=== PATIENT | male | born 1950 | race Caucasian/White ===

== ENCOUNTER 2023-03-31 07:18 | Outpatient (CLI) | payer BC, SELFPAY | END 2023-03-31 07:19 | disposition home or self-care (01) | PROVIDERS: PCP Family Medicine; Visit Provider Family Medicine | DX: Z00.00 Encounter for general adult medical examination without abnormal findings (principal); R73.03 Prediabetes; I10 Essential (primary) hypertension; R00.0 Tachycardia, unspecified; Z01.818 Encounter for other preprocedural examination; Z83.3 Family history of diabetes mellitus | CPT/HCPCS: 80053; 87086 ==

== ENCOUNTER 2023-04-01 12:28 | Outpatient (CLI) | payer BC, SELFPAY ==
--- NOTE | 2023-04-01 13:00 | CRLHL7_ITS ---
For Patients: As a result of the Century Cures Act, medical imaging exams and procedure reports are released immediately into your electronic medical record. You may view this report before your referring provider. If you have questions, please contact your health care provider. Indication: Palpable lump. Technique: Ultrasound soft tissue neck with color Doppler analysis. Comparison: None. Findings/Impression: In the midline area of concern is a soft tissue nodule measuring 7 x 6 x 2 cm. 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 No other abnormality. Dictated by Bandar Zeng MD @ 04/03/2023 8:18:15 AM (Electronically Signed)
== END 2023-04-01 12:29 | disposition home or self-care (01) ==
LOC: US 12:29
PROVIDERS: PCP Family Medicine; Visit Provider Family Medicine
DX: R22.1 Localized swelling, mass and lump, neck (principal); M89.8X8 Other specified disorders of bone, other site
CPT/HCPCS: 76536

== ENCOUNTER 2023-04-07 07:59 | Outpatient (CLI) | payer BC, SELFPAY ==
[2023-04-07] MEDS: SODIUM CHLORIDE 0.9 % (FLUSH) 10 ML SYRINGE IVF (09:58)
[2023-04-07] MEDS: REGADENOSON 0.4 MG/5 ML SYRINGE IVP (09:58)
[2023-04-07 10:10] VITALS: BP 137/81; PULSE 108; RESP 16
--- NOTE | 2023-04-07 13:21 | W.PM.STED ---
Stress Test Note Date Date of test: 04/07/23 Providers Primary care provider: Alysha Diaz Stress test physician: Jaron López Stress Test Note Stress test ordered: Lexiscadi Indication for test: Preoperative examination, shortness of breath Stress test medicine: Lexiscan Results discussion: patient is a very nice said gentleman who presents for the above test after discussion the risks benefits and side effects he would like to proceed pretest EKG shows normal sinus rhythm with a ventricular rate 82 and a blood pressure 129 on 82. Standard Lexiscan non walking protocol is used over a time course of 5 minutes, his maximum was 117, he did not develop any chest pain or any anginal equivalent symptoms, there is no dysrhythmias, there is no ST wave changes suggestive ischemia, and recovered normally. Impression: Negative electrographic portion of Lexiscan Follow up suggested: await nuclear images these will be jointly read by Cardiology and nuclear Medicine, clinical correlation with these will be needed, he recovered normally and was discharged from this department.
== END 2023-04-07 08:00 | disposition home or self-care (01) ==
LOC: STRESS 08:00
PROVIDERS: PCP Family Medicine; Visit Provider Family Medicine
DX: Z01.818 Encounter for other preprocedural examination (principal); R00.0 Tachycardia, unspecified; R94.31 Abnormal electrocardiogram [ECG] [EKG]
CPT/HCPCS: 78452; 93016; 93017; A9500; J2785

== ENCOUNTER 2023-05-28 14:47 | Outpatient (RCR) | payer BC, SELFPAY ==
--- NOTE | 2023-05-28 16:35 | PT.OPEX ---
PT [place] Outpatient Eval PT [facility] Outpatient Eval Start: 05/28/23 08:16 Freq: Status: Active Protocol: Document 05/28/23 08:18 AMS (Rec: 05/28/23 16:33 AMS [id number]) E-signed By Frieda Joseph PT Physical Therapy Outpatient Evaluation Insurance Information Recert Due Date 08/21/23 Insurance Name Medicare B,Blue Cross/Blue Shield Medical Diagnosis S/p right total hip arthroplasty Primary unilateral right hip osteoarthritis Presence of right artificial hip joint Treating Diagnosis Aftercare following joint replacement Right hip pain/stiffness Muscle weakness Difficulty walking Referring MD Hdez Subjective Subjective Nico is a new patient in my office today. He is a pleasant 72yr old male. Previous Dr. Camejo patient. Presents with right hip pain. He reports pain in the groin for several years. This has been progressive over the past 6 months. He has start-up pain and trouble with his shoes and socks. No trouble getting in and out of a vehicle or on and off a chair. He does not have diabetes, does not smoke cigarettes and is not on blood thinners. -Dr. Hdez, , confirmed by patient Patient presents to therapy three weeks prior to right total hip arthroplasty with anterior approach. His surgery date has been switched several times, but is now 06/16 . He localizes pain to right groin, sometimes radiating back into lateral hip, and worsens with all weightbearing activities, including walking , standing, stairs, squatting, and fishing. He started using the quad cane 3 months ago to help with balance/gait. He is scheduled to complete post-op physical therapy at [facility] in [place]. Previous treatment includes physical therapy, but this was minimally helpful long-term. He notes having to alter how he gets into the car; has to bring right hip in first, otherwise difficulty performing. Please see pre-op note for full home set up; patient is able to move his bed to main level after surgery, but most go upstairs to shower. His , who is present at appointment today, will be available 24-7 after surgery. He owns a 4WW that he sometimes uses for longer distances and a 2WW as well. Goals after surgery are to return to walking, fishing, and pain-free activities. He does not formally exercise, although tries to do daily body weight-type exercises for upper body. 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 [facility] Preferred Name Nico Precautions Treatment Precautions/Contraindications Hypertension, hx of skin cancer, left knee surgery 20+ years ago (pt reports meniscal involvement), fall risk Weight Bearing Status Weight Bear as Tolerated Objective Other/Pertinent Objective ROM L knee 0-20-112 (able to actively achieve 10 deg from neutral w/ extension w/ cues for quad set) R knee 0-30-125 (able to actively achieve 5 deg from neutral w/ extension w/ cues for quad set) Hip flexion: 100 deg left, 90 with pain on right Hip IR: L 5 deg R 0 deg Hip ER: moderately limited on right, WFL on left Hip abduction: moderately limited on right Strength: Hip flexors: R 3-/5 L 4/5 Knee extensors: R 4/5 L 4/5 Hip abductors: Not tested Gait/balance: Ambulates with significantly antalgic gait on right w/ quad point cane in left UE, lack of terminal knee extension L > R, forward flexed posture, and lateral sway. Decreased marilin. Palpation/joint mobility: Mild tenderness to palpation over anterior hip. Functional Test Performed & Score LEFS: Not assessed Assessment Assessment/Impression Patient is a 73 year old male presenting for pre-operative visit prior to right total hip arthroplasty on 06/16/23. Upon assessment, patient displays decreased hip/knee ROM, decreased proximal hip strength, impaired balance, and antalgic/impaired gait pattern that places him at increased risk for falls. These impairments lead to difficulty with getting in and out of the car, walking, standing up from a chair, standing, stairs, squatting, and fishing. Patient will be seen post operatively at [facility] to reassess impairments that will be addressed with skilled care. Nico would greatly benefit from skilled PT in order to progress strength, ROM, and ambulation as well as decrease fall risk post operatively in order to perform all household and work duties without significant difficulty or discomfort. Primary Functional Limitations getting in and out of the car, walking, standing up from a chair, standing, stairs, squatting, and fishing Plan of Care Rehabilitation Potential Good Physical Therapy Goals After pre-op visit: ? Patient will be independent with HEP. ? Patient will verbalize knowledge of stair navigation and proper sequencing. ? Patient will have knowledge on home adaptations and use of assistive devices post operatively. ? Patient will have knowledge of edema management. ALL [facility] Coordination/Communication With Referral Source Treatment Plan/Direct Interventions Gait Training,Joint Mobilization,Manual Therapy, Neuromuscular Re-ed,Self-Care/ Home Management,Therapeutic Activities,Therapeutic Exercises Frequency/Duration 1x visit prior to surgery on . Patient scheduled to start outpatient PT s/p SHANIA on 06/23/23. Has HEP to start with pre-operatively. Patient Will Be Discharged From Therapy Completion of LTG(s), Independent w/HEP, Independently Progressing Evaluation Billing Untimed Code Treatment Minutes 15 Complexity Low Certification Information Initial Certification Date 05/28/23 Ending Certification Date 08/21/23 Provider Signature Shows Agreement With POC & Medical Necessity Physician Signature & Date Requested Please Sign/Date Here Physician Comment/Change : Physician NPI Number #
== END 2023-09-25 23:59 | disposition home or self-care (01) ==
PROVIDERS: PCP Family Medicine; Visit Provider Orthopaedic Surgery
DX: M16.11 Unilateral primary osteoarthritis, right hip (principal); Z51.89 Encounter for other specified aftercare
CPT/HCPCS: 97110; 97161

== ENCOUNTER 2023-06-14 09:33 | Outpatient (CLI) | payer BC, SELFPAY | END 2023-06-15 11:08 | disposition home or self-care (01) | LOC: NPINS 06-15 11:11 → LAB 06-15 11:12 | PROVIDERS: PCP Family Medicine; Visit Provider Orthopaedic Surgery | DX: Z01.818 Encounter for other preprocedural examination (principal) | CPT/HCPCS: 86850; 86900; 86901 ==

== ENCOUNTER 2023-06-16 08:39 | Day surgery (SDC) | payer MEDICARE, SELFPAY ==
[2023-06-16] VITALS (22 sets, daily range): BP systolic 88–151; BP diastolic 56–96; PULSE 10–105; RESP 14–18; TEMP 35.8–36.8; O2SAT 94–100; BMI 30.4
--- OUTSIDE RECORDS SUMMARY | 2023-06-16 08:42 | XMS_ITS | Encounter Summary ---
Author Name Unknown Organization [facility] Address [address] [address] Phone Care Team Providers Care Brake Drum Molder Name Role Phone Donnell Hou MD Primary Care Provider Encounter Details Date Type Department Care Team (Latest Contact Info) Description 11/13/2022 Travel Social History Tobacco Use Types Packs/Day Years Used Date Smoking Tobacco: Never Smokeless Tobacco: Former Chew Comments:quit approx 1 year ago Alcohol Use Standard Drinks/Week Comments Yes 0 (1 standard drink = 0.6 oz pur e alcohol) 2-3 drinks monthly Humiliation, Afraid, Rape, and Kick questionnair e Answer Date Recorded Within the last year, have y ou been afraid of your partner or ex-partner? No 02/27/2021 Within the last year, have y ou been humiliated or emotionally abused in other ways by your partner or ex-partner? No Within the last year, have y ou been kicked, hit, slapped, or otherwise physically hurt by your partner or ex-partner? No 02/27/2021 Within the last year, have y ou been raped or forced to have any kind of sexual activity by your partner or ex-partner? No 02/27/2021 Social Connection and Isolation Panel [NHANES] A nswer Date Recorded In a typical week, how many times do you talk on the phone with family, friends, or neighbors? Never 02/27/2021 How often do you get together with friends or re latives? Once a week 02/27/2021 How often do you attend mu-ism or yarsanism serv ices? Never 02/27/2021 Do you belong to any clubs o r organizations such as mu-ism groups, unions, fraternal or athletic groups, or school groups? No 02/27/2021 How often do you attend meet ings of the clubs or organizations you belong to? Never 02/27/2021 Are you , , di vorced, , never , or living with a partner? 02/27/2021 AUDIT-C Answer Date Recorded Q1: How often do you have a drink containing alc ohol? 2-4 times a month 02/27/2021 Q2: How many drinks containi ng alcohol do you have on a typical day when you are drinking? 1 or 2 02/27/2021 Q3: How often do you have si x or more drinks on one occasion? Never 02/27/2021 Overall Financial Resource Strain (CARDIA) Answe r Date Recorded How hard is it for you to pa y for the very basics like food, housing, medical care, and heating? Not hard at all 08/25/2022 PHQ-2 Answer Date Recorded PHQ-2 Total 0 08/25/2022 [employer] of Occupat ional [facility] - Occupational Stress Questionnaire Answer Date Recorded Do you feel stress - tense, restless, nervous, or anxious, or unable to sleep at night because your mind is troubled all the time - these days? Not at all 02/27/2021 Exercise Vital Sign Answer Date Recorde d On average, how many days pe r week do you engage in moderate to strenuous exercise (like a brisk walk)? 7 days 02/27/2021 On average, how many minutes do you engage in exercise at this level? 40 min 02/27/2021 Hunger Vital Sign Answer Date Recorded Within the past 12 months, y ou worried that your food would run out before you got the money to buy more. Never true 08/26/19 23 Within the past 12 months, t he food you bought just didn't last and you didn't have money to get more. Never true 08/25/2022 [facility] - Transportation Answer Date Re corded In the past 12 months, has l ack of transportation kept you from medical appointments or from getting medications? No 08/03 In the past 12 months, has l ack of transportation kept you from meetings, work, or from getting things needed for daily living? No 08/25/2022 Sex and Gender Information Value Date Recorded Sex Assigned at Not on file Gender Identity Not on file Sexual Orientation Not on file Job Start Date Occupation Industry Not on file Not on file Not on file COVID-19 Exposure Response Date Recorded In the last 10 days, have yo u been in contact with someone who was confirmed or suspected to have Coronavirus/COVID-19? No / Unsure 11/13/2022 9:00 AM CDT documented as of this encounter Functional Status Functional Status Response Date of Assess ment Patient's Vision Adequate to Safely Complete Daily Activities Yes 08/10/2022 Patient's Memory Adequate to Safely Complete Daily Activities Yes 08/10/2022 Cognitive Status Response Date of Assessm ent Patient's Judgment Adequate to Safely Complete Daily Activities Yes 08/10/2022 documented as of this encounter Plan of Treatment Not on file documented as of this encounter Visit Diagnoses Not on filedocumented in this encounter Care Teams Brake Drum Molder Relationship Specialty Start Date End Date Donnell Hou MD [address] [place] [address] [phone] PCP - General 12/11/11 documented as of this encounter
--- OUTSIDE RECORDS SUMMARY | 2023-06-16 08:42 | XMS_ITS | Encounter Summary ---
Author Name Unknown Organization [facility] [employer] Replaced By [facility] Address [address] [address] Phone Care Team Providers Care Solar Sales Estimator Name Role Phone Donnell Hou MD Primary Care Provider Encounter Details Date Type Department Care Team (Latest Contact Info) Description 12/19/2022 Travel Social History Tobacco Use Types Packs/Day [...] week 02/27/2021 How often do you attend latter-day or latter-day serv ices? Never 02/27/2021 Do you belong to any clubs o r organizations such as latter-day groups, unions, fraternal or athletic groups, or [...] Answer Date Recorded PHQ-2 Total 0 08/25/2022 [facility] of Occupat ional [facility] - Occupational Stress Questionnaire Answer Date Recorded [...] file Not on file Not on file documented as of this encounter Functional Status [...] on filedocumented in this encounter Care Teams Solar Sales Estimator Relationship Specialty Start Date End Date Donnell Hou MD [address] [place] [address] [phone] PCP - General 12/11/11 documented as of this encounter
--- OUTSIDE RECORDS SUMMARY | 2023-06-16 08:42 | XMS_ITS | Encounter Summary ---
Author Name Unknown Organization [facility] [email or web address] [facility] Address [address] [address] Phone Care Team Providers Care Therapeutic Massage Technician Name Role Phone Donnell Hou MD Primary Care Provider Encounter Details Date Type Department Care Team (Latest Contact Info) Description 12/05/2022 Travel Social History Tobacco Use Types Packs/Day [...] week 02/27/2021 How often do you attend voodoo or adventism serv ices? Never 02/27/2021 Do you belong to any clubs o r organizations such as voodoo groups, unions, fraternal or athletic groups, or [...] Answer Date Recorded PHQ-2 Total 0 08/25/2022 [facility] of Occupat ional [facility] - Occupational Stress Questionnaire Answer Date [...] suspected to have Coronavirus/COVID-19? No / Unsure 11/17/2022 8:08 AM CDT documented as of this encounter [...] on filedocumented in this encounter Care Teams Therapeutic Massage Technician Relationship Specialty Start Date End Date Donnell Hou MD [address] [place] [address] [phone] PCP - General 12/11/11 documented as of this encounter
--- OUTSIDE RECORDS SUMMARY | 2023-06-16 08:42 | XMS_ITS | Encounter Summary ---
Author Name Unknown Organization [facility] and [facility] Address [address] [address] Phone Care Team Providers Care Biodiesel Plant Operations Engineer Name Role Phone Donnell Hou MD Primary Care Provider Reason for Visit * Reason Comments Skin Check Encounter Details Date Type Department Care Team (Late st Contact Info) Description 11/03/2022 2:15 PM CDT Office Visit [facility] [address] [place] [address] Sunny Manrique, BM, [facility] [address] [place], [place] [id number] Skin tumor (Primary Dx); Actinic keratoses; Actinic skin damage; Seborrheic keratoses; Lentigines; Encounter for follow-up surveillance of skin cancer Social History Tobacco Use Types Packs/Day Years Used Date Smoking Tobacco: Never Smokeless Tobacco: Former Chew Tobacco Cessation:Counseling Given: Not Answered Comments:quit approx 1 year ago Alcohol Use [...] week 02/27/2021 How often do you attend caodaism or taoism serv ices? Never 02/27/2021 Do you belong to any clubs o r organizations such as caodaism groups, unions, fraternal or athletic groups, or [...] Answer Date Recorded PHQ-2 Total 0 08/25/2022 [facility] - Occupational Stress Questionnaire Answer Date Recorded [...] suspected to have Coronavirus/COVID-19? No / Unsure 11/03/2022 1:39 PM CDT documented as of this encounter Functional Status Functional Status Response Date of Assess ment Patient's Vision Adequate to Safely Complete Daily Activities Yes 08/10/2022 Patient's Memory Adequate to Safely Complete Daily Activities Yes 08/10/2022 Cognitive Status Response Date of Assessm ent Patient's Judgment Adequate to Safely Complete Daily Activities Yes 08/10/2022 documented as of this encounter Patient Instructions * Patient Instructions* Pearl Montana, THROUGH FREIGHT ENGINEER - 11/03/2022 2:15 PM CDT Thank you for your visit today. Be sure to keep an eye on any new or changing spots. Be sure to wear a broad spectrum sunscreen daily, SPF 30 or higher. Broad Spectrum sunscreens protect the skin from UVA and UVB rays, which are a common cause of skin cancer. If you are out in the sun, or in the water, be sure to re- apply often. Sunscreens are not waterproof or sweatproof, and need to be reapplied. POST SURGERY WOUND CARE INSTRUCTIONS WITH STITCHES KEEP BANDAGE DRY AND IN PLACE FOR THE FIRST 24 HOURS. If it accidentally gets wet or very dirty, itis ok to change it sooner. AFTER 24 HOURS you may shower, but DO NOT soak in a bathtub, pool, or hot tub. Take care of your wound every day by cleaning daily with tap water. Use a gentle twirling motion with a Q-tip to lift any debris that might accumulate. Put a thin layer of Vaseline directly on your wound and cover with a clean, dry bandage every day until you have your stitches removed. If you have signs/symptoms of infection; such as increased redness, swelling, pain, drainage, warmth at site or fever, please contact our office or go to Urgent Care or ER if after hours or on weekends. If your surgery was on facial area(s) such as near eyes or forehead, please note that you may develop some bruising or swelling. This is very common and will diminish - you will benefit by trying to sleep with head slightly elevated for 1-2 days. IF YOU HAVE PAIN: Frequent icing can help with pain and swelling, make sure bandage does not get wet. If your health permits, take acetaminophen (Tylenol) 325mg 1 or 2 tablets every 4 to 6 hours as needed for pain. After 48 hours you may alternate with ibuprofen (brand names include Motrin or Advil) 400mg every 6 hours. Elevating the surgical site will also help with pain and swelling. IF YOU HAVE BLEEDING: Hold firm continuous pressure for 15-20 minutes without stopping to check site. Also, using cold compresses with firm pressure for 15 minutes can help stop bleeding. If this continues after 2 attempts, please contact our office or go to ER. Stitches should be removed in 14 days. If this has not been scheduled, please call our office to schedule at [phone]. You can also have this done at a clinic closer to you. documented in this encounter Ordered Prescriptions Prescription Sig Dispensed Refills Start Date End Da te fluorouracil (Efudex) 5 % cream Apply topically two times a day. To dorsal hands, forearms and ears for 2-3 weeks as instructed 40 g 1 11/03/2022 documented in this encounter Progress Notes * Sunny Manrique BM, [facility] - 11/03/2022 2:15 PM CDT Mr. Clements is a pleasant 72-year-old gentleman who presents today for a waist-up skin examination. He noticed numerous new scaly spots on the dorsal hands and forearms. ?? PAST MEDICAL HISTORY: 1. Nonmelanoma skin cancer. 2. Actinic keratoses. 3. Atypical nevus. 4. 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 ?? 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 He spends the winter months in the [facility] in [place] from about February to August. ROS: no lymphadenopathy ?? PHYSICAL EXAMINATION: a waist-up skin examination was performed at the patient's request. The skin was palpated. This is remarkable for an irregularly pigmented bluish macule on the central lower back. Numerous erythematous, rough, scaly macules are also noted, including on the bilateral ears, dorsal hands, dorsal forearms, scalp (frontal and parietal) and forehead. 16 individual actinic keratoses identified with prominent background actinic skin damage on the ears, dorsal hands and forearms. Multiple lentigines and stuck-on, waxy, hyperkeratotic papules. Well-healed scars, including on the left ear and left jawline. ?? ASSESSMENT AND PLAN: NUB, lower back Recommended punch biopsy for diagnosis due to uncertain etiopathogenesis. Risks including scarring,bleeding, infection and need for more surgery were reviewed. Benefits, alternatives of procedure and necessity of other healthcare team members involved in procedure was discussed Verbal consent was obtained. Before procedure, pause conducted and patient identity, procedure, site, position, specialequipment/requirements were verified. Patient confirmed the correct site. Time out for safety was performed. PROCEDURE DETAILS Punch biopsy. Indication: Diagnosis due to uncertain etiopathogenesis. Each lesion was marked with a surgical pen and confirmed with the patient. Each area was prepped and draped in the usual clean fashion. Each lesion was anesthetized with 1% lidocaine. A punch biopsy was performed of each lesion using a punch biopsy. Each wound was closed with Nylon skin sutures. Hemostasis was confirmed. Estimated blood loss: Minimal. Complications: None. Wound dressing applied, care instructions explained. Care instructions provided to the patient. Actinic keratoses x 16. Given the precancerous nature of these lesions, their removal is medically indicated. Specific locations are specified above and/or in the physical exam. After discussion of the risks, benefits, and alternatives to treatment with cryotherapy, informed consent was obtained. The lesion(s) were treated with liquid nitrogen cryotherapy. Treatment locations are separate and distinct from biopsy sites (if any). The patient tolerated the procedure well. Aftercare instructions were provided in written and verbal form to the patient. Should any of these lesions recur or persist, should the patient develop new symptoms or signs, the patient should return for biopsy. History of nonmelanoma skin cancer. The patient has a history of nonmelanoma (keratinocyte) skin cancer. Due to the history of nonmelanoma skin cancer, there is an increased risk of an additional nonmelanoma skin cancer in the future as compared to patients without this characteristic; therefore, recommended monthly skin self-examinations with the aid of another trusted individual for assistance to evaluate for new, changing, symptomatic, or otherwise worrisome lesions of the skin as these can be signs of skin cancer. Photoprotection was advised and strategies identified. Recommend regular follow-up with a qualified medical provider for complete skin cancer screening examinations. Lentigines. The benign nature of this type of skin lesion(s) was discussed with the patient. No treatment is required. I recommend continued observation. Should symptoms or changes develop related tothis condition, I would recommend a return visit for reassessment. Seborrheic keratoses. The benign nature of this type of skin lesion(s) was discussed with the patient. No treatment is required. I recommend continued observation. Should symptoms or changes develop related to this condition, I would recommend a return visit for reassessment. Actinic skin damage. He has fairly prominent actinic skin damage on his dorsal hands, forearms and ear. We discussed that this is a chronic condition for him that is associated with an increased riskof cutaneous malignancy. He previously completed a field-based therapy treatment for the scalp and part of the face (on further questioning, he did not include the ears at that time), which led to significant improvement. Due to his exacerbation in these aforementioned we will proceed field-based therapy after the summer (in the short-term we treated several lesions with localized therapy as noted above). We discussed risks, benefits and alternatives and he would like to proceed. I issued a prescription for topical fluorouracil and reviewed the risks, side effects and appropriate use, with detailed treatment instructions for which areas to apply this. documented in this encounter Miscellaneous Notes * Clinical Note - Pearl Montana CMA - 11/03/2022 2:15 PM CDT No artificial parts, defibrillator, pacemaker, or heart valve. * Result Encounter Note - Sunny Manrique BM [facility] - 11/03/2022 2:15 PM CDT Needs re-excision (based on dermatopathologist recommendations); please schedule for excision, December 05, at 1.15pm. * Result Encounter Note - Shyla Robertson RN - 11/03/2022 2:15 PM CDT Notified and scheduled. documented in this encounter Plan of Treatment Not on file documented as of this encounter Procedures Procedure Name Priority Date/Time Associated Diagnosis Comments PUNCH BIOPSY OF SKIN (INCLUDING SIMPLE CLOSURE, WHEN PERFORMED); SINGLE LESION Routine 11/03/2022 2:17 PM CDT Skin tumor DESTROY PREMLG LESIONS 15+ Routine 11/03/2022 2:17 PM CDT Actinic keratoses PATHOLOGY SPEC Routine 11/03/2022 1:53 PM CDT Skin tumor documented in this encounter Results * PATHOLOGY SPEC (11/03/2022 1:53 PM CDT) Case Report Surgical Pathology Report ? Case: [id number] ? Authorizing Provider: ??Sunny Manrique BM [facility] ?? Collected: ? 11/03/2022 1353 ? Ordering Location: ? [facility] ? Received: ?11/03/2022 1420 ? CLINIC DERMATOLOGY ? Pathologist: ? Janes Jeter MD ? Specimen: ?Back Lower ? 11/07/2022 10:07 AM [facility] Final Dx Skin, lower back, punch biopsy: Combined nevus (deep penetrating nevus and conventional compound nevus), extending to the biopsy edge. 11/07/2022 10:07 AM [facility] Comments A reexcision of this site is recommended. This case has also been reviewed by Dr. Warren Gil who concurs. 11/07/2022 10:07 AM [facility] Gross Description A. Back Lower. Received is 1 container, specimen in formalin, labeled with proper patient identification. Designated lower back is a 0.5 cm in punch of a brown/michaud, mottled macule. Inked green, submitted bisected, entirely in A1. MMF 11/07/2022 10:07 AM CDT [facility] Microscopic The slide is a punch biopsy fragment of skin which has a compound melanocytic proliferation which is fairly symmetrical with a shouldering junctional component. The junctional melanocytes are lentiginous and focally nested and extend to the biopsy edge. The underlying dermal component has a biphasic morphology. The majority of the dermal melanocytes are of the conventional type with deep maturation and no significant cytologic atypia. There is a second component which is composed of more epithelioid melanocytes with abundant amount of melanin pigmentation and nuclear enlargement. These extend into the reticular dermis. The lesion extends to the punch biopsy edge. 11/07/2022 10:07 AM CDT [facility] Tissue ENTIRE LOWER BACK / Unknown Non-blood collection / Unknown 11/03/2022 1:53 PM CDT 11/03/2022 2:20 PM CDT Sunny Manrique BM, [facility] PATHOLOGY YOVANNY TAYLOR [facility] [address] [place] [address], [facility] documented in this encounter Visit Diagnoses Diagnosis Skin tumor- Primary Neoplasm of uncertain behavior of skin Actinic keratoses Actinic keratosis Actinic skin damage Other chronic dermatitis due to solar radiation Seborrheic keratoses Lentigines Other dyschromia Encounter for follow-up surveillance of skin cancer documented in this encounter Orders Procedures Count Last Ordered Date First Orde red Date DESTROY PREMLG LESIONS 15+ 1 11/03/2022 PUNCH BIOPSY OF SKIN (INCLUD ING SIMPLE CLOSURE, WHEN PERFORMED); SINGLE LESION 1 11/03/2022 documented in this encounter Care Teams Biodiesel Plant Operations Engineer Relationship Specialty Start Date End Date Donnell Hou MD [address] [place] [phone] PCP - General 12/11/11 documented as of this encounter
--- OUTSIDE RECORDS SUMMARY | 2023-06-16 08:42 | XMS_ITS | Encounter Summary ---
Author Name Unknown Organization [facility] Address [address] [address] Phone Care Team Providers Care Computer Security Manager Name Role Phone Donnell Hou MD Primary Care Provider Reason for Visit * Reason Comments Suture Removal Back Encounter Details Date Type Department Care Team (Late st Contact Info) Description 12/19/2022 8:40 AM CDT ALLIED HEALTH/NURSE VISIT [facility] [address] [place] [phone] Maria Dolores Schroeder RN Suture Removal (Back) Social History Tobacco Use Types Packs/Day Years [...] week 02/27/2021 How often do you attend pentecostalism or anglican serv ices? Never 02/27/2021 Do you belong to any clubs o r organizations such as pentecostalism groups, unions, fraternal or athletic groups, or [...] Answer Date Recorded PHQ-2 Total 0 08/25/2022 [facility] ional Health - Occupational Stress Questionnaire Answer [...] Yes 08/10/2022 documented as of this encounter Progress Notes * Maria Dolores Schroeder RN - 12/19/2022 8:40 AM CDT Patient presents to clinic today for removal of sutures from lesion removal done by Dr. Manrique on 12/05/2022. Patient denies any problems with wound. Wound edges are clean, dry, well approximated. 3 sutures removed without difficulty. Steri-strips applied on back locations. Patient will continue to monitor for signs of infection or other problems.Patient will call back with questions or concerns on an as needed basis. Patient tolerated procedure well. documented in this encounter Plan of Treatment Not on file documented as of this encounter Procedures Procedure Name Priority Date/Time Associated Diagnosis Comments NO LOS CHARGE Routine 12/19/2022 11:23 AM CDT Encounter for removal of sutures documented in this encounter Visit Diagnoses Diagnosis Encounter for removal of sutures- Primary documented in this encounter Orders Procedures Count Last Ordered Date First Orde red Date NO LOS CHARGE 1 12/19/2022 documented in this encounter Care Teams Computer Security Manager Relationship Specialty Start Date End Date Donnell Hou MD [address] [place] [phone] PCP - General 12/11/11 documented as of this encounter
--- OUTSIDE RECORDS SUMMARY | 2023-06-16 08:42 | XMS_ITS | Encounter Summary ---
Author Name Unknown Organization [facility] Address [address] [address] Phone Care Team Providers Care Spinneret Person Name Role Phone Donnell Hou MD Primary Care Provider Reason for Visit * Reason Onset Date Comments Results 11/07/2022 Lower back nevus combined needs wle Encounter Details Date Type Department Care Team (Late st Contact Info) Description 11/07/2022 Telephone [facility] [address] [place] [address] Shyla Robertson RN Results (Lower back nevus combined needs wle) Social History Tobacco Use Types Packs/Day Years [...] week 02/27/2021 How often do you attend latter day or buddhist serv ices? Never 02/27/2021 Do you belong to any clubs o r organizations such as latter day groups, unions, fraternal or athletic groups, or [...] Answer Date Recorded PHQ-2 Total 0 08/25/2022 [facility] ional Health - Occupational Stress [...] Yes 08/10/2022 documented as of this encounter Miscellaneous Notes * Telephone Encounter - Shyla Robertsno RN - 11/07/2022 11:37 AM CDT Patient notified as below. Reviewed general information regarding Mohs technique and answered questions to his satisfaction. Appointment scheduled for 12/05/22. Patient advised to call with any questions or concerns. Patient accepting and verbalized understanding. Had no further concerns at this time. ?? DERMATOLOGY PROCEDURE HEALTH HISTORY QUESTIONNAIRE Any artificial joints (hip, knee)? no -Date of surgery no -Any previous joint infections? no ?? Heart Problems? (stents, heart valve, previous infective endocardititis, congenital heart disease, cardiac transplant with valvulopathy)? no Implanted devices (Pacemaker/Defibrillator/Deep Brain Stimulator/Cochlear)? no ?? Have you been advised by any provider to take an antibiotic prior to dental work or other surgery? no -If so, for what reason? no -Preferred pharmacy? no ?? Taking any Blood Thinners (Coumadin/Warfarin, Plavix/Clopidogrel, apixaban (Eliquis), dabigatran (Pradaxa), edoxaban (Savaysa), rivaroxaban (Xarelto), also including Fish oil, Vitamin E, Garlic, Aspirin/NSAIDS? no -If so, for what reason? no -Who manages? no ?? Currently undergoing chemotherapy? no Immunosuppressed/Transplant (chart review) no ?? Diabetes? no If living in an assisted living/intermediate, do you have staff/family coming with you? no Do you need assistance with mobility? no VA patient? no All current medications/allergies: No Known Allergies Current Outpatient Medications Medication Sig ??? fluorouracil (Efudex) 5 % cream Apply topically two times a day. To dorsal hands, forearms and ears for 2-3 weeks as instructed ??? amLODIPine (Norvasc) 5 MG tablet Take 1 Tablet by mouth one time a day. IN THE EVENING ??? olmesartan-hydroCHLOROthiazide (Benicar HCT) 40-12.5 MG oral tablet TAKE 1 TABLET DAILY No current facility-administered medications for this visit. * Telephone Encounter - Shyla Robertson RN - 11/07/2022 10:50 AM CDT Skin, lower back, punch biopsy: Combined nevus (deep penetrating nevus and conventional compound nevus), extending to the biopsy edge. * Telephone Encounter - Shyla Robertson RN - 11/07/2022 10:50 AM CDT ----- Message from KEYON Iyer, [facility] sent at 11/07/2022 10:41 AM CDT ----- Needs re-excision (based on dermatopathologist recommendations); please schedule for excision, December 05, at 1.15pm. documented in this encounter Plan of Treatment Not on file documented as of this encounter Visit Diagnoses Not on filedocumented in this encounter Care Teams Spinneret Person Relationship Specialty Start Date End Date Donnell Hou MD [address] [place] [phone] PCP - General 12/11/11 documented as of this encounter
--- OUTSIDE RECORDS SUMMARY | 2023-06-16 08:42 | XMS_ITS | Clinical Summary ---
Author Name Unknown Organization [facility] [employer] [facility] Address [address] [address] Phone Care Team Providers Care Duck Operator Name Role Phone Donnell Hou MD Primary Care Provider Allergies No known active allergies Medications Medication Sig Dispensed Refills Start Date End Date Status amLODIPine (Norvasc) 5 MG tablet Take 1 Tablet by mouth one time a day. IN THE EVENING 90 Tablet 3 08/25/2022 Active olmesartan-hydroCHL OROthiazide (Benicar HCT) 40-12.5 MG oral tablet TAKE 1 TABLET DAILY 90 Tablet 3 08/25/2022 Active fluorouracil (Efudex) 5 % cream Apply topically two times a day. To dorsal hands, forearms and ears for 2-3 weeks as instructed 40 g 1 11/03/2022 Active Active Problems Problem Noted Date Diagnosed Date Concussion 08/10/2022 Subarachnoid bleed 08/10/2022 Mixed hyperlipidemia 12/23/2016 Gluteal tendinitis of left buttock 04/19/2012 Hamstring tightness/tendonitis left biceps femor is 04/19/2012 Special screening for malignant neoplasm of pros bergman 02/24/2011 Overview: IMO Update 02/11 Essential hypertension 10/17/2005 Overview: IMO Update Immunizations Name Administration Dates Next Due Influenza (Historic Use Only) 03/18/2011, 009 Influenza Fluzone High Dose (65+ Yrs) Tri PF (Flu Clinic) 01/22/2022,12/28/2020 Influenza High Dose Quadrivalent 01/12/2020 Influenza Seasonal Inj A,B High Dose 02/11/2019 Pneumococcal Conjugate, (Prevnar)13-valent 08/25 Pneumovax 23 12/23/2016 TD >7Yrs Preservative Free 07/28/2019 Tdap (7 years and older) 09/07/2017 Tetanus 01/26/2007 Surgical History Surgery Date Site/Laterality Comments COLONOSCOPY,BIOPSY 06/25/2012 [facility] dr denson--tubular adenoma Medical History Medical History Date Comments Unspecified essential hypertension 06/03/2004 Other and unspecified hyperlipidemia 06/03/2004 Hx of dyslipidemia Family History Medical History Relation Comments No Known Problems Brother Diabetes Father Diabetes Mother No Known Problems Sister 1 Diabetes Sister 2 Hypertension Sister 2 No Known Problems Sister 3 Cancer Negative Family Hx Cardiovascular Disease Negative Family Hx Relation Status Comments Brother Alive Father Mother Sister 1 Alive Sister 2 Alive Sister 3 Alive Social History Tobacco Use Types Packs/Day Years [...] often do you attend latter day or oriental orthodox serv ices? Never 02/27/2021 Do you belong [...] Answer Date Recorded PHQ-2 Total 0 08/25/2022 [facility] - Occupational Stress Questionnaire Answer Date [...] file Not on file Not on file Obstetrics History Last Filed Vital Signs Vital Sign Reading Time Taken Comments Blood Pressure 137/88 08/25/2022 10:37 AM CDT Pulse 61 08/25/2022 10:24 AM CDT Temperature 37 ??C (98.6 ??F) 08/25/2022 10: 20 AM CDT Respiratory Rate 18 08/25/2022 10:2 0 AM CDT Oxygen Saturation 97% 08/25/2022 10: 24 AM CDT Inhaled Oxygen Concentration - - Weight 87.4 kg (192 lb 10.9 oz) 023 10:20 AM CDT Height 165.1 cm (5' 5) 08/25/2022 10:2 0 AM CDT Body Mass Index 32.06 08/25/2022 10:20 AM CDT Plan of Treatment Health Maintenance Due Date Last Done Comments CT Colonography 1950 Colonoscopy 1950 Sigmoidoscopy 1950 Shingrix (Zoster recombinant) vaccine (Standing Order) (1 of 2) 1999 RSV Vaccination (60+ yrs) (Abrysvo/Arexvy) (1 - 1-dose 60+ series) 2009 FIT/FOBT 05/19/2013 05/19/2012 COVID-19 Vaccine ( - 2022- season) 2023 09/14/2020, 08/17/2020 Influenza Vaccine Seasonal (Standing Order) (#1) 2023 01/22/2022, 12/28/2020, 01/12/2020, Additional history exists MEDICARE AWV 08/26/2023 08/25/2022, 05/0 11/2017, 02/11/2016 (Declined) Cologuard 08/31/2025 08/31/2022 Colorectal Cancer Screening 08/31/2025 TETANUS (Standing Order) 07/27/2029 020, 09/07/2017, 01/26/2007 Pneumococcal Vaccine: 65+ yrs (Standing Order) Completed 12/23/2016, 08/25/2014 PERTUSSIS (Standing Order) Completed 09/07/2017 HPV Vaccine (Standing Order) Aged Out No longer eligible based on patient's age to complete this topic Hepatitis B Vaccine (Standing Order) Aged Out No longer eligible based on patient's age to complete this topic Advance Directives For more information, please contact: [phone] Latest Code Status on File Code Status Date Activated Date Inactivated Comments Full Code 08/10/2022 2:31 PM 08/11/2022 3:27 PM Care Teams Duck Operator Relationship Specialty Start Date End Date Donnell Hou MD [address] [place] [address] [phone] PCP - General 12/11/11
--- OUTSIDE RECORDS SUMMARY | 2023-06-16 08:42 | XMS_ITS | Encounter Summary ---
Author Name Unknown Organization [facility] [employer] [facility] Address [address] [address] Phone Care Team Providers Care Roofer Vinyl Coating Name Role Phone Donnell Hou MD Primary Care Provider Encounter Details Date Type Department Care Team (Latest Contact Info) Description 11/03/2022 Travel Social History Tobacco Use Types Packs/Day [...] week 02/27/2021 How often do you attend hindu or voodoo serv ices? Never 02/27/2021 Do you belong to any clubs o r organizations such as hindu groups, unions, fraternal or athletic groups, or [...] Answer Date Recorded PHQ-2 Total 0 08/25/2022 [facility]at ional [facility] - Occupational Stress Questionnaire Answer [...] on filedocumented in this encounter Care Teams Roofer Vinyl Coating Relationship Specialty Start Date End Date Donnell Hou MD [address] [place] [address] [phone] PCP - General 12/11/11 documented as of this encounter
--- OUTSIDE RECORDS SUMMARY | 2023-06-16 08:42 | XMS_ITS | Encounter Summary ---
Author Name Unknown Organization [facility] [employer] [facility] Address [address] [address] Phone Care Team Providers Care Scow Captain Name Role Phone Donnell Hou MD Primary Care Provider Encounter Details Date Type Department Care Team (Latest Contact Info) Description 11/17/2022 Travel Social History Tobacco Use Types Packs/Day [...] week 02/27/2021 How often do you attend zoroastrian or caodaism serv ices? Never 02/27/2021 Do you belong to any clubs o r organizations such as zoroastrian groups, unions, fraternal or athletic groups, or [...] Answer Date Recorded PHQ-2 Total 0 08/25/2022 [facility]at ional [facility] - Occupational Stress Questionnaire Answer Date [...] on filedocumented in this encounter Care Teams Scow Captain Relationship Specialty Start Date End Date Donnell Hou MD [address] [place] [address] [phone] PCP - General 12/11/11 documented as of this encounter
--- OUTSIDE RECORDS SUMMARY | 2023-06-16 08:42 | XMS_ITS | Encounter Summary ---
Author Name Unknown Organization [facility] Address [address] [address] Phone Care Team Providers Care Contract Preparer Name Role Phone Dnonell Hou MD Primary Care Provider Reason for Visit * Reason Comments Skin Procedure WLE Encounter Details Date Type Department Care Team (Late st Contact Info) Description 12/05/2022 1:15 PM CDT Office Visit [facility] [address] [place] [address] Sunny Manrique, BM, [facility] [address] [place] [address] Atypical nevus (Primary Dx) Social History Tobacco Use Types Packs/Day Years [...] week 02/27/2021 How often do you attend synagogue or confucianism serv ices? Never 02/27/2021 Do you belong to any clubs o r organizations such as synagogue groups, unions, fraternal or athletic groups, or [...] Answer Date Recorded PHQ-2 Total 0 08/25/2022 [facility] - Occupational Stress [...] this encounter Patient Instructions * Patient Instructions* Corinna Dotson RN - 12/05/2022 1:15 PM CDT POST SURGERY WOUND CARE INSTRUCTIONS WITH STITCHES Before you leave today, please schedule an appointment to have your stitches removed in 14 days. (Men - please do not shave within one inch of your sutures!) If you are planning to have your stitches removed elsewhere, please talk with one of our clinical staff to review importance of applying steri-strips or butterfly bandages afterwards [phone]. KEEP BANDAGE DRY AND IN PLACE FOR THE FIRST 48 HOURS. If it accidentally gets wet or very dirty, itis ok to change it sooner. AFTER 48 HOURS you may shower, but DO NOT soak in a bathtub, pool, or hot tub. Take care of your wound every day by cleaning daily with mild soap and water. Use a gentle twirlingmotion with a Q-tip to lift any debris that might accumulate. Put a thin layer of Vaseline directlyon your wound and cover with a clean, dry bandage every day until you have your stitches removed. If your surgery was on facial area(s) such as near eyes or forehead, please note that you may develop some bruising or swelling. This is very common and will diminish - you will benefit by trying to sleep with head slightly elevated for 1-2 days. If you have signs/symptoms of infection, such as increased redness, swelling, pain, drainage, warmth at site or fever, please contact our office or go to Urgent Care or ER if after hours or on weekends. IF YOU HAVE PAIN: Frequent icing can [...] contact our office or go to ER. CAll Hoffman to make appt for suture removal, ok for RN to do, order sent to their office. documented in this encounter Procedure Notes * Sunny Manrique, KEYON, [facility] - 12/05/2022 1:15 PM CDT INDICATION: REMOVAL POSTOP DIAGNOSIS: deeply penetrating nevus SITE: lower back Preoperative size: 0.4 cm x 0.4 cm with 2 mm circumferential margin for total excision diameter of 0.8 cm x 0.8 cm. PROCEDURE: Punch excision with intermediate primary closure INFORMED CONSENT: Risks including scarring, bleeding, infection and need for more surgery were reviewed. Benefits, alternatives of procedure and necessity of other healthcare team members involved inprocedure was discussed Verbal consent was obtained. Before procedure, pause conducted and patient identity, procedure, site, position, pecial equipment/requirements were verified. Time out for safety was performed. Prior to the procedure, final verification of the patient identity and correct marked surgical sitewas performed. The patient confirmed the site. The anesthesia used was 1% lidocaine with epinephrine 1:200,000. The skin was prepped in a sterile fashion with alcohol. A specimen was excised in a circular fashion through the full thickness of thedermis into the fat using a punch. All layers of skin were reapproximated with Monocryl subcutaneous sutures and Nylon skin sutures. Blood loss: Minimal. Complications: None. Wound care: Routine. Care instructions provided to the patient. documented in this encounter Miscellaneous Notes * Clinical Note - Corinna Dotson RN - 12/05/2022 1:15 PM CDT No artificial parts, defibrillator, pacemaker, or heart valve. * Result Encounter Note - Sunny Manrique BM [facility] - 12/05/2022 1:15 PM CDT Lesion removed, no further treatment required at this site. * Result Encounter Note - Vandana Montero RN - 12/05/2022 1:15 PM CDT Result letter sent * Addendum Note - Corinna Dotson RN - 12/05/2022 1:15 PM CDTAddended by: CORINNA DOTSON on: 12/05/2022 01:35 PM Modules accepted: Orders documented in this encounter Plan of Treatment Not on file documented as of this encounter Procedures Procedure Name Priority Date/Time Associated Diagnosis Comments LAYR REINALDO WND TRUNK,ARM,LEG <2.5CM Routine 12/05/2022 1:24 PM CDT Atypical nevus EXC SKIN BENIG 0.6-1CM TRUNK,ARM,LEG Routine 12/05/2022 1:24 PM CDT Atypical nevus PATHOLOGY SPEC Routine 12/05/2022 1:23 PM CDT Atypical nevus documented in this encounter Results * PATHOLOGY SPEC (12/05/2022 1:23 PM CDT) Case Report Surgical Pathology Report ? Case: [id number] ? Authorizing Provider: ??Sunny Manrique, BM, BC ?? Collected: ? 12/05/2022 1323 ? Ordering Location: ? [facility] ? Received: ?12/05/2022 1436 ? CLINIC DERMATOLOGY ? Pathologist: ? Warren Gil MD ? Specimen: ?Back Lower ? 12/11/2022 6:58 AM CDT [facility] Final Dx Skin, lower back, punch excision: Residual dermal nevus, free of the margins. 12/11/2022 6:58 AM CDT [facility] Gross Description A. Back Lower. Received in one container, specimen in formalin, labeled with proper patient identification. Designated lower back is a 0.9 cm larios-white skin punch excised to a depth of 0.9 cm. The skin is significant for a 0.5 cm larios-white well-healed scar, 0.1 cm to the nearest peripheral margin. Inked orange, sectioned and entirely and sequentially submitted in A1-A3. TME 12/11/2022 6:58 AM CDT [facility] Microscopic Microscopic examination performed. 12/11/2022 6:58 AM CDT [facility] Tissue ENTIRE LOWER BACK / Unknown Non-blood collection / Unknown 12/05/2022 1:23 PM CDT 12/05/2022 2:36 PM CDT Sunny Manrique BM, [facility] PATHOLOGY YOVANNY TAYLOR [facility] 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
--- OUTSIDE RECORDS SUMMARY | 2023-06-16 08:42 | XMS_ITS | Encounter Summary ---
Author Name Unknown Organization [facility] Address [address] [address] Phone Care Team Providers Care Rooming House Keeper Name Role Phone Donnell Hou MD Primary Care Provider Reason for Visit * Reason Comments Other Suture removal on ba ck Imm/Inj shingric Encounter Details Date Type Department Care Team (Latest Contact Info) Description 11/17/2022 8:20 AM CDT ALLIED HEALTH/NURSE VISIT [facility] [address] [phone] Magalys Kirk RN Other (Suture removal on back ); Imm/Inj (shingric) Social History Tobacco Use Types Packs/Day Years [...] week 02/27/2021 How often do you attend orthodox or synagogue serv ices? Never 02/27/2021 Do you belong to any clubs o r organizations such as orthodox groups, unions, fraternal or athletic groups, or [...] Total 0 08/25/2022 [facility] - Occupational Stress Questionnaire Answer Date [...] as of this encounter Miscellaneous Notes * Clinical Note - Patt Porter CMA - 11/17/2022 8:20 AM CDT This chart was prepped for visit by Patt Porter CMA on 11/14/2022. * Clinical Note - Magalys Kirk RN - 11/17/2022 8:20 AM CDT SUBJECTIVE: Alec returns today for suture removal. He had a lesion removed from his lower back on11/03/22 by Sunny TA, [facility]. No problems since then. OBJECTIVE: Area healed well. Sutures removed per clinic protocol without complication. ASSESSMENT: Suture Removal PLAN: Follow up as needed. documented in this encounter Plan of Treatment Not on file documented as of this encounter Visit Diagnoses Diagnosis Skin tumor- Primary Neoplasm of uncertain behavior of skin documented in this encounter Care Teams Rooming House Keeper Relationship Specialty Start Date End Date Donnell Hou MD [address] [place] [phone] PCP - General 12/11/11 documented as of this encounter
--- OUTSIDE RECORDS SUMMARY | 2023-06-16 08:43 | XMS_ITS | Encounter Summary ---
Author Name Unknown Organization [facility] Address [address] [address] Phone Care Team Providers Care Police Academy Program Coordinator Name Role Phone Donnell Hou MD Primary Care Provider Reason for Visit * Reason Onset Date Comments Refill Request 06/26/2022 Amlodipine Encounter Details Date Type Department Care Team (Late st Contact Info) Description 06/26/2022 Refill NURSE CARE LINE [address] [place] [address] Danielle Cameron RN Refill Request (Amlodipine ) Social History Tobacco Use Types Packs/Day Years [...] week 02/27/2021 How often do you attend yazidism or muslim serv ices? Never 02/27/2021 Do you belong to any clubs o r organizations such as yazidism groups, unions, fraternal or athletic groups, or [...] care, and heating? Not hard at all 02/03/2022 PHQ-2 Answer Date Recorded PHQ-2 Total 0 02/03/2022 [facility] of Occupat ional Health - Occupational Stress [...] the money to buy more. Never true 02/04/20 22 Within the past 12 months, t he food you bought just didn't last and you didn't have money to get more. Never true 02/03/2022 PRAPARE - Transportation Answer Date Re corded In the past 12 months, has l ack of transportation kept you from medical appointments or from getting medications? No 07/2021 In the past 12 months, has l ack of transportation kept you from meetings, work, or from getting things needed for daily living? No 02/03/2022 Sex and Gender Information Value Date Recorded Sex Assigned at Not on file Gender Identity Not on file Sexual Orientation Not on file Job Start Date Occupation Industry Not on file Not on file Not on file documented as of this encounter Ordered Prescriptions Prescription Sig Dispensed Refills Start Date End Da te amLODIPine (Norvasc) 5 MG tablet Take 1 Tablet by mouth one time a day. IN THE EVENING 30 Tablet 0 06/26/2022 08/11/2022 documented in this encounter Miscellaneous Notes * Telephone Encounter - Danielle Cameron RN - 06/26/2022 8:53 AM CST I have reviewed the documentation related to this refill. This refill request is Ok to authorize per the [facility] Medication Refill Standing Orders. BAILER * Telephone Encounter - Utility, Refill Wizard - 06/26/2022 8:50 AM BAG BAILER amLODIPine (Norvasc) 5 MG tablet Hypertension - Alpha/Beta/Calcium Channel Blockers -> The patient is requesting a renewal from a different pharmacy. -> If patient has a history of hypertension, ensure it was assessed in the last 12 months. -> Refill x 9 months, qty: 90, refills: 2 (until due for an office visit, DBP check and SBP check) Last qualifying visit: 02/03/2022 (with DONNELL HOU) Next scheduled visit: 12/10/2022 (in Family Practice) Last ordered by TACHO ELLIOTT M: 12/24/2021 (184 days ago) QTY: 90, Refills: 3, Sig: take 1 tablet by mouth one time a day. in the evening (unchanged) SBP: 138 mm Hg on 02/03/2022 DBP: 80 mm Hg on 02/03/2022 [facility] Embedded Refills, Reference: [id number], 06/26/2022 8:50:40 AM BAG BAILER, Pool: JULIOCESAR ([id number]) BAILER * Telephone Encounter - Danielle Cameron RN - 06/26/2022 8:48 AM CST [facility] Caller: Avani, Spouse ??[phone] (Today, ??8:24 AM) Call Center Refill Message Provider: Donnell Hou MD Medication: amLODIPine (Norvasc) 5 MG tablet Sig: Take 1 Tablet by mouth one time a day. IN THE EVENING Quantity: 90 Tablet Pharmacy: [facility], ??E- ?? Comments: No longer using [facility]. [facility]Patient is also requesting a 30 day supply of amLODIPine (Norvasc) 5 MG tablet be sent to [facility], [place], [place]. Informed patient to call the Pharmacy for refill status. Call Center Refill Message Medication: ??olmesartan-hydroCHLOROthiazide (Benicar HCT) 40-12.5 MG oral tablet Sig: ??TAKE 1 TABLET DAILY Quantity: ??90 Tablet BAILER documented in this encounter Plan of Treatment Not on file documented as of this encounter Visit Diagnoses Not on filedocumented in this encounter Discontinued Medications Medication Sig Discontinue Reason Start Date End Da te amLODIPine (Norvasc) 5 MG tablet Take 1 Tablet by mouth one time a day. IN THE EVENING Reorder 12/24/2021 06/26/2022 documented as of this encounter Care Teams Police Academy Program Coordinator Relationship Specialty Start Date End Date Donnell Hou MD [address] [place] [phone] PCP - General 12/11/11 documented as of this encounter
--- OUTSIDE RECORDS SUMMARY | 2023-06-16 08:43 | XMS_ITS | Encounter Summary ---
Author Name Unknown Organization [facility] Address [address] [address] Phone Care Team Providers Care Upper Trimmer Name Role Phone Donnell Hou MD Primary Care Provider Encounter Details Date Type Department Care Team (Latest Contact Info) Description 08/10/2022 Travel Social History Tobacco Use Types Packs/Day [...] week 02/27/2021 How often do you attend presybeterian or anglican serv ices? Never 02/27/2021 Do you belong to any clubs o r organizations such as presybeterian groups, unions, fraternal or athletic groups, or [...] Answer Date Recorded PHQ-2 Total 0 02/03/2022 [facility] of Occupat ional [facility] - Occupational Stress Questionnaire Answer Date [...] suspected to have Coronavirus/COVID-19? No / Unsure 08/10/2022 1:27 PM CDT documented as of this encounter [...] on filedocumented in this encounter Care Teams Upper Trimmer Relationship Specialty Start Date End Date Donnell Hou MD [address] [place] [address] [phone] PCP - General 12/11/11 documented as of this encounter
--- OUTSIDE RECORDS SUMMARY | 2023-06-16 08:43 | XMS_ITS | Encounter Summary ---
Author Name Unknown Organization [facility] [employer] [facility] Address [address] [address] Phone Care Team Providers Care Nuclear Power Plant Engineer Name Role Phone Donnell Hou MD Primary Care Provider Encounter Details Date Type Department Care Team (Latest Contact Info) Description 08/25/2022 Travel Social History Tobacco Use Types Packs/Day [...] week 02/27/2021 How often do you attend restorationist or congregational serv ices? Never 02/27/2021 Do you belong to any clubs o r organizations such as restorationist groups, unions, fraternal or athletic groups, or [...] Answer Date Recorded PHQ-2 Total 0 08/25/2022 [facility] of Occupat ional [facility] - Occupational Stress Questionnaire Answer Date Recorded [...] suspected to have Coronavirus/COVID-19? No / Unsure 08/25/2022 10:18 AM CDT documented as of this encounter [...] on filedocumented in this encounter Care Teams Nuclear Power Plant Engineer Relationship Specialty Start Date End Date Donnell Hou MD [address] [place] [phone] PCP - General 12/11/11 documented as of this encounter
--- OUTSIDE RECORDS SUMMARY | 2023-06-16 08:43 | XMS_ITS | Encounter Summary ---
Author Name Unknown Organization [facility] [employer] [facility] Address [address] [address] Phone Care Team Providers Care Clean In Places Operator Name Role Phone Donnell Hou MD Primary Care Provider Reason for Referral * Office Visit (Routine) Specialty Diagnoses / Procedures Referred By Erick chamberlain Referred To Contact Tamiko Shaikh APRN, CNP [address] [place] [address] Referral ID Status Reason Start Date Expiration Date Visits Re quested Visits Authorized Question Answer Follow-up With: Primary Care Referral Type: Hospital Follow-up Follow-up Time Frame: 2 Weeks Diagnosis supporting this Referral: Hospital discharge follow-up [[id number]] Reason for Visit * Reason Comments Fall * Auth/Cert (Routine) Specialty Diagnoses / Procedures Referred By Erick chamberlain Referred To Contact Diagnoses Contusion of scalp, initial encounter Injury of head, initial encounter Subarachnoid hematoma, with unknown loss of consciousness status, initial encounter (HCC) Donte Lobato MBBS [address] [place] [address] Referral ID Status Reason Start Date Expiration Date Visits Re quested Visits Authorized [id number] 1 1 Encounter Details Date Type Department Care Team (Late st Contact Info) Description 08/10/2022 9:14 AM CDT - 08/11/2022 11:27 AM CDT Emergency [facility] [address] [place] [address] [phone] Nahun Seth MD [address] [id number] Donte Lobato MBBS [address] [place] [address] Injury of head, initial encounter (Primary Dx); Subarachnoid hematoma, with unknown loss of consciousness status, initial encounter (HCC); Contusion of scalp, initial encounter; Subarachnoid bleed (HCC) Discharge Disposition: Home and/or Self Care Social History Tobacco Use Types Packs/Day Years [...] often do you attend latter day or pentecostalism serv ices? Never 02/27/2021 Do you belong [...] Answer Date Recorded PHQ-2 Total 0 02/03/2022 [facility] Occupat ional Health - Occupational Stress [...] PM CDT documented as of this encounter Last Filed Vital Signs Vital Sign Reading Time Taken Comments Blood Pressure 137/50 08/11/2022 9:37 AM CDT Pulse 98 08/11/2022 9:37 AM CDT Temperature 36.8 ??C (98.2 ??F) 08/11/2022 7:15 AM CD T Respiratory Rate 15 08/11/2022 9:37 AM CDT Oxygen Saturation 96% 08/11/2022 7:41 AM CDT Inhaled Oxygen Concentration - - Weight 83.9 kg (185 lb) 08/10/2022 7:15 PM CDT Height 165.1 cm (5' 5) 08/10/2022 7:15 PM CDT Body Mass Index 30.79 08/10/2022 7:15 PM CDT documented in this encounter Functional Status Functional Status Response Date of Assess ment Patient's Vision Adequate to Safely Complete Daily Activities Yes 08/10/2022 Patient's Memory Adequate to Safely Complete Daily Activities Yes 08/10/2022 Cognitive Status Response Date of Assessm ent Patient's Judgment Adequate to Safely Complete Daily Activities Yes 08/10/2022 documented as of this encounter Discharge Summaries * Tamiko Shaikh APRN, VERA - 08/11/2022 10:32 AM CDT Images from the original note were not included. Discharge Summary Hospital Medicine Service Patient Name: Alec Clements Date of : 1950 Age: 72 years old Primary Physician: Donnell Hou MD Admitting Physician: JOHNATHON Urias Admission Date: 08/10/2022 Discharging Physician: Tamiko Shaikh APRN, DBA DEVELOPER Dr. Donte Lobato Discharge Date: 08/11/2022 Discharge Diagnoses Principal Problem: Subarachnoid bleed (HCC) Active Problems: Essential hypertension Mixed hyperlipidemia Concussion Follow-Up Recommendations for the Outpatient Clinician -Hold ASA for at least 2 weeks or until you see Dr. Hou Hospital Course Mr. Alec Clements is a 72 year-old male with a past medical history notable for hypertension andhyperlipidemia who was admitted to the hospital on 08/10/22 for observation after he presented to theED with acute confusion and headache after a probable unwitnessed fall outside. Head CT showed a small amount of subarachnoid blood in the right temporal lobe. CT cervical spine showed degenerative changes, but no acute bony abnormalities. On 08/10, the ED provider discussed the case with Dr. Gonzalez from trauma surgery. She recommended admission overnight with a repeat head CT in the morning. Specialist was comfortable admitting in [place], as this was also the strong preference of the patient and . Repeat head CT from this morning showed a stable to decreasing subarachnoid hemorrhage along the right temporal lobe. There may be a small component of subdural hemorrhage along the temporal lobe on the right as well. I reviewed the head CT with Dr. Cook of trauma surgery this morning. She felt that the CT wasstable, and if clinically stable, ok to discharge. Hold ASA for at least 2 weeks or until he sees Dr. Hou. Avoid extreme fluctuations of blood pressure (goal <180 systolic). He was instructed to avoid heavy lifting, constipation, or anything that increases ICP. He and his were encouraged to return to the ED if he experienced altered mental status changes, gait instability, headache, or visual disturbances. Avoid NSAIDS and ETOH. Disposition and Discharge Plan Medications: Current Discharge Medication List Changed Prescriptions Details amLODIPine 5 MG tablet Commonly known as: Norvasc Dose: 5 mg 5 mg, Oral, ONCE DAILY, IN THE EVENING What changed: Another medication with the same name was removed. Continue taking this medication, and follow the directions you see here. aspirin EC 81 MG tablet Dose: 81 mg 81 mg, Oral, ONCE DAILY, Do not split or crush. Hold for at least 2 weeks or until you see Dr. Hou. What changed: additional instructions Continued Details olmesartan-hydroCHLOROthiazide 40-12.5 MG oral tablet Commonly known as: Benicar HCT TAKE 1 TABLET DAILY You might also be taking other medications not listed above. If you have questions about any of your other medications, talk to the person who prescribed them or your Primary Care Provider. Stopped fluorouracil 5 % cream Commonly known as: Efudex triamcinolone acetonide 0.1 % cream Commonly known as: Kenalog Disposition: Alec was discharged from [facility] to home. Alec was seen and examined on the date of discharge. Patient Instructions / Education: Please see After Visit Summary Future Appointments Date Time Provider Department Center 11/03/2022 2:15 PM Jolene Manrique, [place], [facility] 12/10/2022 8:20 AM Donnell Hou MD [facility] Referrals & Outpatient Orders: Discharge Procedure Orders Follow-up With: Primary Care; Referral Type: Hospital Follow-up Referral Priority: Routine Referral Type: Office Visit Number of Visits Requested: 1 Expiration Date: 02/10/23 Discharge Diet Order Specific Question Answer Comments Home Diet No Restrictions Activity as tolerated Condition on Discharge Vital Signs: Blood pressure 137/50, pulse 98, temperature 36.8 ??C (98.2 ??F), temperature source Oral, resp. rate 15, height 1.651 m (5' 5), weight 83.9 kg (185 lb), SpO2 96 %. Physical Exam General Appearance: Alert male, sitting up at the edge of the bed in NAD. CV: Regular, tachycardic. No peripheral edema. Resp: Unlabored respirations, room air, LCTA. GI/ABD: Soft, not tender. Bowel sounds active. Skin: Warm, dry, and well-perfused. MSK: Moves all extremities independently. Neuro: Alert and oriented x4. Psych: Cooperative and pleasant. Code Status:Full Code Hospitalization Data and Events Recent Labs: Recent Results (from the past 72 hour(s)) BASIC METABOLIC PANEL Result Value Ref Range Sodium 138 134 - 143 mEq/L Potassium 3.9 3.4 - 5.1 mEq/L Chloride 104 99 - 110 mEq/L Carbon Dioxide 24 19 - 29 mEq/L Anion Gap 10.0 3.0 - 15.0 mEq/L Blood Urea Nitrogen 19 5 - 24 mg/dL Creatinine 1.06 0.70 - 1.20 mg/dL Glomerular Filtration Rate 74 >60 mL/min/1.73 m*2 Calcium 9.5 8.4 - 10.5 mg/dL Glucose 135 (H) 70 - 99 mg/dL Narrative Current ADA criteria for Glucose: Normal: 70-99 mg/dL Impaired Fasting Glucose: 100-125 mg/dL Diabetes Mellitus: at or above 126 mg/dL The diagnosis of diabetes must be confirmed on a subsequent day by measuring Fasting Plasma Glucose, 2-hr PG or random plasma glucose (if symptoms are present). APTT Result Value Ref Range APTT 24 23 - 33 sec PROTIME Result Value Ref Range INR 1.0 0.9 - 1.1 Protime 13.2 12.0 - 14.1 sec Narrative Suggested therapeutic INR ranges for oral anticoagulant therapy: Category INR Value Prophylaxis 2.0-3.0 Treat Thrombosis or Embolism 2.0-3.0 Prosthetic Heart Valve 2.5-3.5 HEMOGRAM/DIFFERENTIAL Result Value Ref Range WBC 7.1 3.2 - 11.0 10*9/L RBC 4.81 4.14 - 5.76 10*12/L HGB 14.2 12.9 - 16.9 g/dL HCT 41.8 38.4 - 49.7 % MCV 86.9 81.4 - 99.0 fL MCH 29.5 26.7 - 33.1 pg MCHC 34.0 31.6 - 35.5 g/dL RDW 13.5 11.3 - 14.6 % PLT 244 130 - 375 10*9/L Neutrophils % 58.2 % Lymphocytes % 26.5 % Monocytes % 10.4 % Eosinophils % 3.9 % Basophils % 0.4 % Immature Granulocytes % 0.6 % Neutrophils Absolute 4.1 1.5 - 7.6 10*9/L Lymphocytes Absolute 1.9 0.8 - 3.3 10*9/L Monocytes Absolute 0.7 0.2 - 0.9 10*9/L Eosinophils Absolute 0.3 0.0 - 0.4 10*9/L Basophils Absolute 0.0 0.0 - 0.1 10*9/L Immature Granulocytes Absolute 0.04 0.00 - 0.06 10*9/L ALCOHOL Result Value Ref Range Alcohol <10.0 <=10.0 mg/dL Consultants: Trauma surgery Imaging: Results for orders placed or performed during the hospital encounter of 08/10/[address] HEAD WO IV CONTRAST Narrative This document is currently in Preliminary Status Exam CT HEAD WO IV CONTRAST HISTORY: Head trauma, minor (Age >= 65y); COMPARISON: None. FINDINGS: Normal ventricular size. No midline shift. Increased density at the base of the right temporal lobe. This appears to represent a small amount of subarachnoid blood. Basal cisterns appear patent. No parenchymal hematoma. Left posterior extracranial soft tissue injury. No acute fracture. Clear mastoid air cells and visualized portions of paranasal sinuses. IMPRESSION: 1. Left posterior extracranial soft tissue injury. No acute fracture 2. Small amount of subarachnoid blood in the region of the right temporal lobe. Dictated By: Jolene Lewis MD 08/10/2022 10:47 AM Edited By: ANNA 08/10/2022 11:[address] CERVICAL SPINE WO IV CONTRAST Narrative This document is currently in Preliminary Status Exam CT CERVICAL SPINE WO IV CONTRAST HISTORY: Neck trauma (Age >= 65y); COMPARISON: None. FINDINGS: Straightening of normal cervical lordosis. Alignment and positioning otherwise normal. Diffuse disc space narrowing and hypertrophy. Diffuse facet arthropathy. Prominent anterior hypertrophic spurs. No acute bony abnormality. IMPRESSION: Degenerative change is present. No acute bony abnormality. Dictated By: Jolene Lewis MD 08/10/2022 10:49 AM Edited By: ANNA 08/10/2022 11:00 AM 3. XR CHEST 1 VIEW Narrative This document is currently in Preliminary Status Exam XR CHEST 1 VIEW HISTORY: fall, landed on back apparently; NOTE: Will this exam be read by [facility]?->No COMPARISON: None. FINDINGS: Normal heart size and vascularity. Clear lungs. No pneumothorax. Advanced arthritic change of the shoulders. Multiple EKG leads overlie the chest. Dictated By: Jolene Lewis MD 08/10/2022 10:43 AM Edited By: ANNA 08/10/2022 10:[address] HEAD WO IV CONTRAST Narrative This document is currently in Preliminary Status Exam CT HEAD WO IV CONTRAST INDICATION: Subarachnoid hemorrhage (SAH), follow up. TECHNIQUE: Routine CT of the brain was performed without contrast. FINDINGS: Comparison made with 08/10/2022. Calvarium is intact. Scalp contusion posterior left parietal frontal region is seen. Previously seen subarachnoid blood along the posterior right temporal lobe is similar to smaller in size. May be a small component of subdural hemorrhage as well, series 4, image 39. No mass effect or midline shift. No parenchymal hemorrhage. IMPRESSION: Stable to decreasing subarachnoid hemorrhage along the right temporal lobe. May be a small component of subdural hemorrhage along the temporal lobe on the right as well. Dictated By: Nathan Yeboah MD 08/11/2022 8:29 AM Edited By: MAICO 08/11/2022 9:09 AM Tamiko Shaikh APRN, DBA DEVELOPER Patient was evaluated today in collaboration with: Dr. Donte Lobato. Total time spent for discharge on date of discharge: Greater than 30 minutes. documented in this encounter Ordered Prescriptions Prescription Sig Dispensed Refills Start Date End Da te aspirin EC 81 MG tablet Take 1 Tablet by mouth one time a day. Do not split or crush. Hold for at least 2 weeks or until you see Dr. Hou. 100 Tablet 0 08/11/2022 08/25/2022 documented in this encounter Discharge Disposition Disposition Code Departure Means Destination Comment s Home and/or Self Fdc documented in this encounter Progress Notes * Halle Blancas RN - 08/11/2022 11:23 AM CDT Patient discharged home with . AVS given to patient who verbalized understanding. F/u appointment made with PCP. * Carmela Long RN - 08/11/2022 1:39 AM CDT Vital signs obtained at this time. BP 149/80, pulse88, RR 20, Oxygen sat 95% RA, Temp 100.3 f. PRN tylenol and PRN hydralazine given as per orders. Pt denies pain. Alert and orientated. Pupils 3 and brisk. * Carmela Long RN - 08/11/2022 12:53 AM CDT Pt in bed, eyes closed. No s/s of pain or distress. Call light within reach. * Carmela Long RN - 08/10/2022 11:30 PM CDT Pt is alert and orientated X 4. Denies pain. Did eat a bedtime snack and offers no complaints. Current blood pressure 141/69, Pulse 67, RR 18, and oxygen sat 96 on room air. Cardiac monitoring shows NSR. Hematoma to back of head has decreased in size and has no drainage. * Halle Blancas RN - 08/10/2022 1:33 PM CDT 72 y/o admitted as observation patient for subarachnoid hemorrhage. * Jany Gonzalez MD - 08/10/2022 11:35 AM CDT Trauma Note Called by Dr Seth regarding Nico. Had a likely fall, but does not remember it. Has a very tiny SAH, no other blood. GCS 14-15 depending on how you'd score him for confusion. CT CSpine reviewed, negative. He does take a 81 mg ASA. Given the tiny SAH, should be monitored overnight, with repeat CT head tomorrow. Dr. Seth and Idiscussed options of transfer here versus monitoring in [place]. Family would like to stay closer to home if able. If he has any changes in neuro status, or other changes will plan to transfer to [facility], however, currently with the tiny SAH if he did come to [facility], I would not consult Neurosurgery and would be monitoring him only, with repeat scan tomorrow. I think it is very reasonable to monitor him there, with a trauma surgeon review of the CT tomorrowvia phone consult. Currently, family, Dr. Seth and I are all in agreement that is the best course of action. Will monitor in [place] if any change occurs we will be happy to have him transferred to [facility] for trauma evaluation. No need for Keppra at this time. Jany Gonzalez MD Trauma/ACS [phone] documented in this encounter H&P Notes * Ezra Clark, TRADER, DBA DEVELOPER - 08/10/2022 2:15 PM CDT ADMISSION HISTORY AND PHYSICAL [facility] Hospitalist Service Alec Clements [address] [facility] [id number] 72 year old male Admission Date/ Time: 08/10/2022 9:14 AM Primary Care Provider: Donnell Hou MD Subjective Chief Complaint: Fall, confusion HPI: Alec Clements is a 72 year old male with PMH of HTN and HLD who presented to ED on 08/10/22 after a suspected fall sustained at home. History obtained from chart review, ED report, at bedside, and patient. Patient does not remember some of the events of the morning and a fall was not witnessed by /family. Patient reportedly awoke at 7AM, remembered waking up and doing normal activities, subsequently taking the dog outside which, per his report, went fine. When he returned from walking the dog in the back yard he went downstairs to change his clothes. His clothing was wet from unclear reason (did not seem like urination, only the backs of his shirt and pants were wet). He then returned upstairs and appeared pale to his . She felt he was confused, slower to answer questions than normal, she also noted injury onback of his head with abrasion, swelling, and 'goose egg'. She drove him to the ER. Patient and just returned to [place] from wintering in [place] 3 days prior, had not shoveled at home yet and endorses it being very slippery at home. In ED he endorsed mild headache, denied pain elsewhere. No nausea or vomiting. In the ED he was hemodynamically stable. He was confused as to why his head seemed to be injured as he did not recall any fall. CT head obtained showing temporal subarachnoid blood looking traumatic (countrecoup). ED provider discussed case with Dr. Gonzalez from Trauma. Recommended admission overnight and repeat head CT in AM. Specialist was comfortable admitting locally in [place], as was also the strong preference of the patient/. On assessment, patient patient continues to be amnesic to the events after going outside with the dog and does not recall changing his clothes or the events after returning inside. He endorses mild headache. Denies nausea or vomiting. Denies loss of bowel or bladder, denies shortness of breath nor cough, denies chest pain or palpitations. Denies vision changes. Some arthritis pains generalized, especially to right hip for which he takes and OTC supplement for. No sore throat. No abnormal muscle/aches/joint pains apart from arthritis pains baseline. Review of Systems Pertinent items are noted above. Assessment/Plan Subarachnoid bleed (HCC) Concussion Suspected mechanical fall ?? Input from Trauma service appreciated ?? Repeat head CT in AM (ordered) ?? AM provider to review imaging with trauma surgeon via telephone tomorrow ?? Hold [employer]GE aspirin 81 mg PO daily for now, inquire with trauma service any insight on when OK to resume (if even necessary). ?? Tele x 24 hours ?? BP control as below ?? Frequent Neuro checks ordered - if any significant change would recommended urgent repeat head CT ?? Tylenol PRN for FONG ?? HOB 30 degrees ?? If any changes in neuro status, would recommend reconsider urgent transfer to [facility]. ?? Based on assessment today likely not necessary for PT/OT/BEHAVIORAL HEALTH CARE COORDINATOR at this time Essential hypertension ?? Continue [employer]GE olmesartan-hydrochlorothiazide 40/12.5 mg PO daily (patient unsure if he took this in AM or not. Will resume tomorrow AM and manage BP with PRN hydralazine in interm) - pharmacy changed to formulary ?? Continue [employer]GE amlodipine 5 mg PO daily - takes at HS ?? PRN Hydralazine: 10 mg IV q 4 hours PRN SBP >140 Mixed hyperlipidemia ?? Note on meds DVT Prophylaxis Measures: Active anticoagulants: Transfer / Discharge plans: Admit to obs. Possible home tomorrow if CT/neuro status stable Expected Discharge Date: Code Status & Serious Illness Conversations (ACP Navigator): Full Code Family Communications: Primary Emergency Contact: ShortyyoelCharlotte burnhamy, , [place] Additional History History (edit) Past Medical History: Diagnosis Date ??? Other and unspecified hyperlipidemia 06/03/2004 Hx of dyslipidemia ??? Unspecified essential hypertension 06/03/2004 Past Surgical History: Procedure Laterality Date ??? COLONOSCOPY,BIOPSY 06/25/[address] [facility] [address] denson--tubular adenoma Family History Problem Relation Age of Onset ??? Diabetes Mother ??? Diabetes Father ??? No Known Problems Sister ??? No Known Problems Brother ??? Diabetes Sister ??? Hypertension Sister ??? No Known Problems Sister ??? Cancer Negative Family Hx ??? Cardiovascular Disease Negative Family Hx Family history reviewed as noted above Social History Socioeconomic History ??? Marital status: Spouse name: Bonnie ??? Number of children: 2 Occupational History [employer]er: [employer] Tobacco Use ??? Smoking status: Never ??? Smokeless tobacco: Former Types: Chew ??? Tobacco comments: quit approx 1 year ago Vaping Use ??? Vaping Use: Never used Substance and Sexual Activity ??? Alcohol use: Yes Comment: 2-3 drinks monthly ??? Drug use: No Social Determinants of Health Financial Resource Strain: Low Risk ??? Difficulty of Paying Living Expenses: Not hard at all Food Insecurity: No Food Insecurity ??? Worried About Running Out of Food in the Last Year: Never true ??? Ran Out of Food in the Last Year: Never true Transportation Needs: No Transportation Needs ??? Lack of Transportation (Medical): No ??? Lack of Transportation (Non-Medical): No Prior to Admission Medications Prescriptions Last Dose Informant Patient Reported? Taking? amLODIPine (Norvasc) 5 MG tablet 08/09/2022 at 1999 No Yes Sig: Take 1 Tablet by mouth one time a day. IN THE EVENING amLODIPine (Norvasc) 5 MG tablet 08/09/2022 at 1999 No Yes Sig: Take 1 Tablet by mouth one time a day. IN THE EVENING aspirin EC 81 MG tablet 08/10/2022 at am Patient Yes Yes Sig: Take 1 Tab by mouth one time a day. Do not split or crush. fluorouracil (Efudex) 5 % cream No No Sig: Apply topically two times a day. To scalp, ears and christianity regions for 3 weeks as instructed Patient not taking: Reported on 11/01/2021 olmesartan-hydroCHLOROthiazide (Benicar HCT) 40-12.5 MG oral tablet 08/10/2022 at am No Yes Sig: TAKE 1 TABLET DAILY triamcinolone acetonide (Kenalog) 0.1 % cream Patient No No Sig: Apply topically two times a day. Patient not taking: Reported on 02/03/2022 Facility-Administered Medications: None Allergies/Sensitivities: No Known Allergies Objective Vitals T: 36.8 ??C (98.3 ??F) BP: (!) 171/81 HR: 69 RR: 16 SpO2: 97 % Weights: BMI: Admit Wt: (Graphs) Chart Review ICU Labs Micro Rad AntiCoag Mar(Hx) Glu / DM I/O Graph I/O (BM) Pain Blood Home Meds PDMP Lab/Path Telemetry: Cardiac Rhythm: Sinus Rhythm All lines/tubes etc other than PIV's: Physical Exam General Appearance: Calm, alert, no acute distress, non-toxic appearing CV: regular rate and rhythm, no murmur detected, no peripheral edema noted Resp: lungs clear to auscultation bilaterally, on room air, adequate depth and rate, no respiratorydistress. GI/ABD: abd soft, non-tender, non-distended Skin: warm and dry. Area of ecchymosis posterior/left scalp with some bruising, raised area but notopen and no active bleeding MSK: moves all extremities in bed, no restricted AROM nor PROM Neuro: Awake, alert, oriented to person, place, time, mildly to situation. Strength and sensation normal and symmetrical BUE and BLE. No drift to extremities. 5/5 strength BUE/BLLE. Speech clear, no facial droop, tongue midline. No ataxia noted. Psych: calm and cooperative. Diagnostics: Recent Results (from the past 24 hour(s)) BASIC METABOLIC PANEL Result Value Ref Range Sodium 138 134 - 143 mEq/L Potassium 3.9 3.4 - 5.1 mEq/L Chloride 104 99 - 110 mEq/L Carbon Dioxide 24 19 - 29 mEq/L Anion Gap 10.0 3.0 - 15.0 mEq/L Blood Urea Nitrogen 19 5 - 24 mg/dL Creatinine 1.06 0.70 - 1.20 mg/dL Glomerular Filtration Rate 74 >60 mL/min/1.73 m*2 Calcium 9.5 8.4 - 10.5 mg/dL Glucose 135 (H) 70 - 99 mg/dL Narrative Current ADA criteria for Glucose: Normal: 70-99 mg/dL Impaired Fasting Glucose: 100-125 mg/dL Diabetes Mellitus: at or above 126 mg/dL The diagnosis of diabetes must be confirmed on a subsequent day by measuring Fasting Plasma Glucose, 2-hr PG or random plasma glucose (if symptoms are present). APTT Result Value Ref Range APTT 24 23 - 33 sec PROTIME Result Value Ref Range INR 1.0 0.9 - 1.1 Protime 13.2 12.0 - 14.1 sec Narrative Suggested therapeutic INR ranges for oral anticoagulant therapy: Category INR Value Prophylaxis 2.0-3.0 Treat Thrombosis or Embolism 2.0-3.0 Prosthetic Heart Valve 2.5-3.5 HEMOGRAM/DIFFERENTIAL Result Value Ref Range WBC 7.1 3.2 - 11.0 10*9/L RBC 4.81 4.14 - 5.76 10*12/L HGB 14.2 12.9 - 16.9 g/dL HCT 41.8 38.4 - 49.7 % MCV 86.9 81.4 - 99.0 fL MCH 29.5 26.7 - 33.1 pg MCHC 34.0 31.6 - 35.5 g/dL RDW 13.5 11.3 - 14.6 % PLT 244 130 - 375 10*9/L Neutrophils % 58.2 % Lymphocytes % 26.5 % Monocytes % 10.4 % Eosinophils % 3.9 % Basophils % 0.4 % Immature Granulocytes % 0.6 % Neutrophils Absolute 4.1 1.5 - 7.6 10*9/L Lymphocytes Absolute 1.9 0.8 - 3.3 10*9/L Monocytes Absolute 0.7 0.2 - 0.9 10*9/L Eosinophils Absolute 0.3 0.0 - 0.4 10*9/L Basophils Absolute 0.0 0.0 - 0.1 10*9/L Immature Granulocytes Absolute 0.04 0.00 - 0.06 10*9/L ALCOHOL Result Value Ref Range Alcohol <10.0 <=10.0 mg/dL Imaging: Results for orders placed or performed during the hospital encounter of 08/10/[address] HEAD WO IV CONTRAST Narrative This document is currently in Preliminary Status Exam CT HEAD WO IV CONTRAST HISTORY: Head trauma, minor (Age >= 65y); COMPARISON: None. FINDINGS: Normal ventricular size. No midline shift. Increased density at the base of the right temporal lobe. This appears to represent a small amount of subarachnoid blood. Basal cisterns appear patent. No parenchymal hematoma. Left posterior extracranial soft tissue injury. No acute fracture. Clear mastoid air cells and visualized portions of paranasal sinuses. IMPRESSION: 1. Left posterior extracranial soft tissue injury. No acute fracture 2. Small amount of subarachnoid blood in the region of the right temporal lobe. Dictated By: Jolene Lewis MD 08/10/2022 10:47 AM Edited By: ANNA 08/10/2022 11:[address] CERVICAL SPINE WO IV CONTRAST Narrative This document is currently in Preliminary Status Exam CT CERVICAL SPINE WO IV CONTRAST HISTORY: Neck trauma (Age >= 65y); COMPARISON: None. FINDINGS: Straightening of normal cervical lordosis. Alignment and positioning otherwise normal. Diffuse disc space narrowing and hypertrophy. Diffuse facet arthropathy. Prominent anterior hypertrophic spurs. No acute bony abnormality. IMPRESSION: Degenerative change is present. No acute bony abnormality. Dictated By: Jolene Lewis MD 08/10/2022 10:49 AM Edited By: ANNA 08/10/2022 11:00 AM 3. XR CHEST 1 VIEW Narrative This document is currently in Preliminary Status Exam XR CHEST 1 VIEW HISTORY: fall, landed on back apparently; NOTE: Will this exam be read by [facility]?->No COMPARISON: None. FINDINGS: Normal heart size and vascularity. Clear lungs. No pneumothorax. Advanced arthritic change of the shoulders. Multiple EKG leads overlie the chest. Dictated By: Jolene Lewis MD 08/10/2022 10:43 AM Edited By: ANNA 08/10/2022 10:44 AM The following imaging was reviewed EKG EKG personally reviewed. No ischemic changes noted Ezra Clark APRN, VERA Patient was evaluated today in collaboration with: Donte Lobato MBBS Associated attestation - Donte Lobato MBBS - 08/10/2022 4:15 PM CDT Telemed Patient (Rural) Site Documentation: Telehealth visit conducted by interactive and video conference with patient located at [place], [place] by provider Dr. Lobato from [facility] - Hospitalist located, [place], [place] on 08/10/2022. Pt d/w Ezra Clark CNP. Please see his note for details. Agree with his assessment and plan. JOHNATHON Urias documented in this encounter ED Notes * Nguyen Schaefer RN - 08/10/2022 12:24 PM CDT Pt transferred to room 651 for observation stay * Nahun Seth MD - 08/10/2022 9:23 AM CDT Images from the original note were not included. Emergency Medicine Note - Nahun Seth MD - [facility] PCP: Donnell Hou MD CC: Goose egg on head, confusion Time of injury: dog walk was about 8a (so apparently 1.5 hours ago). HPI: 72yoM, PMH sig for htn, hld - usually healthy. On baby ASA but no other blood thinners. Was fine yesterday, went out to supper w family last night, no head injury at that point (he doesn't have much hair so somebody would have noticed if he had head injury). He remembers that he got up 7a this morning just like normal. Remembers that he fed the dog, ate grits for breakfast, worked on the hipixle a bit, then took the dog outside, which went fine he thinks (he does not recall any fall). However when he got back from walking the dog in the back yard he first went downstairs to change clothes (they were wet - unclear reason why - both shirt & pants, back of them (did not seem like he urinated)), then went back upstairs where he looked pale to -she asked if he was ok because he seemed kind of blank and then noticed he was confused, slower to answer questions than usual. (Gets year wrong when we ask, but knows it's Easter). Then noticed apparent injury on back of head - abrasion with soft tissue swelling goose egg on back of head.She drove him here. He has mild headache but denies pain elsewhere. No nausea. No hx syncope or seizure previously. It is very slippery outside today. Got back to [place] from [place] after winter there 3 days ago. Not shoveled out yet at home. Gets year wrong. Says 2002 then twenty o three when I ask again and tell him to think hard. Knows date & knows it's Easter. Knows president, knows some current events. Embarrassed that he was20 years off with the date. Does not recall if he had morning meds. No pain in chest, abdomen, back, arms, legs, or neck. Nurse triage note reviewed: Pt took the dog out, not sure what happened after that but now has a bruise on the back of his head, does not remember falling, doesn't remember hitting his head, and is having difficulty recalling certain activities. Spouse reports he went downstairs to change shirt, does not remember doing that and when asked he said he changed it because it was wet and he doesn't know how it got wet ROS: Please see above. Aside from this, a 10-point review of systems was conducted and was negative except as stated. I have personally reviewed the PMH, Meds, Allergies, SH, and FH, including: PMH: Past Medical History: Diagnosis Date ??? Other and unspecified hyperlipidemia 06/03/2004 Hx of dyslipidemia ??? Unspecified essential hypertension 06/03/2004 Meds: No current facility-administered medications for this encounter. Current Outpatient Medications Medication Sig ??? amLODIPine (Norvasc) 5 MG tablet Take 1 Tablet by mouth one time a day. IN THE EVENING ??? olmesartan-hydroCHLOROthiazide (Benicar HCT) 40-12.5 MG oral tablet TAKE 1 TABLET DAILY ??? amLODIPine (Norvasc) 5 MG tablet Take 1 Tablet by mouth one time a day. IN THE EVENING ??? fluorouracil (Efudex) 5 % cream Apply topically two times a day. To scalp, ears and christianity regions for 3 weeks as instructed (Patient not taking: Reported on 11/01/2021) ??? triamcinolone acetonide (Kenalog) 0.1 % cream Apply topically two times a day. (Patient not taking: Reported on 02/03/2022) ??? aspirin EC 81 MG tablet Take 1 Tab by mouth one time a day. Do not split or crush. Allergies: No Known Allergies SH: Lives w Just back to town a few days ago after winter in [place]. Have not plowed out driveway yet. Couple beers last night, not most days No drugs PHYSICAL EXAM: Blood pressure 136/80, pulse 87, temperature 97.8 ??F (36.6 ??C), temperature source Oral, resp. rate 16, SpO2 95 %. Primary Survey: - Airway intact (talking) - Breathing: intact (breath sounds symmetrical) - Circulation: intact (radial pulses palpable & symmetrical) - Disability: GCS 15. Able to wiggle fingers and toes - Vitals: HD stable (see trauma sheet for full details) Secondary survey: - Head: Abrasion with soft tissue swelling L occipital head. No bleeding. - Eyes: PERRLA, EOMI, pupils 3mm reactive symmetrical - Ears: no hemotympanum - Face: nontender, no midface instability - OP: No intra-oral injuries - Neck: placed into cervical collar. No obvious tenderness or stepoffs. No JVD. - Chest wall: nontender - Lungs: symmetrical, clear - Abd: soft, NT, ND - Pelvis: stable to compression - Back: nontender wtihout stepoffs. No evidence of trauma. - Extremities: WWP. Strength & sensation normal & symmetrical in B UEs & B LEs. - Neuro: GCS 15. AAOx3. Confused to year (I give him 2 tries; he's 20 years off) but knows day & date & the fact it's Easter. AAOx3. CN 2-12 intact. Strength & sensation normal & symmetrical in bilateral upper extermities and bilateral lower extremities. No dysarthria. No facial droop. No pronator drift. Ambulatory without ataxia including on heels and on toes. EMERGENCY DEPARTMENT DATA (I have personally reviewed & interpreted this data. I have personally reviewed all of today's ED images & agree with radiology interpretation unless otherwise specified): EKG (read by me 10:07): NSR, rate 81, axis ok, intervals ok, no acute ischemia. Tele: No events Results for orders placed or performed during the hospital encounter of 08/10/[address] HEAD WO IV CONTRAST Narrative This document is currently in Preliminary Status Exam CT HEAD WO IV CONTRAST HISTORY: Head trauma, minor (Age >= 65y); COMPARISON: None. FINDINGS: Normal ventricular size. No midline shift. Increased density at the base of the right temporal lobe. This appears to represent a small amount of subarachnoid blood. Basal cisterns appear patent. No parenchymal hematoma. Left posterior extracranial soft tissue injury. No acute fracture. Clear mastoid air cells and visualized portions of paranasal sinuses. IMPRESSION: 1. Left posterior extracranial soft tissue injury. No acute fracture 2. Small amount of subarachnoid blood in the region of the right temporal lobe. Dictated By: Jolene Lewis MD 08/10/2022 10:47 AM Edited By: ANNA 08/10/2022 11:[address] CERVICAL SPINE WO IV CONTRAST Narrative This document is currently in Preliminary Status Exam CT CERVICAL SPINE WO IV CONTRAST HISTORY: Neck trauma (Age >= 65y); COMPARISON: None. FINDINGS: Straightening of normal cervical lordosis. Alignment and positioning otherwise normal. Diffuse disc space narrowing and hypertrophy. Diffuse facet arthropathy. Prominent anterior hypertrophic spurs. No acute bony abnormality. IMPRESSION: Degenerative change is present. No acute bony abnormality. Dictated By: Jolene Lewis MD 08/10/2022 10:49 AM Edited By: ANNA 08/10/2022 11:00 AM 3. XR CHEST 1 VIEW Narrative This document is currently in Preliminary Status Exam XR CHEST 1 VIEW HISTORY: fall, landed on back apparently; NOTE: Will this exam be read by [facility]?->No COMPARISON: None. FINDINGS: Normal heart size and vascularity. Clear lungs. No pneumothorax. Advanced arthritic change of the shoulders. Multiple EKG leads overlie the chest. Dictated By: Jolene Lewis MD 08/10/2022 10:43 AM Edited By: ANNA 08/10/2022 10:44 AM Recent Results (from the past 72 hour(s)) BASIC METABOLIC PANEL Result Value Ref Range Sodium 138 134 - 143 mEq/L Potassium 3.9 3.4 - 5.1 mEq/L Chloride 104 99 - 110 mEq/L Carbon Dioxide 24 19 - 29 mEq/L Anion Gap 10.0 3.0 - 15.0 mEq/L Blood Urea Nitrogen 19 5 - 24 mg/dL Creatinine 1.06 0.70 - 1.20 mg/dL Glomerular Filtration Rate 74 >60 mL/min/1.73 m*2 Calcium 9.5 8.4 - 10.5 mg/dL Glucose 135 (H) 70 - 99 mg/dL Narrative Current ADA criteria for Glucose: Normal: 70-99 mg/dL Impaired Fasting Glucose: 100-125 mg/dL Diabetes Mellitus: at or above 126 mg/dL The diagnosis of diabetes must be confirmed on a subsequent day by measuring Fasting Plasma Glucose, 2-hr PG or random plasma glucose (if symptoms are present). APTT Result Value Ref Range APTT 24 23 - 33 sec PROTIME Result Value Ref Range INR 1.0 0.9 - 1.1 Protime 13.2 12.0 - 14.1 sec Narrative Suggested therapeutic INR ranges for oral anticoagulant therapy: Category INR Value Prophylaxis 2.0-3.0 Treat Thrombosis or Embolism 2.0-3.0 Prosthetic Heart Valve 2.5-3.5 HEMOGRAM/DIFFERENTIAL Result Value Ref Range WBC 7.1 3.2 - 11.0 10*9/L RBC 4.81 4.14 - 5.76 10*12/L HGB 14.2 12.9 - 16.9 g/dL HCT 41.8 38.4 - 49.7 % MCV 86.9 81.4 - 99.0 fL MCH 29.5 26.7 - 33.1 pg MCHC 34.0 31.6 - 35.5 g/dL RDW 13.5 11.3 - 14.6 % PLT 244 130 - 375 10*9/L Neutrophils % 58.2 % Lymphocytes % 26.5 % Monocytes % 10.4 % Eosinophils % 3.9 % Basophils % 0.4 % Immature Granulocytes % 0.6 % Neutrophils Absolute 4.1 1.5 - 7.6 10*9/L Lymphocytes Absolute 1.9 0.8 - 3.3 10*9/L Monocytes Absolute 0.7 0.2 - 0.9 10*9/L Eosinophils Absolute 0.3 0.0 - 0.4 10*9/L Basophils Absolute 0.0 0.0 - 0.1 10*9/L Immature Granulocytes Absolute 0.04 0.00 - 0.06 10*9/L ALCOHOL Result Value Ref Range Alcohol <10.0 <=10.0 mg/dL EMERGENCY DEPARTMENT COURSE: I personally reviewed nurses' notes and vital signs. Meds administered: - He declines pain / nausea meds. Serial repeat evaluations (q20 min at least during my care): - HD stable - Neuro stable (vs improving slightly). He is confused why his head seems to have an injury on it, does not recall fall, but does now know year as well as date - Hungry, looking forward to Easter dinner. Communications: - Radiology Dr. Lewis: temporal subarachnoid blood looks traumatic (contrecoup) - Discussed with trauma Dr. Gonzalez twice. She recommends admission overnight with head CT in am - she is comfortable with admission here in [place] vs transfer to [place] for this, at his choice but admission in [place] seems preferable to her as long as he's comfortable with this. After I discuss with Mr. Clements and his , they have strong preference for admission here in [place] as well. is very supportive of admission here in [place] as well when we talk again. Dr. Gonzalez understands that Mr. Clements is amnestic to the event (and that he is a little upset about not remembering), has mild concussive sxs (wrong on year, a little verbally upset about not understanding his head injury is traumatic). She recommends that there is no need to talk with neurosurgery, no need for seizure prophylaxis, no need for PT/OT/speech. - Discussed with [facility] hospitalist team Dr. Lobato & Ezra Clark - will admit here MEDICAL DECISION MAKING: Alec Clements is a(n) 72 year old who comes in with abrasion/soft tissue swelling on head that apparently occurred as the result of a fall (although he is amnestic to fallitself). I think slip on ice seems much more likely than syncope or seizure give history. On baby ASA but no other blood thinners. Does have very small subarachnoid blood on head CT; trauma workup oth erwise reassuring. Discussed options with trauma surgeon (who supports admit here in [place]) as well as patient and (who are adamantly happy to be admitted here rather than transferred to [place]). IMPRESSION: (S09.90XA) Injury of head, initial encounter (primary encounter diagnosis) (S06.6XAA) Subarachnoid hematoma, with unknown loss of consciousness status, initial encounter (HCC) (S00.03XA) Contusion of scalp, initial encounter Apparent slip on ice - he is amnestic to this apparent fall PLAN: Admit here in [place]. Repeat CT head without contrast in AM Trauma will leave notes and will be involved remotely. Mr. Clements & his understand that if he worsens we would likely recommend transfer to [place]. Critical care time: 120 minutes in time spent with patient on serial reassessments, time spent discussing with consultants & reviewing chart. Nahun Seth MD 08/10/22 [id number] * Nguyen Schaefer, LEON - 08/10/2022 9:19 AM CDT Pt took the dog out, not sure what happened after that but now has a bruise on the back of his head, does not remember falling, doesn't remember hitting his head, and is having difficulty recalling certain activities. Spouse reports he went downstairs to change shirt, does not remember doing that and when asked he said he changed it because it was wet and he doesn't know how it got wet documented in this encounter Miscellaneous Notes * Care Plan - Halle Blancas RN - 08/10/2022 2:43 PM CDT Problem: Neurologic Goal: Neurological system functioning within defined limits Outcome: Progressing Flowsheets (Taken 08/10/20221438) Neurological Care Plan: Monitor temperature, glucose, and sodium. Initiate appropriate interventions as ordered Assess for and report changes in neurological status Problem: Discharge Planning Goal: No barriers to discharge Outcome: Progressing Flowsheets (Taken 08/10/20221438) Discharge Planning Care Plan: Identify discharge barriers Problem: HEENT Goal: HEENT system functioning within defined limits Outcome: Progressing Flowsheets (Taken 08/10/2022 1314 by Nguyen Schaefer, RN) HEENT Care Plan: Oral cares Encourage fluid intake/maintain hydration Problem: Skin Goal: Skin integrity within defined limits Outcome: Progressing Flowsheets (Taken 08/10/2022 143) Skin Integrity Care Plan: Ongoing surveillance of impaired skin Problem: Fall Risk Goal: Absence of falls Outcome: Progressing Flowsheets (Taken 08/10/20221438) Fall Risk Care Plan/Interventions: Collaboration with PT/OT Mobilize patient Problem: Risk of Venous Thromboembolism Goal: Absence of venous thromboembolism Outcome: Progressing Flowsheets (Taken 08/10/2022 143) VTE Interventions: Early ambulation promotion Problem: Thrombolytic Complications Goal: Absence of impaired coagulation and angioedema signs and symptoms Outcome: Progressing Flowsheets (Taken 08/10/2022 1439) Coagulation Interventions: Impaired coagulation signs and symptoms assessment Vital signs assessment Observation Problem: Risk of Aspiration Goal: Absence of signs and symptoms of aspiration Outcome: Progressing Problem: Impaired Verbal Communication Goal: Maximize ability to communicate wants and needs Outcome: Met documented in this encounter Plan of Treatment Scheduled Referrals Name Type Priority Associated Diagnoses Orde r Schedule IP DISCHARGE FOLLOW-UP APPOINTMENTS REFERRAL Routine Hospital discharge follow-up Ordered: 08/11/2022 documented as of this encounter Procedures Procedure Name Priority Date/Time Associated Diagnosis Comments CT HEAD WO IV CONTRAST Routine 08/11/2022 8:12 AM CDT Injury of head, initial encounter CT CERVICAL SPINE WO IV CONTRAST STAT 08/10/2022 10:44 AM CDT Injury of head, initial encounter CT HEAD WO IV CONTRAST STAT 08/10/2022 10:44 AM CDT Injury of head, initial encounter XR CHEST 1 VIEW STAT 08/10/2022 10:40 AM CDT Injury of head, initial encounter EKG 12-LEAD STAT 08/10/2022 9:49 AM CDT HOLD SERUM TUBE STAT 08/10/2022 9:48 AM CDT BASIC METABOLIC PANEL STAT 08/10/2022 9:48 AM CDT HEMOGRAM/DIFF STAT 08/10/2022 9:48 AM CDT PROTIME STAT 08/10/2022 9:48 AM CDT APTT STAT 08/10/2022 9:48 AM CDT ALCOHOL STAT 08/10/2022 9:48 AM CDT documented in this encounter Results * CT HEAD WO IV CONTRAST (08/11/2022 8:12 AM CDT) Anatomical Region Laterality Modality Head Computed Tomogra phy 08/11/2022 8:12 AM CDT Narrative 08/14/2022 9:14 AM CDT This document is currently in Final Status Exam CT HEAD WO IV CONTRAST INDICATION: Subarachnoid hemorrhage (SAH), follow up. TECHNIQUE: Routine CT of the brain was performed without contrast. FINDINGS: Comparison made with 08/10/2022. Calvarium is intact. Scalp contusion posterior left parietal frontal region is seen. Previously seen subarachnoid blood along the posterior right temporal lobe is similar to smaller in size. May be a small component of subdural hemorrhage as well, series 4, image 39. No mass effect or midline shift. No parenchymal hemorrhage. IMPRESSION: Stable to decreasing subarachnoid hemorrhage along the right temporal lobe. May be a small component of subdural hemorrhage along the temporal lobe on the right as well. Dictated By: Nathan Yeboah MD 08/11/2022 8:29 AM Edited By: MAICO 08/11/2022 9:09 AM Electronically Signed: Nathan Yeboah MD 08/14/2022 9:14 AM Procedure Note Nathan Yeboah MD - 08/14/2022 This document is currently in Final Status Exam CT HEAD WO IV CONTRAST INDICATION: Subarachnoid hemorrhage (SAH), follow up. TECHNIQUE: Routine CT of the brain was performed without contrast. FINDINGS: Comparison made with 08/10/2022. Calvarium is intact. Scalpcontusion posterior left parietal frontal region is seen. Previously seensubarachnoid blood along the posterior right temporal lobe is similar tosmaller in size. May be a small component of subdural hemorrhage as well,series 4, image 39. No mass effect or midline shift. No parenchymalhemorrhage. IMPRESSION: Stable to decreasing subarachnoid hemorrhage along the righttemporal lobe. May be a small component of subdural hemorrhage along thetemporal lobe on the right as well. Dictated By: Nathan Yeboah MD 08/11/2022 8:29 AM Edited By: MAICO 08/11/2022 9:09 AM Electronically Signed: Nathan Yeboah MD 08/14/2022 9:14 AM Ezra Clark APRN, DBA DEVELOPER EC CT ORDERABLES * CT CERVICAL SPINE WO IV CONTRAST (08/10/2022 10:44 AM CDT) Anatomical Region Laterality Modality C-Spine, Spine Computed Tomogra phy 08/10/2022 10:4 4 AM CDT Narrative 08/12/2022 1:34 PM CDT This document is currently in Final Status Exam CT CERVICAL SPINE WO IV CONTRAST HISTORY: Neck trauma (Age >= 65y); ?? COMPARISON: None. FINDINGS: Straightening of normal cervical lordosis. Alignment and positioning otherwise normal. Diffuse disc space narrowing and hypertrophy. Diffuse facet arthropathy. Prominent anterior hypertrophic spurs. No acute bony abnormality. IMPRESSION: Degenerative change is present. No acute bony abnormality. Dictated By: Jolene Lewis MD 08/10/2022 10:49 AM Edited By: ANNA 08/10/2022 11:00 AM Electronically Signed: Jolene Lewis MD 08/12/2022 1:34 PM Procedure Note Jolene Lewis MD - 08/12/2022 This document is currently in Final Status Exam CT CERVICAL SPINE WO IV CONTRAST HISTORY: Neck trauma (Age >= 65y); COMPARISON: None. FINDINGS: Straightening of normal cervical lordosis. Alignment andpositioning otherwise normal. Diffuse disc space narrowing andhypertrophy. Diffuse facet arthropathy. Prominent anterior hypertrophicspurs. No acute bony abnormality. IMPRESSION: Degenerative change is present. No acute bony abnormality. Dictated By: Jolene Lewis MD 08/10/2022 10:49 AM Edited By: ANNA 08/10/2022 11:00 AM Electronically Signed: Jolene Lewis MD 08/12/2022 1:34 PM Nahun Seth MD EC CT ORDERABLES * CT HEAD WO IV CONTRAST (08/10/2022 10:44 AM CDT) Anatomical Region Laterality Modality Head Computed Tomogra phy 08/10/2022 10:4 4 AM CDT Narrative 08/12/2022 1:34 PM CDT This document is currently in Final Status Exam CT HEAD WO IV CONTRAST HISTORY: Head trauma, minor (Age >= 65y); ?? COMPARISON: None. FINDINGS: Normal ventricular size. No midline shift. Increased density at the base of the right temporal lobe. This appears to represent a small amount of subarachnoid blood. Basal cisterns appear patent. No parenchymal hematoma. Left posterior extracranial soft tissue injury. No acute fracture. Clear mastoid air cells and visualized portions of paranasal sinuses. IMPRESSION: 1. Left posterior extracranial soft tissue injury. No acute fracture 2. Small amount of subarachnoid blood in the region of the right temporal lobe. Dictated By: Jolene Lewis MD 08/10/2022 10:47 AM Edited By: ANNA 08/10/2022 11:00 AM Electronically Signed: Jolene Lewis MD 08/12/2022 1:34 PM Procedure Note Jolene Lewis MD - 08/12/2022 This document is currently in Final Status Exam CT HEAD WO IV CONTRAST HISTORY: Head trauma, minor (Age >= 65y); COMPARISON: None. FINDINGS: Normal ventricular size. No midline shift. Increased density at the base of the right temporal lobe. This appears torepresent a small amount of subarachnoid blood. Basal cisterns appear patent. No parenchymal hematoma. Left posterior extracranial soft tissue injury. No acute fracture. Clear mastoid air cells and visualized portions of paranasal sinuses. IMPRESSION: 1. Left posterior extracranial soft tissue injury. No acute fracture 2. Small amount of subarachnoid blood in the region of the right temporallobe. Dictated By: Jolene Lewis MD 08/10/2022 10:47 AM Edited By: ANNA 08/10/2022 11:00 AM Electronically Signed: Jolene Lewis MD 08/12/2022 1:34 PM Nahun Seth MD EC CT ORDERABLES * XR CHEST 1 VIEW (08/10/2022 10:40 AM CDT) Anatomical Region Laterality Modality Chest Radiographic Yani ging 08/10/2022 10:4 0 AM CDT Narrative 08/12/2022 1:34 PM CDT This document is currently in Final Status Exam XR CHEST 1 VIEW HISTORY: fall, landed on back apparently; ?NOTE: Will this exam be read by [facility]?->No COMPARISON: None. FINDINGS: Normal heart size and vascularity. Clear lungs. No pneumothorax. Advanced arthritic change of the shoulders. Multiple EKG leads overlie the chest. Dictated By: Jolene Lewis MD 08/10/2022 10:43 AM Edited By: ANNA 08/10/2022 10:44 AM Electronically Signed: Jolene Lewis MD 08/12/2022 1:34 PM Procedure Note Jolene Lewis MD - 08/12/2022 This document is currently in Final Status Exam XR CHEST 1 VIEW HISTORY: fall, landed on back apparently; NOTE: Will this exam be readby [facility]?->No COMPARISON: None. FINDINGS: Normal heart size and vascularity. Clear lungs. Nopneumothorax. Advanced arthritic change of the shoulders. Multiple EKG leads overlie the chest. Dictated By: Jolene Lewis MD 08/10/2022 10:43 AM Edited By: ANNA 08/10/2022 10:44 AM Electronically Signed: Jolene Lewis MD 08/12/2022 1:34 PM Nahun Seth MD EC DIAGNOSTIC IMAGI NG ORDERABLES * EKG 12-LEAD (08/10/2022 9:49 AM CDT) Ventricular Rate 81 BPM MUSE Atrial Rate 81 BPM MUSE P-R Interval 150 ms MUSE QRS Duration 88 ms MUSE QT 386 ms MUSE QTc 448 ms MUSE P [place] 38 degrees MUSE R [place] 7 degrees MUSE T [place] 19 degrees MUSE 08/10/2022 9:49 AM CDT Narrative MUSE - 08/11/2022 8:53 AM CDT Confirming Doc JOLENE ROSAS MD Normal sinus rhythm Normal ECG When compared with ECG of 25-JUN-2012 10:29, Fusion complexes are no longer Present Vent. rate has increased BY ??33 BPM Procedure Note Jolene Rosas MD - 08/11/2022 Confirming Doc JOLENE ROSAS MD Normal sinus rhythm Normal ECG When compared with ECG of 25-JUN-2012 10:29, Fusion complexes are no longer Present Vent. rate has increased BY 33 BPM Nahun Seth MD IP ECG ORDERABLES MUSE * ALCOHOL (08/10/2022 9:48 AM CDT) Pathologist [facility] Alcohol <10.0 <=10.0 mg/dL 08/10/2022 10:04 AM CDT [facility] Blood BLOOD SPECIMEN / Unknown Venipuncture / Unknown 08/10/2022 9:48 AM CDT 08/10/2022 9:48 AM CDT Nahun Seth MD EC CHEMISTRY ORDERA BLES [facility] [address] * HEMOGRAM/DIFFERENTIAL (08/10/2022 9:48 AM CDT) Pathologist [facility] WBC 7.1 3.2 - 11.0 10*9/L 08/10/2022 9:51 AM CDT [facility] RBC 4.81 4.14 - 5.76 10*12/L 08/10/2022 9:51 AM CDT [facility] HGB 14.2 12.9 - 16.9 g/dL 08/10/2022 9:51 AM CDT [facility] HCT 41.8 38.4 - 49.7 % 08/10/2022 9:51 AM CDT [facility] MCV 86.9 81.4 - 99.0 fL 08/10/2022 9:51 AM CDT [facility] MCH 29.5 26.7 - 33.1 pg 08/10/2022 9:51 AM CDT [facility] MCHC 34.0 31.6 - 35.5 g/dL 08/10/2022 9:51 AM CDT [facility] RDW 13.5 11.3 - 14.6 % 08/10/2022 9:51 AM CDT [facility] PLT 244 130 - 375 10*9/L 08/10/2022 9:51 AM CDT [facility] Neutrophils % 58.2 % 08/10/2022 9:51 AM CDT [facility] Lymphocytes % 26.5 % 08/10/2022 9:51 AM CDT [facility] Monocytes % 10.4 % 08/10/2022 9:51 AM CDT [facility] Eosinophils % 3.9 % 08/10/2022 9:51 AM CDT [facility] Basophils % 0.4 % 08/10/2022 9:51 AM CDT [facility] Immature Granulocytes % 0.6 % 08/10/2022 9:51 AM CDT [facility] Neutrophils Absolute 4.1 1.5 - 7.6 10*9/L 08/10/2022 9:51 AM CDT [facility] Lymphocytes Absolute 1.9 0.8 - 3.3 10*9/L 08/10/2022 9:51 AM CDT [facility] Monocytes Absolute 0.7 0.2 - 0.9 10*9/L 08/10/2022 9:51 AM CDT [facility] Eosinophils Absolute 0.3 0.0 - 0.4 10*9/L 08/10/2022 9:51 AM CDT [facility] Basophils Absolute 0.0 0.0 - 0.1 10*9/L 08/10/2022 9:51 AM CDT [facility] Immature Granulocytes Absolute 0.04 0.00 - 0.06 10*9/L 08/10/2022 9:51 AM CDT [facility] Blood BLOOD SPECIMEN / Unknown Venipuncture / Unknown 08/10/2022 9:48 AM CDT 08/10/2022 9:48 AM CDT Nahun Seth MD EC HEMATOLOGY ORDER DARIAN [facility] [address] [place] [id number] * HOLD SERUM TUBE (08/10/2022 9:48 AM CDT) Blood BLOOD SPECIMEN / Unknown Venipuncture / Unknown 08/10/2022 9:48 AM CDT 08/10/2022 9:48 AM CDT Nahun Seth MD EC CHEMISTRY ORDERA BLES Performing Organization Address [facility] de Phone Number [address] * PROTIME (08/10/2022 9:48 AM CDT) INR 1.0 0.9 - 1.1 08/10/2022 10:15 AM CDT [facility] Protime 13.2 12.0 - 14.1 sec 08/10/2022 10:15 AM CDT [facility] Blood BLOOD SPECIMEN / Unknown Venipuncture / Unknown 08/10/2022 9:48 AM CDT 08/10/2022 9:48 AM CDT Narrative [facility] - 08/10/2022 10:15 AM CDT Suggested therapeutic INR ranges for oral anticoagulant therapy: Category ? INR Value Prophylaxis ?2.0-3.0 Treat Thrombosis or Embolism ? 2.0-3.0 Prosthetic Heart Valve ? 2.5-3.5 Nahun BRANDON HEMATOLOGY ORDER DARIAN Performing Organization Address [facility] de Phone Number [address] * APTT (08/10/2022 9:48 AM CDT) APTT 24 23 - 33 sec 08/10/2022 10:15 AM CDT [facility] Blood BLOOD SPECIMEN / Unknown Venipuncture / Unknown 08/10/2022 9:48 AM CDT 08/10/2022 9:48 AM CDT Nahun BRANDON HEMATOLOGY ORDER DARIAN Performing Organization Address City/[facility] de Phone Number [facility] [address] [place] [address], [facility] * (ABNORMAL) BASIC METABOLIC PANEL (08/10/2022 9:48 AM CDT) Sodium 138 134 - 143 mEq/L 08/10/2022 10:04 AM CDT [facility] Potassium 3.9 3.4 - 5.1 mEq/L 08/10/2022 10:04 AM CDT [facility] Chloride 104 99 - 110 mEq/L 08/10/2022 10:04 AM CDT [facility] Carbon Dioxide 24 19 - 29 mEq/L 08/10/2022 10:04 AM CDT [facility] Anion Gap 10.0 3.0 - 15.0 mEq/L 08/10/2022 10:04 AM CDT [facility] Blood Urea Nitrogen 19 5 - 24 mg/dL 08/10/2022 10:04 AM CDT [facility] Creatinine 1.06 0.70 - 1.20 mg/dL 08/10/2022 10:04 AM CDT [facility] Glomerular Filtration Rate 74 >60 mL/min/1. 73 m*2 08/10/2022 10:04 AM CDT [facility] Comment:Risk of cardiovascul ar disease increases when GFR is abnormal; persistently reduced GFR values are a specific indication of CKD. This calculation uses CKD- EPI 2020 equation without adjustment for race; it has not been validated in women. Calcium 9.5 8.4 - 10.5 mg/dL 08/10/2022 10:04 AM CDT [facility] Glucose 135(H) 70 - 99 mg/dL 08/10/2022 10:04 AM T [facility] Blood BLOOD SPECIMEN / Unknown Venipuncture / Unknown 08/10/2022 9:48 AM CDT 08/10/2022 9:48 AM CDT Narrative [facility] - 08/10/2022 10:04 AM CDT Current ADA criteria for Glucose: ?Normal: 70-99 mg/dL ?Impaired Fasting Glucose: 100-125 mg/dL ?Diabetes Mellitus: at or above 126 mg/dL The diagnosis of diabetes must be confirmed on a subsequent day by measuring Fasting Plasma Glucose, 2-hr PG or random plasma glucose (if symptoms are present). Nahun Seth MD EC CHEMISTRY ORDERFartun REYES [facility] Organization Address City/State/ZIP Co de Phone Number [facility] [address] [place] [address], [facility] documented in this encounter Visit Diagnoses Diagnosis Subarachnoid bleed (HCC)- Primary Subarachnoid hemorrhage Injury of head, initial encounter Subarachnoid hematoma, with unknown loss of consciousness status, initial encounter (HCC) Contusion of scalp, initial encounter Subarachnoid bleed (HCC) Subarachnoid hemorrhage Essential hypertension Unspecified essential hypertension Mixed hyperlipidemia Concussion Concussion, unspecified documented in this encounter Administered Medications Inactive Administered Medications Medication Order MAR Action Action Date Dose Rate Site acetaminophen (TYLENOL) tablet 650 mg 650 mg, Oral, EVERY 4 HOURS NEEDED, Starting on 08/10/22 at 1424, Until Thu08/11/22 at 1527, Mild Pain (1-3), Fever Given 08/11/2022 1:33 AM CDT 650 mg Given 08/10/2022 3:39 PM CDT 650 mg amLODIPine (Norvasc) tablet 5 mg 5 mg, Oral, AT BEDTIME, First dose on Thu08/10/22 at 2000, Until Discontinued Given 08/10/2022 7:20 PM CDT 5 mg hydrALAZINE (Apresoline) injection 10 mg 10 mg, IV Push, EVERY 4 HOURS NEEDED, Starting on 08/10/22 at 1424, Until Thu08/11/22 at 1012, Hypertension - enter BP threshold for administration in comments, For systolic blood pressure as defined in admin instructions Given 08/11/2022 7:52 AM CDT 10 mg Given 08/11/2022 2:39 AM CDT 10 mg Given 08/10/2022 3:40 PM CDT 10 mg hydroCHLOROthiazide (Hydrodiuril) tablet 12.5 mg 12.5 mg, Oral, ONCE DAILY, First dose on Thu08/11/22 at 0800, Until Discontinued Given 08/11/2022 7:53 AM CDT 12.5 mg losartan (Cozaar) tablet 100 mg 100 mg, Oral, ONCE DAILY, First dose on Thu08/11/22 at 0800, Until Discontinued Given 08/11/2022 7:53 AM CDT 100 mg ondansetron (Zofran ODT) disintegrating tablet 4 mg 4 mg, Oral, EVERY 6 HOURS NEEDED, Starting on 08/10/22 at 1424, Until 08/11/22 at 1527, Nausea, Vomiting ondansetron (Zofran) injection 4 mg 4 mg, IV Push, EVERY 6 HOURS NEEDED, Starting on 08/10/22 at 1424, Until 08/11/22 at 1527, Nausea, Vomiting sodium chloride 0.9% (NS) infusion 1,000 mL 1,000 mL, Intravenous, at 250 mL/hr, ONCE, 1 dose, On 08/10/22 at 0940 New Bag 08/10/2022 10:02 AM CDT 1,000 mL 250 mL/hr sodium chloride 0.9% IV FLUSH (NS) SYRINGE 3 mL 3 mL, IV Flush, EVERY 8 HOURS, First dose on 08/10/22 at 1500, Until Discontinued Given 08/11/2022 6:10 AM CDT 3 mL Given 08/10/2022 10:29 PM CDT 3 mL Given by Other 08/10/2022 4:18 PM CDT 3 mL documented in this encounter Discontinued Medications Medication Sig Discontinue Reason Start Date End Da te aspirin EC 81 MG tablet Take 1 Tab by mouth one time a day. Do not split or crush. Reorder 12/23/2016 08/11/2022 triamcinolone acetonide (Kenalog) 0.1 % cream Apply topically two times a day. Other 02/27/2021 08/11/2022 fluorouracil (Efudex) 5 % cream Apply topically two times a day. To scalp, ears and christianity regions for 3 weeks as instructed Other 10/17/2021 08/11/2022 amLODIPine (Norvasc) 5 MG tablet Take 1 Tablet by mouth one time a day. IN THE EVENING Other 06/26/2022 08/11/2022 documented as of this encounter Active and Recently Administered Medications Times are shown in CDT. Scheduled Medication Order 08/09/2022 08/10/2022 08/11/2022 amLODIPine (Norvasc) tablet 5 mg 5 mg, Oral, AT BEDTIME, First dose on 08/10/22 at 2000, Until Discontinued 1920 (Given - Provider: Carmela Long, LEON) hydroCHLOROthiazide (Hydrodiuril) tablet 12.5 mg(Linked Group 1) 12.5 mg, Oral, ONCE DAILY, First dose on Thu08/11/22 at 0800, Until Discontinued 075 (Given - Provid er: Halle Blancas, LEON) losartan (Cozaar) tablet 100 mg(Linked Group 1) 100 mg, Oral, ONCE DAILY, First dose on Thu08/11/22 at 0800, Until Discontinued 075 (Given - Provid er: Halle Blancas, LEON) sodium chloride 0.9% (NS) infusion 1,000 mL (COMPLETED) 1,000 mL, Intravenous, at 250 mL/hr, ONCE, 1 dose, On Thu08/10/22 at 0940 1002 (New Bag - Provider: Nguyen Schaefer, LEON) sodium chloride 0.9% IV FLUSH (NS) SYRINGE 3 mL 3 mL, IV Flush, EVERY 8 HOURS, First dose on Thu08/10/22 at 1500, Until Discontinued 1618 (Given by Other - Provider: Lilo Valera RN)2229 (Given - Provider: Carmela Long, LEON) 0610 (Given - Provider: Carmela Long, RN) PRN Medication Order 08/09/2022 08/10/2022 08/11/2022 acetaminophen (TYLENOL) tablet 650 mg(Linked Group 2) 650 mg, Oral, EVERY 4 HOURS NEEDED, Starting on Thu08/10/22 at 1424, Until Thu08/11/22 at 1527, Mild Pain (1-3), Fever 1539 (Given - Provider: Halle Blancas, LEON) 0133 (Given - Provider: Carmela Long, RN) calcium carbonate (Tums) chewable tablet 500 mg 500 mg, Chew, EVERY 4 HOURS NEEDED, Starting on Thu08/10/22 at 1424, Until Thu08/11/22 at 1527, Heartburn hydrALAZINE (Apresoline) injection 10 mg (CANCELED) 10 mg, IV Push, EVERY 4 HOURS NEEDED, Starting on Thu08/10/22 at 1424, Until Thu08/11/22 at 1012, Hypertension - enter BP threshold for administration in comments, For systolic blood pressure as defined in admin instructions 1540 (Given - Provider: Halle Blancas, RN) 9261 (Given - Provider: Carmela Long RN)7250 (Given - Provider: Halle Blancas, RN) ondansetron (Zofran ODT) disintegrating tablet 4 mg(Linked Group 3) 4 mg, Oral, EVERY 6 HOURS NEEDED, Starting on 08/10/22 at 1424, Until Thu08/11/22 at 1527, Nausea, Vomiting ondansetron (Zofran) injection 4 mg(Linked Group 3) 4 mg, IV Push, EVERY 6 HOURS NEEDED, Starting on Thu08/10/22 at 1424, Until Thu08/11/22 at 1527, Nausea, Vomiting sodium chloride 0.9% IV FLUSH (NS) SYRINGE 3 mL 3 mL, IV Flush, NEEDED, Starting on 08/10/22 at 1424, Until Thu08/11/22 at 1527, Other, flushes sodium chloride 0.9% IV LINE FLUSH (NS) BAG 30 mL 30 mL, IV Flush, SEE ADMINISTRATION INSTRUCTIONS, Starting on 08/10/22 at 1424, Until Thu08/11/22 at 1527, Other, priming/flush fluid Linked Groups Order Group 1: losartan (Cozaar) tablet 100 mgJump to med 100 mg, Oral, ONCE DAILY, First dose on Thu08/11/22 at 0800, Until Discontinued And hydroCHLOROthiazide (Hydrodiuril) tablet 12.5 mgJump to med 12.5 mg, Oral, ONCE DAILY, First dose on Thu08/11/22 at 0800, Until Discontinued Group 2: acetaminophen (TYLENOL) tablet 650 mgJump to med 650 mg, Oral, EVERY 4 HOURS NEEDED, Starting on 08/10/22 at 1424, Until Thu08/11/22 at 1527, Mild Pain (1-3), Fever Or acetaminophen (Tylenol) 160 MG/5ML suspension 650 mg (CANCELED) 650 mg, Oral, EVERY 4 HOURS NEEDED, Starting on 08/10/22 at 1424, Until Thu08/11/22 at 1009, Mild Pain (1-3), Fever Or acetaminophen (Tylenol) suppository 650 mg (CANCELED) 650 mg, Rectal, EVERY 4 HOURS NEEDED, Starting on 08/10/22 at 1424, Until 08/11/22 at 1009, Mild Pain (1-3), Fever Group 3: ondansetron (Zofran) injection 4 mgJump to med 4 mg, IV Push, EVERY 6 HOURS NEEDED, Starting on 08/10/22 at 1424, Until 08/11/22 at 1527, Nausea, Vomiting Or ondansetron (Zofran ODT) disintegrating tablet 4 mgJump to med 4 mg, Oral, EVERY 6 HOURS NEEDED, Starting on 08/10/22 at 1424, Until 08/11/22 at 1527, Nausea, Vomiting documented in this encounter Orders Medications Ordered That Adarsh ht Not Have Been Administered Count Last Ordered Date First Ordered Date acetaminophen (Tylenol) 160 MG/5ML suspension 650 mg 1 08/10/2022 acetaminophen (Tylenol) suppository 650 mg 1 08/10/2022 calcium carbonate (Tums) fred wable tablet 500 mg 1 08/10/2022 olmesartan-hydroCHLOROthiazi de (Benicar HCT) 40-12.5 MG Tablet 1 Tablet 1 08/10/2022 ondansetron (Zofran ODT) dis integrating tablet 4 mg 1 08/10/2022 ondansetron (Zofran) injection 4 mg 1 08/10 sodium chloride 0.9% IV FLUS H (NS) SYRINGE 3 mL 1 08/10/2022 sodium chloride 0.9% IV LINE FLUSH (NS) BAG 30 mL 1 08/10/2022 Admission Count Last Ordered Date First Orde red Date ASSIGN TO OBSERVATION 1 08/10/2022 Discharge Count Last Ordered Date First Orde red Date DISCHARGE PATIENT 1 08/11/2022 Diet Count Last Ordered Date First Orde red Date DISCHARGE DIET FOR PATIENT 1 08/11/2022 Nursing Count Last Ordered Date First Orde red Date ACTIVITY TOLERATED 1 08/11/2022 CARDIAC MONITORING 1 08/10/2022 NURSING COMMUNICATION 1 08/10/2022 NURSING IV START 1 08/10/2022 documented in this encounter Care Teams Clean In Places Operator Relationship Specialty Start Date End Date Donnell Hou MD [address] [place] [id number] PCP - General 12/11/11 documented as of this encounter
--- OUTSIDE RECORDS SUMMARY | 2023-06-16 08:43 | XMS_ITS | Encounter Summary ---
Author Name Unknown Organization [facility] Formerly [facility] Address [address] [address] Phone Care Team Providers Care Hospital Coordinator Name Role Phone Donnell Hou MD Primary Care Provider Reason for Visit * Reason Comments Follow Up Hospital follow up, head injury Colonoscopy Screening Referral AWV Encounter Details Date Type Department Care Team (Late st Contact Info) Description 08/25/2022 10:00 AM CDT Office Visit [facility] [address] [place] [phone] Donnell Hou MD [address] [place] [phone] Subarachnoid bleed (HCC) (Primary Dx); Essential hypertension; Mixed hyperlipidemia; Concussion with unknown loss of consciousness status, initial encounter; Prediabetes; Screen for colon cancer; Encounter for annual wellness visit (AWV) in Medicare patient Social History Tobacco Use Types Packs/Day Years [...] week 02/27/2021 How often do you attend yarsani or yarsanism serv ices? Never 02/27/2021 Do you belong to any clubs o r organizations such as yarsani groups, unions, fraternal or athletic groups, or [...] Answer Date Recorded PHQ-2 Total 0 08/25/2022 [facility] - Occupational Stress [...] AM CDT documented as of this encounter Last [...] Mass Index 32.06 08/25/2022 10:20 AM CDT documented in this encounter Functional Status Functional Status Response Date of Assess ment Patient's Vision Adequate to Safely Complete Daily Activities Yes 08/10/2022 Patient's Memory Adequate to Safely Complete Daily Activities Yes 08/10/2022 Cognitive Status Response Date of Assessm ent Patient's Judgment Adequate to Safely Complete Daily Activities Yes 08/10/2022 documented as of this encounter Patient Instructions * Patient Instructions* Donnell Hou MD - 08/25/2022 10:00 AM CDT Personalized Prevention Plan for Alec Clements Recommended screenings or prevention services: Colorectal screening Recommended immunizations: Seasonal Flu- yearly COVID-19 Shingrix Recommended Referrals based on your recent health assessment*: None Community- Based Programs*: None Goals: Goals None Health Maintenance Topic Date Due Shingrix (Zoster recombinant) vaccine (Standing Order) (1 of 2) Never done Colorectal Cancer Screening 05/19/2013 MEDICARE AWV 09/07/2018 COVID-19 Vaccine (3 - Booster for Moderna series) 11/09/2020 TETANUS (Standing Order) 07/27/2029 PERTUSSIS (Standing Order) Completed Influenza Vaccine Seasonal (Standing Order) Completed Pneumococcal Vaccine: 65+ yrs (Standing Order) Completed * Service may not be covered by Medicare, please contact Medicare and/or your supplemental insurance carrier for coverage documented in this encounter Ordered Prescriptions Prescription Sig Dispensed Refills Start Date End Da te olmesartan-hydroCHLOROthi azide (Benicar HCT) 40-12.5 MG oral tablet TAKE 1 TABLET DAILY 90 Tablet 3 08/25/2022 amLODIPine (Norvasc) 5 MG tablet Take 1 Tablet by mouth one time a day. IN THE EVENING 90 Tablet 3 08/25/2022 documented in this encounter Progress Notes * Donnell Hou MD - 08/25/2022 10:00 AM CDT Medicare Annual Wellness Visit Subjective Alec is here today for Medicare Annual Wellness Visit and follow up head injury and hypertension. With participation of patient, health history and health assessment was reviewed and updated: Allergies: Patient has No Known Allergies. Past Medical History: Patient has a past medical history of Other and unspecified hyperlipidemia (06/03/2004) and Unspecified essential hypertension (06/03/2004). Surgical History: Patient has a past surgical history that includes colonoscopy,biopsy (06/25/2012). Family History: Patient's family history includes Diabetes in his father, mother, and sister; Hypertension in his sister; No Known Problems in his brother, sister, and sister. There is no history of Cancer or Cardiovascular Disease. Social History: Patient reports that he has never smoked. He has quit using smokeless tobacco. His smokeless tobacco use included chew. He reports current alcohol use. He reports that he does not usedrugs. Social Determinants of Health Tobacco Use: Medium Risk ??? Smoking Tobacco Use: Never ??? Smokeless Tobacco Use: Former ??? Passive Exposure: Not on file Alcohol Use: Not on file Financial Resource Strain: Low Risk ??? Difficulty of Paying Living Expenses: Not hard at all Food Insecurity: No Food Insecurity ??? Worried About Running Out of Food in the Last Year: Never true ??? Ran Out of Food in the Last Year: Never true Transportation Needs: No Transportation Needs ??? Lack of Transportation (Medical): No ??? Lack of Transportation (Non-Medical): No Physical Activity: Not on file Stress: Not on file Social Connections: Not on file Intimate Partner Violence: Not on file Depression: Not at risk ??? PHQ-2 Score: 0 Housing Stability: Not on file Current Medications, Supplements and Vitamins Medications: Patient has a current medication list which includes the following prescription(s): amlodipine and olmesartan-hydrochlorothiazide. Health Review Summary Fall Risk Have you fallen in the past year?: (!) Yes Do you feel unsteady when standing or walking?: No Do you worry about falling?: No Does the patient use any devices for mobility? : No Advance Care Planning Patient offered appointment with advance care planning: discussed getting Objective Exam Blood pressure (!) 167/87, pulse 61, temperature 37 ??C (98.6 ??F), resp. rate 18, height 1.715 m (5' 7.5), weight 87.4 kg (192 lb 10.9 oz), SpO2 97 %. Body mass index is 29.73 kg/m??. See below Memory Screen Mini-Cog Clock Draw: 2 Mini-Cog Word Recall: 2 Mini-Cog Total Score: 4 CAGE-AID Questionnaire No flowsheet data found. Based on the CAGE-AID Screen There is no concern for substance use disorder(s) at this time. Opioid Prescription and Non-prescription Use Review The patient denies taking prescribed or non-prescribed opiates and/or opioids. Current providers and suppliers Preferred pharmacy: [facility], [place] - [address] [facility] [address] [facility] [employer] - [place], [place] - [address] [facility] [place] [address] [facility], [place] [facility] [address] [id number] [place], [place] - [address] [facility] [address] [facility] - [place]), [place] - [address] [facility] - [place], [place] - [address] [facility] Patient Care Team Relationship Specialty Notifications Start End Donnell Hou MD PCP - General 12/11/11 Comment: [phone] Address: [address] [place] [phone] Alec is a 72 year old here today for the following: For a follow-up head injury. Please see below. Reviewed Health Review documentation. Education given based on Screenings Personalized health advice provided for health education to promote and improve well-being related to nutrition, mood, activity, and safety. Education provided during this visit: brain health, bone health, exercise, fall prevention, fire safety, hearing loss, home safety, nutrition and stress management Referrals/Testing based on screenings are ordered and documented on patient's personalized prevention plan. Personalized Prevention Plan given to patient. Plan for preventative services Health Maintenance Due Topic Date Due ??? Shingrix (Zoster recombinant) vaccine (Standing Order) (1 of 2) Never done ??? Colorectal Cancer Screening 05/19/2013 ??? COVID-19 Vaccine (3 - Booster for Moderna series) 11/09/2020 HISTORY OF PRESENT ILLNESS: Alec Clements is a 72 year old male who presents to clinic today for a follow-up up. Patient suffered a head injury. Slipped on ice. Questionable loss of consciousness. Please see the ER and hospital notes. He did have a bleed which seem to be lessened on repeat CT imaging. Per reports. He reporting no headache. No fevers no chills no fogginess. No difficulty since sleeping. No mood disturbances. No focal weakness the arms or legs. No vision disturbances. No difficulty swallowing. No chest pain. No gait disturbances. He feels he is back to his normal self. No abdominal pain or discomfort. No blood in your stool black tarry stools. He wishes to have his meds reviewed today as well u. Also hypertensive checkup. The Patient's Active Problem List, Allergies, and Medications have been reviewed and updated if necessary and incorporated into progress note. Scroll through to review. Patient Active Problem List Diagnosis ??? Essential hypertension ??? Special screening for malignant neoplasm of prostate ??? Gluteal tendinitis of left buttock ??? Hamstring tightness/tendonitis left biceps femoris ??? Mixed hyperlipidemia ??? Concussion ??? Subarachnoid bleed (HCC) Outpatient Medications Marked as Taking for the 08/25/22 encounter (Office Visit) with Donnell Huo MD Medication Sig ??? amLODIPine (Norvasc) 5 MG tablet Take 1 Tablet by mouth one time a day. IN THE EVENING ??? olmesartan-hydroCHLOROthiazide (Benicar HCT) 40-12.5 MG oral tablet TAKE 1 TABLET DAILY No Known Allergies Review of Systems: As noted in HPI PHYSICAL EXAM: Vitals: 08/25/22 1020 08/25/22 1024 08/25/22 1037 BP: (!) 173/92 (!) 167/87 137/88 BP Location: Right arm BP Patient Position: Sitting Cuff Size: Adult Regular Pulse: 67 61 Resp: 18 Temp: 37 ??C (98.6 ??F) SpO2: 96% 97% Weight: 87.4 kg (192 lb 10.9 oz) Height: 1.651 m (5' 5) Body mass index is 32.06 kg/m??. Alert. Weight is up a bit. His pupils are equal round react light EOMs normal full. Throat is moistextremities nonerythematous. Ears normal TMs laterally nonreddened nonbulging. No air-fluid levels noted. Slight abrasion measuring less than 2 cm on the top of his head. Nontender. He has full rangeof motion about the neck without pain or discomfort. No tenderness when I palpate the scalp. No tenderness of the cervical thoracic or lumbar spinous processes. Lungs are peripherally clear and symmetric. Heart is S1-S2. Abdomen soft nontender no hepatosplenomegaly noted. Rn Circulating strength is equal. Gait is grossly normal up. Muscle strength testing 5 5 upper lower extremities. He is alert and oriented x3. Also mini cog today is a 4. Diagnostics: Recent Results (from the past 24 hour(s)) LIPID PANEL Result Value Ref Range Cholesterol 166 0 - 200 mg/dL HDL Cholesterol 27 (L) >40 mg/dL Non-HDL Cholesterol 139 (H) 0 - 130 mg/dL Triglycerides 233 (H) <175 mg/dL LDL Cholesterol, Calculated 92 0 - 100 mg/dL Narrative Total Cholesterol Reference Ranges Optimal: <200 mg/dL Borderline High: 200-239 mg/dL High: > or = 240 mg/dL Triglycerides Reference Ranges Optimal: 10-200 mg/dL Borderline High: 150-200 mg/dL High: 201-499 mg/dL Very High: > or = 500 mg/dL LDL Cholesterol Reference Ranges Optimal: <100 mg/dL Near Optimal: 100-129 mg/dL Borderline High: 130-159 mg/dL High: 160-189 mg/dL Very High: > or = 190 mg/dL BASIC METABOLIC PANEL Result Value Ref Range Sodium 141 134 - 143 mEq/L Potassium 4.1 3.4 - 5.1 mEq/L Chloride 105 99 - 110 mEq/L Carbon Dioxide 25 19 - 29 mEq/L Anion Gap 11.0 3.0 - 15.0 mEq/L Blood Urea Nitrogen 21 5 - 24 mg/dL Creatinine 1.10 0.70 - 1.20 mg/dL Glomerular Filtration Rate 71 >60 mL/min/1.73 m*2 Calcium 9.8 8.4 - 10.5 mg/dL Glucose 120 (H) 70 - 99 mg/dL Narrative Current ADA criteria for Glucose: Normal: 70-99 mg/dL Impaired Fasting Glucose: 100-125 mg/dL Diabetes Mellitus: at or above 126 mg/dL The diagnosis of diabetes must be confirmed on a subsequent day by measuring Fasting Plasma Glucose, 2-hr PG or random plasma glucose (if symptoms are present). HEMOGLOBIN A1C Result Value Ref Range Hemoglobin A1c 6.0 (H) 4.0 - 5.6 % Estimated Average Glucose 126 mg/dL Narrative HGA1C Reference Ranges ??>= 6.5 ?? Diabetes* ??5.7-6.4 ??Impaired glucose tolerance ?? <5.7 ?Normal *In the absence of unequivocal hyperglycemia, results should be confirmed by repeat testing for thediagnosis of diabetes. [place] [employer] 2018 ?? ASSESSMENT 1. Subarachnoid bleed (HCC) Recent. Does not appear to have any long-term sequelae and no mood disturbances. No memory changes,no sleep disturbances. We will continue to follow with develops any headache, mental status changesfocal weaknesses of course seek medical attention. Patient will hold his aspirin and actually just stay off of it. 2. Essential hypertension At home its been controlled less than 130s systolically and 90 diastolically. He will continue to follow at continue his present medications. - LIPID PANEL; Future - BASIC METABOLIC PANEL; Future - LIPID PANEL - BASIC METABOLIC PANEL 3. Mixed hyperlipidemia Cardiovascular risk is as follows:The 10-year ASCVD risk score (Jasvir GRIDER, et al., 2019) is: 32.2% Values used to calculate the score: Age: 72 years Sex: Male Is Non- : No Diabetic: No Tobacco smoker: No Systolic Blood Pressure: 137 mmHg Is BP treated: Yes HDL Cholesterol: 27 mg/dL Total Cholesterol: 166 mg/dL He does not wish to go on a statin medication. - LIPID PANEL; Future - BASIC METABOLIC PANEL; Future - LIPID PANEL - BASIC METABOLIC PANEL 4. Concussion with unknown loss of consciousness status, initial encounter Stable up. Continue to take it a bit easier. But he will start increasing his activity now up. Develops any symptomology of course seek medical attention. 5. Prediabetes A1c is 8% stable from what it was 4 years ago. Continue to be active which she is continue watch his caloric intake and I would like to try to lose some weight and repeat this test in 1 year. - BASIC METABOLIC PANEL; Future - HEMOGLOBIN A1C; Future - BASIC METABOLIC PANEL - HEMOGLOBIN A1C 6. Screen for colon cancer Ordered. - MIK 7. Encounter for annual wellness visit (AWV) in Medicare patient See above and the personal prevention plan. PLAN: See discussion above. See letter to patient with lab results follow-up of course any worsening symptomology from the head standpoint. I.e. headaches, vision disturbances, mental status changes, focalweakness, gait disturbance. Body mass index is 32.06 kg/m??. Class 1 Obesity Weight Management / BMI follow-up plan:Dietary surveillance and counseling. documented in this encounter Miscellaneous Notes * Clinical Note - Mara Medeiros LPN - 08/25/2022 10:00 AM CDT This chart was prepped for visit by Mara Medeiros LPN on 08/21/2022. documented in this encounter Plan of Treatment Not on file documented as of this encounter Procedures Procedure Name Priority Date/Time Associated Diagnosis Comments COLOGUARD Routine 08/31/2022 5:00 PM CDT Screen for colon cancer BASIC METABOLIC PANEL Routine 08/25/2022 10:59 AM CDT Essential hypertension Mixed hyperlipidemia Prediabetes HEMOGLOBIN A1C Routine 08/25/2022 10:59 AM CDT Prediabetes LIPID PROFILE Routine 08/25/2022 10:59 AM CDT Essential hypertension Mixed hyperlipidemia documented in this encounter Results * COLOGUARD (08/31/2022 5:00 PM CDT) Cologuard Colon Cancer Screen Negative Negative itembase (CLIA #:[id number]) Comment: NEGATIVE TEST RESULT. A negative Cologuard result indicates a low likelihood that a colorectal cancer (CRC) or advanced adenoma (adenomatous polyps with more advanced pre-malignant features) ??is present. The chance that a person with a negative Cologuard test has a colorectal cancer is less than 1 in 1500 (negative predictive value >99.9%) or has an ??advanced adenoma is less than ??5.3% (negative predictive value 94.7%). These data are based on a prospective cross-sectional study of 10,000 individuals at average risk for colorectal cancer who were screened with both Cologuard and colonoscopy. (Rich Menchaca al, N Engl J Med 2014;370(14):1286- 1297) The normal value (reference range) for this assay is negative. COLOGUARD RE-SCREENING RECOMMENDATION: Periodic colorectal cancer screening is an important part of preventive healthcare for asymptomatic individuals at average risk for colorectal cancer. ??Following a negative Cologuard result, the [place] [employer] and U.S. Multi-Society Task Force screening guidelines recommend a Cologuard re-screening interval of 3 years. References: [place] [employer] Guideline for Colorectal Cancer Screening: https://www.cancer.org/cancer/yqewi-zznmhf-jjhpha/nspgsourh-rikonrakb-tvrabor/ac s-rec ommendations.html.; Caleb DK, Go CR, Tiffanie BowenK, Colorectal Cancer Screening: Recommendations for Physicians and Patients from the U.S. Multi-Society Task Force on Colorectal Cancer Screening , Am J Gastroenterology 2017; 112:8693-5297. TEST DESCRIPTION: Composite algorithmic analysis of stool DNA-biomarkers with hemoglobin immunoassay. ?? Quantitative values of individual biomarkers are not reportable and are not associated with individual biomarker result reference ranges. Cologuard is intended for colorectal cancer screening of adults of either sex, 45 years or older, who are at average-risk for colorectal cancer (CRC). Cologuard has been approved for use by the U.S. FDA. The performance of Cologuard was established in a cross sectional study of average-risk adults aged 50-84. Cologuard performance in patients ages 45 to 49 years was estimated by sub-group analysis of near-age groups. Colonoscopies performed for a positive result may find as the most clinically significant lesion: colorectal cancer [4.0%], advanced adenoma (including sessile serrated polyps greater than or equal to 1cm diameter) [20%] or non- advanced adenoma [31%]; or no colorectal neoplasia [45%]. These estimates are derived from a prospective cross-sectional screening study of 10,000 individuals at average risk for colorectal cancer who were screened with both Cologuard and colonoscopy. (Rich Menchaca al, N Engl J Med 2014;370(14):7119-4813.) Cologuard may produce a false negative or false positive result (no colorectal cancer or precancerous polyp present at colonoscopy follow up). A negative Cologuard test result does not guarantee the absence of CRC or advanced adenoma (pre-cancer). The current Cologuard screening interval is every 3 years. ([place] [employer] and U.S. Multi-Society Task Force). Cologuard performance data in a 10,000 patient pivotal study using colonoscopy as the reference method can be accessed at the following location: www.flaregames.ADstruc/results. Additional description of the Cologuard test process, warnings and precautions can be found at www.cologCoverHoundrd.com. Stool FECES / Unknown 08/31/2022 5 :00 PM CDT 09/02/2022 12:19 PM CDT Donnell Hou MD EC LAB SEND OUT ORDERABLES Performing Organization Address City/[facility]/ZIP Co de Phone Number [employer] (CLIA #:[id number]) [address] [place] [address] * (ABNORMAL) HEMOGLOBIN A1C (08/25/2022 10:59 AM CDT) Pathologist [facility] Hemoglobin A1c 6.0(H) 4.0 - 5.6 % 08/25/2022 11:13 AM CDT [facility] Estimated Average Glucose 126 mg/dL 08/25/2022 11:13 AM CDT [facility] Blood BLOOD SPECIMEN / Unknown Venipuncture / Unknown 08/25/2022 10:59 AM CDT 08/25/2022 10:59 AM CDT Narrative [facility] - 08/25/2022 11:13 AM CDT HGA1C Reference Ranges ??>= 6.5 ?? Diabetes* ??5.7-6.4 ??Impaired glucose tolerance ?? <5.7 ?Normal *In the absence of unequivocal hyperglycemia, results should be confirmed by repeat testing for the diagnosis of diabetes. [place] [employer] 2018 ?? Donnell Hou MD EC CHEMISTRY OR DERABLES ABN Performing Organization Address City/[facility]/ZIP Co de Phone Number [facility] [address] * (ABNORMAL) BASIC METABOLIC PANEL (08/25/2022 10:59 AM CDT) Pathologist [facility] Sodium 141 134 - 143 mEq/L 08/25/2022 11:22 AM CDT [facility] Potassium 4.1 3.4 - 5.1 mEq/L 08/25/2022 11:22 AM CDT [facility] Chloride 105 99 - 110 mEq/L 08/25/2022 11:22 AM CDT [facility] Carbon Dioxide 25 19 - 29 mEq/L 08/25/2022 11:22 AM CDT [facility] Anion Gap 11.0 3.0 - 15.0 mEq/L 08/25/2022 11:22 AM CDT [facility] Blood Urea Nitrogen 21 5 - 24 mg/dL 08/25/2022 11:22 AM CDT [facility] Creatinine 1.10 0.70 - 1.20 mg/dL 08/25/2022 11:22 AM CDT [facility] Glomerular Filtration Rate 71 >60 mL/min/1. 73 m*2 08/25/2022 11:22 AM CDT [facility] Comment:Risk of cardiovascul ar disease increases when GFR is abnormal; persistently reduced GFR values are a specific indication of CKD. This calculation uses CKD- EPI 2020 equation without adjustment for race; it has not been validated in women. Calcium 9.8 8.4 - 10.5 mg/dL 08/25/2022 11:22 AM CDT [facility] Glucose 120(H) 70 - 99 mg/dL 08/25/2022 11:22 AM T [facility] Blood BLOOD SPECIMEN / Unknown Venipuncture / Unknown 08/25/2022 10:59 AM CDT 08/25/2022 10:59 AM CDT Narrative [facility] - 08/25/2022 11:22 AM CDT Current ADA criteria for Glucose: ?Normal: 70-99 mg/dL ?Impaired Fasting Glucose: 100-125 mg/dL ?Diabetes Mellitus: at or above 126 mg/dL The diagnosis of diabetes must be confirmed on a subsequent day by measuring Fasting Plasma Glucose, 2-hr PG or random plasma glucose (if symptoms are present). Donnell Hou MD EC CHEMISTRY OR DERABLES [facility] [address] [place] [address], [facility] * (ABNORMAL) LIPID PANEL (08/25/2022 10:59 AM CDT) Cholesterol 166 0 - 200 mg/dL 08/25/2022 11:22 AM CDT [facility] HDL Cholesterol 27(L) >40 mg/dL 11:22 AM CDT [facility] Non-HDL Cholesterol 139(H) 0 - 130 mg/dL 08/25/2022 11:22 AM CDT [facility] Triglycerides 233(H) <175 mg/dL 08/25/2022 11:22 AM CDT [facility] LDL Cholesterol, Calculated 92 0 - 100 mg/dL 08/25/2022 11:22 AM CDT [facility] Blood BLOOD SPECIMEN / Unknown Venipuncture / Unknown 08/25/2022 10:59 AM CDT 08/25/2022 10:59 AM CDT Narrative [facility] - 08/25/2022 11:22 AM CDT Total Cholesterol Reference Ranges Optimal: <200 mg/dL Borderline High: 200-239 mg/dL High: > or = 240 mg/dL Triglycerides Reference Ranges Optimal: 10-200 mg/dL Borderline High: 150-200 mg/dL High: 201-499 mg/dL Very High: > or = 500 mg/dL LDL Cholesterol Reference Ranges Optimal: <100 mg/dL Near Optimal: 100-129 mg/dL Borderline High: 130-159 mg/dL High: 160-189 mg/dL Very High: > or = 190 mg/dL Donnell Hou MD EC CHEMISTRY OR DERABLES ABN [facility] [address] documented in this encounter Visit Diagnoses Diagnosis Subarachnoid bleed (HCC)- Primary Subarachnoid hemorrhage Essential hypertension Unspecified essential hypertension Mixed hyperlipidemia Concussion with unknown loss of consciousness status, initial encounter Prediabetes Other abnormal glucose Screen for colon cancer Special screening for malignant neoplasms, colon Encounter for annual wellness visit (AWV) in Medicare patient documented in this encounter Discontinued Medications Medication Sig Discontinue Reason Start Date End Da te aspirin EC 81 MG tablet Take 1 Tablet by mouth one time a day. Do not split or crush. Hold for at least 2 weeks or until you see Dr. Hou. Other 08/11/2022 08/25/2022 amLODIPine (Norvasc) 5 MG tablet Take 1 Tablet by mouth one time a day. IN THE EVENING Reorder 06/26/2022 08/25/2022 olmesartan-hydroCHLOROth iazide (Benicar HCT) 40-12.5 MG oral tablet TAKE 1 TABLET DAILY Reorder 06/26/202208/25 documented as of this encounter Care Teams Hospital Coordinator Relationship Specialty Start Date End Date Donnell Hou MD [address] [place] [phone] PCP - General 12/11/11 documented as of this encounter
--- OUTSIDE RECORDS SUMMARY | 2023-06-16 08:43 | XMS_ITS | Encounter Summary ---
Author Name Unknown Organization [facility] and [facility] Address [address] [address] Phone Care Team Providers Care Motor Vehicle Licence Examiner Name Role Phone Donnell Hou MD Primary Care Provider Reason for Visit * Reason Onset Date Comments Refill Request 06/26/2022 Amlodipine, olme sartan-hydrochlorothiazide Encounter Details Date Type Department Care Team (Late st Contact Info) Description 06/26/2022 Refill [facility] NURSE CARE LINE [address] [place] [address] Danielle Cameron RN Refill Request (Amlodipine, olmesartan-hydrochloroth iazide ) Social History Tobacco Use Types Packs/Day [...] week 02/27/2021 How often do you attend restorationism or samaritan serv ices? Never 02/27/2021 Do you belong to any clubs o r organizations such as restorationism groups, unions, fraternal or athletic groups, or [...] Answer Date Recorded PHQ-2 Total 0 02/03/2022 [facility] - [...] Dispensed Refills Start Date End Da te olmesartan-hydroCHLOROth iazide (Benicar HCT) 40-12.5 MG oral tablet TAKE 1 TABLET DAILY 90 Tablet 2 06/26/2022 08/25/2022 amLODIPine (Norvasc) 5 MG tablet Take 1 Tablet by mouth one time a day. IN THE EVENING 90 Tablet 2 06/26/2022 08/25/2022 documented in this encounter Miscellaneous Notes * Telephone Encounter - Danielle Cameron RN - 06/26/2022 8:54 AM CST I have reviewed the documentation related to this refill. This refill request is Ok to authorize per the [facility] Medication Refill Standing Orders. 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, Pool: JULIOCESAR ([id number]) olmesartan-hydroCHLOROthiazide (Benicar HCT) 40-12.5 MG oral tablet Hypertension: Diuretics & Combos 2 -> The patient is requesting a renewal [...] 12/10/2022 (in Family Practice) Last ordered by DONNELL HOU: 02/27/2022 (119 days ago) QTY: 90, Refills: 3, Sig: take 1 tablet daily (unchanged) SBP: 138 mm Hg on 02/03/2022 DBP: 80 mm Hg on 02/03/2022 [facility] Embedded Refills, Reference: [id number], 06/26/2022 8:48:37 AM 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 IN THE EVENING Quantity: 90 Tablet Pharmacy: [facility], ??E- ?? Comments: No longer using [facility]. [facility]Patient is also requesting a 30 day supply of amLODIPine (Norvasc) 5 MG tablet be sent to [facility] [place], [place]. Informed patient to call the Pharmacy for refill status. 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
[2023-06-16] MEDS: LACTATED RINGERS 1000 ML 1,000 ML 100 ML IV ×2 (09:12→12:51)
[2023-06-16] MEDS: SODIUM CHLORIDE 0.9 % (FLUSH) 10 ML SYRINGE IVF (09:12)
[2023-06-16] MEDS: OXYCODONE (CR) 10 MG TAB.ER.12H PO (09:17)
[2023-06-16] MEDS: CELECOXIB 200 MG CAPSULE PO (09:17)
[2023-06-16] MEDS: ACETAMINOPHEN 500 MG TABLET 1000 MG PO ×3 (09:17→23:39)
[2023-06-16] MEDS: MIDAZOLAM HCL 1 MG/ML inj IVP (10:20)
[2023-06-16] MEDS: fentaNYL 100 MCG/2 ML inj IVP (10:25)
--- NOTE | 2023-06-16 10:35 | SUR.PREOP ---
TIME?OUT:?1020 PT/adeline chanel RN/austin gerard MDA/ gabriel garcia CRNA?VERIFICATION?OF?SURGICAL?SITE,?PROCEDURE,?AND?CONSENT OBTAINED?PRIOR?TO?INVASIVE?PROCEDURE.
--- NOTE | 2023-06-16 10:45 | P.NB_ITS ---
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 Images saved: Yes Medications given in 5ml increments after negative aspiration: Ropivicaine %: 0.5 mL: 30 Needle gauge: 20 Decadron (mg): 10 Precedex (mcg): 25 Patient tolerated procedure well: Yes
[2023-06-16] MEDS: TRANEXAMIC ACID 100 MG/ML INJ 1000 MG IV (11:37)
[2023-06-16] MEDS: CEFAZOLIN 2 GM INJ IVP (11:37)
--- NOTE | 2023-06-16 11:50 | XR_ITS ---
Patient: LG BARTLETT Facility:?[facility] Patient ID:?[id number] Site Patient ID:?[id number]. Site :?[id number] Study:?XRay-Hip Right W/ C-ARM-06/16/2023 1:35:14 PM Ordering Physician:?EMMA MUNROE Final Report: Indication: Hip replacement surgery Technique: AP hip fluoroscopic images. Fluoroscopy time 49.4 seconds. Findings/Impression: Hardware from a right total hip arthroplasty is in satisfactory position. Dictated by Manan Olivas MD @ 06/19/2023 5:47:34 AM Signed by:?Manan Olivas MD @06/19/2023 5:47:34 AM (Electronic Signature)
--- NOTE | 2023-06-16 12:55 | W.ANESCHARGE ---
Anesthesia Charges Start Date/Time Anesthesia Start Date: 06/16/23 Anesthesia Start Time: 11:26 Stop Date/Time Anesthesia Stop Date: 06/16/23 Anesthesia Stop Time: 14:23 Summary Extremes of Age - Over 70 or under 1: MDA
--- NOTE | 2023-06-16 13:42 | XR_ITS ---
Patient: LG BARTLETT Facility:?[facility] Patient ID:?[id number] Site Patient ID:?[id number]. Site :?1950 Study:?XRay-Hip Right POST OP SHANIA-06/16/2023 2:49:17 PM Ordering Physician:?EMMA MUNROE Final Report: Indication: Postop Technique: AP hip centered pelvis and lateral view right hip Findings/Impression: Hardware from a right total hip arthroplasty is in satisfactory position. Bone alignment is normal. No sign of acute fracture. Postop changes are within normal limits. Dictated by Manan Olivas MD @ 06/19/2023 5:46:16 AM Signed by:?Manan Olivas MD @06/19/2023 5:46:16 AM (Electronic Signature)
--- NOTE | 2023-06-16 13:45 | P.ORPRC_ITS ---
Procedure Note Date of procedure: 06/16/23 Procedure: PREOPERATIVE DIAGNOSIS: Right hip osteoarthritis POSTOPERATIVE DIAGNOSIS: Right hip osteoarthritis NAME OF OPERATION: Right total hip arthroplasty SURGEON: Maciej Hdez MD OUTREACH SPECIALIST: Skye Kerr PA-C, Rosalba Chawla PA-C IMPLANTS: 1. [employer] # 56 sector ingrowth cup 2. 36 x 56 +4 neutral polyethylene 3. Actis # 6 standard collared ingrowth stem 4. 36 + 1.5 ceramic femoral head ANESTHESIA: General ESTIMATED BLOOD LOSS: 600 cc COMPLICATIONS: None SPECIMENS: None DRAINS: None PREOPERATIVE ANTIBIOTICS: Ancef 2 grams INDICATIONS: The patient is a 73-year-old with a longstanding history of severe, unrelenting right hip pain secondary to end-stage right hip osteoarthritis. Despite appropriate nonoperative management, including activity modification, use of an assist device, anti-inflammatories, wdaj-quw-zjobptn pain medication, physical therapy and injections, they continue to have pain and disability. Operative intervention was offered. The risks, benefits and expected outcomes were discussed in detail. These included but were not limited to: Infection, bleeding, injury to blood vessel or nerve, venous thromboembolism. All questions were answered to their satisfaction. Use of an hospital aides and assistants teacher was necessary throughout the case for patient positioning and safety, soft tissue retraction and closure. PROCEDURE: The patient was placed supine on the [place] table. General anesthesia was administered. The hospital aides and assistants teacher made sure the patient was properly positioned. The right hip was prepped and draped in the usual sterile fashion. The image intensifier was brought in for a perfect AP pelvis and a perfect double tear drop AP view of each hip which were used for intraoperative templating with our fluoroscopic guide. An oblique incision was made 3 cm distal and 3 cm lateral to the anterior superior iliac spine. The hospital aides and assistants teacher retracted the soft tissues to protect them. Subcutaneous dissection was taken with electrocautery to the superficial fascia. The fascia was divided in line with the incision. Blunt dissection was carried medially to the tensor fascia floyd and sartorius interval. Deep dissection was carried with electrocautery. The circumflex vessels were cauterized and divided. The capsule was exposed and then divided in a T- fashion, tagged with #1 Ethibond sutures. Retractors were placed in the joint, held by the hospital aides and assistants teacher. The corkscrew was placed in the femoral head. The neck cut was made in the subcapital region. We made a second neck cut more distal. The napkin ring of bone was removed. The femoral head was removed intact. Acetabular retractors were placed, held by the hospital aides and assistants teacher. The labrum was sharply debrided. The capsule was released. The 43 mm reamer was used to the true medial wall. We then enlarged in 2 mm increments using the image intensifier for our reamer placement. We impacted the cup which had excellent purchase. We placed the polyethylene. Attention was then turned to the proximal femur. The limb was placed in 140 degrees of external rotation, maximum extension and adduction. A significant amount of time was spent releasing the capsule to allow us to deliver the femur into the wound and complete the femoral side safely. Retractors were held by the hospital aides and assistants teacher throughout the femoral preparation. The box blank machine feeder and canal finder were used. Broaches were used to a stable size. The calcar reamer was used. Trial components were placed. The hip was reduced and was found to be stable with appropriate soft tissue tension. Length and offset had been nicely restored using the image intensifier and our fluoroscopic guide. Trial components were removed. The stem was impacted. We placed the femoral head. Again, the hip was reduced and was found to be stable with appropriate soft tissue tension. Length and offset had been nicely restored. The hospital aides and assistants teacher did a three minute dilute Betadine solution soak. The hospital aides and assistants teacher irrigated the wound with 3 liters of normal saline via pulse lavage. The hospital aides and assistants teacher repaired the anterior capsule with a #1 Vicryl and our previously placed Ethibond sutures. The hospital aides and assistants teacher closed the fascia over the tensor fascia floyd with a #1 PDO Stratafix, subcutaneous tissues with 2-0 Vicryl, skin with a running 3-0 Stratafix and glue. A dry dressing was applied by the hospital aides and assistants teacher. Sponge and needle counts were correct x 2. The patient tolerated the procedure well; there were no apparent complications. They were awakened and extubated in the operating room, sent to the Post-Anesthesia Care Unit in satisfactory condition. PLAN: 1. The patient will be mobilized with physical therapy, weight-bearing as tolerates 2. Xarelto x 5 days then aspirin x 30 days will be used for DVT prophylaxis 3. The patient will be discharged once medically appropriate
--- NOTE | 2023-06-16 14:24 | W.ANESCHARGE ---
Anesthesia Charges Start Date/Time Anesthesia Start Date: 06/16/23 Anesthesia Start Time: 11:26 Stop Date/Time Anesthesia Stop Date: 06/16/23 Anesthesia Stop Time: 14:18
--- NOTE | 2023-06-16 14:28 | W.ANESCHARGE ---
Anesthesia Charges Start Date/Time Anesthesia Start Date: 06/16/23 Anesthesia Start Time: 11:26 Stop Date/Time Anesthesia Stop Date: 06/16/23 Anesthesia Stop Time: 14:23
--- NOTE | 2023-06-16 15:11 | P.IMCN_ITS ---
Date of Consult Patient: [facility] Patient Consult date: 06/16/23 Requesting Physician: Orthopedics Primary Care Provider: Alysha Diaz MD Consult Narrative Reason for consult: Medical management of comorbidities Narrative: Alec Clements is a 73 year old male who presented to the hospital today for an elective R SHANIA. There were no surgical or anesthetic complications noted during procedure. Patient's H&P reviewed, PCP is Dr. Diaz. Past medical history significant for: Hyperlipidemia, hypertension, prediabetes. Nuclear med perfusion study in 2022 reassuring. History of blood clots: No Postoperative plan: Home with family When I see patient at bedside, he is sleepy but arousable. No concerns for hospitalist team. Review of Systems Status of ROS: Reports: 10 or more systems reviewed and unremarkable except as noted in History and below [facility] Medical History (Updated 05/28/23 @ 09:56 by Alysha Diaz MD) Subarachnoid hemorrhage following injury with concussion ?S06.6XAA - Traumatic subarachnoid hemorrhage with loss of consciousness status unknown, initial encounter (ICD-10) Surgical History (Updated 06/16/23 @ 16:04 by Maki Laura MD) History of right hip replacement ?Z96.641 - Presence of right artificial hip joint (ICD-10) H/O arthroscopy of left knee (~1999) ?Z98.890 - Other specified postprocedural states (ICD-10) Family History (Updated 04/01/23 @ 10:42 by Velma Sal) Mother Diabetes Father Diabetes Sister Diabetes High blood pressure Social History (Updated 01/22/23 @ 08:38 by Andria Saleh ~ [facility]) Smoking Status: Never smoker Do you use any of these nicotine containing products: None How often do you have a drink containing alcohol: monthly or less AUDIT-C Alcohol total score: 1 Caffeine: Yes Meds Home Medications and Allergies Home Medications Medication Instructions Recorded Confirmed Type amlodipine 5 mg tablet 5 mg PO DAILY 01/22/23 06/16/23 History olmesartan 40 1 tab PO DAILY 01/22/23 06/16/23 History mg-hydrochlorothiazide 12.5 mg tablet Allergies Allergy/AdvReac Type Severity Reaction Status Date / Time No Known Drug Allergies Allergy Verified 06/16/23 08:59 Exam Narrative: Exam Narrative: GEN: Sleepy but arousable, nontoxic HEENT: EOMIs bilaterally, no scleral icterus CV: RRR, No concerning murmurs R: LCTA bilaterally without concerning wheezing, rales, or rhonchi Ext: Alin hose bilaterally Skin: No concerning skin lesions or rashes on exposed skin Neuro: Nonfocal Psych: Appropriate Const: Vital Signs, click to edit/add: Vital Signs - 24 hr 06/16/23 09:11 06/16/23 10:24 06/16/23 10:30 Temperature 97.8 F Pulse Rate 96 74 96 Respiratory Rate 18 18 16 Blood Pressure 139/84 141/85 H 151/96 H Pulse Oximetry 97 98 100 Oxygen Delivery Me thod Room Air Nasal Cannula Nasal Cannula Oxygen Flow Rate 2 2 06/16/23 14:20 06/16/23 14:25 06/16/23 14:30 Temperature 98.2 F Pulse Rate 66 64 62 Respiratory Rate 14 15 16 Blood Pressure 96/58 L 92/58 L 94/58 L Pulse Oximetry 94 94 94 Oxygen Delivery Me thod Room Air Room Air Room Air Oxygen Flow Rate 06/16/23 14:35 06/16/23 14:40 06/16/23 14:45 Temperature 98.2 F Pulse Rate 67 74 68 Respiratory Rate 14 17 14 Blood Pressure 88/64 L 106/56 L 101/57 L Pulse Oximetry 95 95 95 Oxygen Delivery Me thod Room Air Room Air Room Air Oxygen Flow Rate 06/16/23 14:50 Temperature 97.5 F L Pulse Rate 77 Respiratory Rate 17 Blood Pressure 103/65 Pulse Oximetry 95 Oxygen Delivery Me thod Room Air Oxygen Flow Rate Assessment and Plan Assessment and plan (1) History of right hip replacement: Problem comment: - 06/16/23Lemuel Status: Acute Plan - pain management and prophylaxis per orthopedic surgery team - continue home medications for comorbidities - anticipate routine postoperative course - family updated at bedside, questions answered
[2023-06-16] MEDS: LACTATED RINGERS 1000 ML 1,000 ML 75 ML IV (15:48)
[2023-06-16] MEDS: CEFAZOLIN 2 GM in 0.9 % SODIUM CHLORIDE Mini-bag 100 ML IVPB (18:04)
[2023-06-16] MEDS: SENNOSIDES 1 TAB TABLET 2 TAB PO (21:32)
--- NOTE | 2023-06-16 22:46 | PC.NURSE ---
Patient arrived to the unit from surgery. Right total hip performed. Patient tolerating clears and able to advance diet. Patient reporting no pain. Up walking the halls multiple times during the night. Ice applied to right hip. Vitally stable. Will see PT and OT in the morning. Was able to void 150mL, did not feel distended. Nursing to continue to monitor.
[2023-06-17] MEDS: CEFAZOLIN 2 GM in 0.9 % SODIUM CHLORIDE Mini-bag 100 ML IVPB (02:17)
[2023-06-17 02:20] VITALS: BP 130/73; PULSE 91; RESP 16; TEMP 37.1; O2SAT 97
[2023-06-17] MEDS: ACETAMINOPHEN 500 MG TABLET 1000 MG PO (05:31)
--- NOTE | 2023-06-17 06:13 | PC.NURSE ---
Pt alert and oriented x3. Afebrile. Pt?denies pain, SOB, chest pain, and N/V. Pt?s left hip dressing is CDI. pt is up SBA with walker and gait belt, walking, voiding, and tolerating a regular diet. Pt slept intermittently throughout night.? ??
[2023-06-17 06:54] LABS: Basophils Percent Auto 0.1 % (0.0-3.0); Hematocrit 30.6 % (37.0-53.0); Hemoglobin* 10.3 gm/dL (13.5-17.5); Immature Granulocytes Pct Auto 0.4 %; Lymphocytes Percent Auto 11.4 % (20-44); Mean Corpuscular HGB Conc 34 gm/dL (32-36); Mean Corpuscular Hemoglobin 30 pg (26-34); Mean Corpuscular Volume 90 fL (80-100); Monocytes Percent Auto 9.5 % (0.0-11.0); Neutrophils Percent Auto 78.6 % (42.0-72.0); Platelet Count* 265 K/uL (140-440); RDW Coefficient of Variation % 13.3 % (11.5-15.5); Red Blood Count 3.41 m/uL (4.30-5.90); White Blood Count* 13.93 K/uL (4.50-11.00)
[2023-06-17 07:00] VITALS: BP 129/78; PULSE 99; RESP 16; TEMP 37.1; O2SAT 97
[2023-06-17 07:08] LABS: Sodium* 134 mmol/L (135-149)
[2023-06-17 07:09] LABS: Potassium* 4.1 mmol/L (3.6-5.1)
[2023-06-17 07:12] LABS: Blood Urea Nitrogen* 27 mg/dL (7-30); Est. Creatinine Clearance* 56.38; Estimated Glomerular Filt Rate 79 ml/min
[2023-06-17 07:21] LABS: Slide Review Reflex No
--- NOTE | 2023-06-17 08:23 | PM.ORPN ---
Subjective Subjective Time Seen by Provider: 07:45 Date Seen: 06/17/23 Principal diagnosis: Status post right hip replacement Interval history: Nico is comfortable at rest. He will discharge to home today. Ortho Exam Narrative Exam Narrative: Alert and oriented x3. Patient is in no acute distress. Converses without labored breathing. Hearing is grossly intact. Ambulates with a walker. Examination of the right hip shows small area of ecchymosis. Mild edema about the right hip. Dressing is intact. CMS intact right lower extremity. Quad strength 5/5, however unable to perform a straight leg raise test. Bilateral calves are soft and nontender. Const Vital Signs, click to edit/add: Vital Signs - 24 hr 06/16/23 09:11 06/16/23 10:24 06/16/23 10:30 Temperature 97.8 F Pulse Rate 96 74 96 Pulse Rate [Pulse Oximeter] Respiratory Rate 18 18 16 Blood Pressure 139/84 141/85 H 151/96 H Blood Pressure [Left Arm] Pulse Oximetry 97 98 100 Oxygen Delivery Method Room Air Nasal Cannula Nasal Cannula Oxygen Flow Rate 2 2 06/16/23 14:20 06/16/23 14:25 06/16/23 14:30 Temperature 98.2 F Pulse Rate 66 64 62 Pulse Rate [Pulse Oximeter] Respiratory Rate 14 15 16 Blood Pressure 96/58 L 92/58 L 94/58 L Blood Pressure [Left Arm] Pulse Oximetry 94 94 94 Oxygen Delivery Method Room Air Room Air Room Air Oxygen Flow Rate 06/16/23 14:35 06/16/23 14:40 06/16/23 14:45 Temperature 98.2 F Pulse Rate 67 74 68 Pulse Rate [Pulse Oximeter] Respiratory Rate 14 17 14 Blood Pressure 88/64 L 106/56 L 101/57 L Blood Pressure [Left Arm] Pulse Oximetry 95 95 95 Oxygen Delivery Method Room Air Room Air Room Air Oxygen Flow Rate 06/16/23 14:50 06/16/23 14:56 06/16/23 14:56 Temperature 97.5 F L 96.7 F L 96.7 F L Pulse Rate 77 70 70 Pulse Rate [Pulse Oximeter] Respiratory Rate 17 14 14 Blood Pressure 103/65 Blood Pressure [Left Arm] 101/62 101/62 Pulse Oximetry 95 Oxygen Delivery Method Room Air Room Air Room Air Oxygen Flow Rate 06/16/23 15:15 06/16/23 15:30 02/13/24 15:45 Temperature 97.1 F L 97.1 F L 96.8 F L Pulse Rate Pulse Rate [Pulse Oximeter] 74 67 61 Respiratory Rate 14 14 14 Blood Pressure Blood Pressure [Left Arm] 116/74 109/73 109/71 Pulse Oximetry 95 97 96 Oxygen Delivery Method Room Air Room Air Room Air Oxygen Flow Rate 06/16/23 16:00 06/16/23 16:00 06/16/23 16:30 Temperature 96.5 F L 96.5 F L 96.4 F L Pulse Rate Pulse Rate [Pulse Oximeter] 71 71 75 Respiratory Rate 16 16 16 Blood Pressure Blood Pressure [Left Arm] 124/75 124/75 103/69 Pulse Oximetry 96 96 97 Oxygen Delivery Method Room Air Room Air Room Air Oxygen Flow Rate 06/16/23 17:00 06/16/23 18:00 06/16/23 19:00 Temperature 96.5 F L 97.4 F L Pulse Rate Pulse Rate [Pulse Oximeter] 80 93 Respiratory Rate 16 16 Blood Pressure Blood Pressure [Left Arm] 122/96 H 123/78 132/85 Pulse Oximetry 99 98 Oxygen Delivery Method Room Air Room Air Oxygen Flow Rate 06/16/23 20:00 06/16/23 21:00 06/16/23 23:30 Temperature 97.6 F Pulse Rate Pulse Rate [Pulse Oximeter] 10 L 105 H Respiratory Rate 16 16 16 Blood Pressure Blood Pressure [Left Arm] 117/75 118/87 Pulse Oximetry 98 97 Oxygen Delivery Method Room Air Room Air Oxygen Flow Rate 06/16/23 23:30 06/17/23 02:20 06/17/23 07:00 Temperature 98.1 F 98.8 F Pulse Rate Pulse Rate [Pulse Oximeter] 94 91 99 Respiratory Rate 16 16 16 Blood Pressure Blood Pressure [Left Arm] 129/72 130/73 Pulse Oximetry 96 97 Oxygen Delivery Method Room Air Room Air Oxygen Flow Rate 06/17/23 07:00 Temperature 98.8 F Pulse Rate Pulse Rate [Pulse Oximeter] 99 Respiratory Rate 16 Blood Pressure Blood Pressure [Left Arm] 129/78 Pulse Oximetry 97 Oxygen Delivery Method Room Air Oxygen Flow Rate Assessment and Plan Assessment and plan (1) History of right hip replacement: Problem details: - 06/16/23Lemuel Status: Acute Assessment and Plan: Plan for discharge is today to home if they meet discharge criteria. DVT prophylaxis includes Xarelto 10 mg daily for total of 5 days, then aspirin 81 mg twice daily for 30 days, Alin stockings x1 month may remove for 1 hr per day, frequent ambulation Remove dressing 1 week. Observe wound and phone Orthopedics with any questions or concerns Use Ice on operative hip unrestricted. Return to clinic in 1 week with PA for a wound check Return to clinic in 6 weeks with surgeon Minimize narcotic use. Wean off and discontinue soon as possible. Activities as tolerated. No strenuous activity. Attend outpt PT
[2023-06-17] MEDS: OXYCODONE 5 MG TABLET PO (08:25)
[2023-06-17] MEDS: RIVAROXABAN 10 MG TABLET PO (08:25)
[2023-06-17] MEDS: AMLODIPINE 5 MG TABLET PO (08:25)
[2023-06-17] MEDS: SENNOSIDES 1 TAB TABLET 2 TAB PO (08:25)
--- NOTE | 2023-06-17 10:30 | PC.NURSE ---
Discharge: patient alert and oriented x4. Ambulates hallway and to BR with walker/GB . Dressing to right hip is C/D/I. Patient up to chair for meals and tolerating a reg. diet. Patient voiding and passing gas. Patient's VSS, denies pain, prn OXY administered x1 prior to therapy. Patient was discharged to home today accompanied by spouse at 1020. IV removed intact. Discharge instructions signed and patient verbalized understanding of instructions. Belongings sheet also signed.
== END 2023-06-17 10:20 | disposition home or self-care (01) ==
LOC: OR 08:49 → MEDSURG 08:50
PROVIDERS: PCP Family Medicine; Visit Provider Orthopaedic Surgery
PROC: (CPT 27130; principal; 2023-06-16 10:30)
DX: M16.11 Unilateral primary osteoarthritis, right hip (principal); G89.18 Other acute postprocedural pain; I10 Essential (primary) hypertension; R73.03 Prediabetes; E78.5 Hyperlipidemia, unspecified
CPT/HCPCS: 27130; 01214; 36415; 64450; 73501; 73502; 76000; 76942; 82565; 84132; 84295; 84520; 85025; 97110; 97116; 97162; 97165; 97535; 99100; A9270; C1776; J0330; J0690; J1100; J1170; J2250; J2405; J2704; J2710; J2795; J3010; J7120

== ENCOUNTER 2023-09-07 07:56 | Outpatient (CLI) | payer MEDICARE, SELFPAY ==
--- OUTSIDE RECORDS SUMMARY | 2023-09-07 07:59 | XMS_ITS | Clinical Summary ---
Author Name Unknown Organization [facility] Address [address] [address] Phone Care Team Providers Care Blow Moulding Machine Operator Name Role Phone Donnell Hou MD [...] History Surgery Date Site/Laterality Comments COLONOSCOPY,BIOPSY 06/25/2012 [facility] dr denson--tubular adenoma Medical History Medical History [...] week 02/27/2021 How often do you attend pentecostal or druze serv ices? Never 02/27/2021 Do you belong to any clubs o r organizations such as pentecostal groups, unions, fraternal or athletic groups, or [...] Answer Date Recorded PHQ-2 Total 0 08/25/2022 [facility] of Occupat ional [facility] - Occupational Stress Questionnaire Answer Date [...] things needed for daily living? No 08/25/2022 IP [facility] Answer Date Recorded How hard is it for you to pa y for the very basics like food, housing, medical care, and heating? 5 08/25/2022 Sex and Gender Information Value Date [...] 2009 FIT/FOBT 05/19/2013 05/19/2012 COVID-19 Vaccine ( season) 2023 09/14/2020, 08/17/2020 Influenza Vaccine Seasonal [...] on patient's age to complete this topic Procedures Procedure Name Priority Date/Time Associated Diagnosis Comments COLOGUARD Routine 08/31/2022 5:00 PM CDT Screen for colon cancer FECAL OCCULT BLOOD, IMMUNOASSAY (COLORECTAL SCREENING) Routine 05/19/2012 8:00 AM VICE PRESIDENT OF COMMUNICATIONS Special screening for malignant neoplasms, colon from Last 3 Months or Most Recently Relevant to Health Maintenance Results * COLOGUARD (08/31/2022 5:00 PM CDT) Cologuard Colon Cancer Screen Negative Negative Medical Referral Source (CLIA #:[id number]) Comment: NEGATIVE TEST RESULT. A negative Cologuard [...] cancer. ??Following a negative Cologuard result, the [place] [employer] Society and U.S. Multi-Society Task Force screening guidelines recommend a Cologuard re-screening interval of 3 years. References: [place] [employer] Guideline for Colorectal Cancer Screening: https://www.cancer.org/cancer/uulgl-bwhgkr-cmcpbb/iwqwnrzad-nasdbggsy-oqozdzs/ac s-rec ommendations.html.; Caleb DK, Go CR, Tiffanie BowenK, Colorectal Cancer Screening: Recommendations for Physicians and Patients from the U.S. Multi-Society Task Force on Colorectal Cancer Screening , Am J Gastroenterology 2017; 112:5707-9734. TEST DESCRIPTION: Composite algorithmic analysis of stool [...] (Rich Menchaca al, N Engl J Med 2014;370(14):8766-5702.) Cologuard may produce a false negative or false positive result (no colorectal cancer or precancerous polyp present at colonoscopy follow up). A negative Cologuard test result does not guarantee the absence of CRC or advanced adenoma (pre-cancer). The current Cologuard screening interval is every 3 years. ([place] [employer] Society and U.S. Multi-Society Task Force). Cologuard performance data in a 10,000 patient pivotal study using colonoscopy as the reference method can be accessed at the following location: www.iKnowl.WeBRAND/results. Additional description of the Cologuard test process, warnings and precautions can be found at www.Singularu.com. Stool FECES / Unknown 08/31/2022 5 :00 PM CDT 09/02/2022 12:19 PM CDT Donnell Hou MD [facility] SEND OUT ORDERABLES [email or web address] (CLIA #:[id number]) [address] [place] [address] * (ABNORMAL) FECAL OCCULT BLOOD, IMMUNOASSAY (05/19/2012 8:00 AM VICE PRESIDENT OF COMMUNICATIONS) Fecal Occult Blood, Immunoassay Positive( A) [facility] Comment: PLEASE NOTE: Our gastroenterology section recommends: ? 1) That positive FOBT results be followed by colonoscopy - ?without waiting for a second/confirmatory positive test ?before doing so. ? 2) Colonoscopy is the preferred screening method for ?colorectal cancer. If a patient declines colonoscopy for ?routine screening in favor of FOBT, then the recommended ?FOBT frequency is annually. 05/19/2012 8:00 AM VICE PRESIDENT OF COMMUNICATIONS 05/19/2012 3:32 PM VICE PRESIDENT OF COMMUNICATIONS Donnell Hou MD [facility] ORDERA [facility] from Last 3 Months or Most Recently Relevant to Health Maintenance Advance Directives For more information, please contact: [phone] * Full Code (Latest Code Status on File) Date Activated Date Inactivated Comments 08/10/2022 2:31 PM 08/11/2022 3:27 PM Care Teams Blow Moulding Machine Operator Relationship Specialty Start Date End Date Donnell Hou MD [address] [place] [id number] PCP - General 12/11/11
== END 2023-09-07 07:57 | disposition home or self-care (01) ==
PROVIDERS: PCP Family Medicine; Visit Provider Family Medicine
DX: E78.2 Mixed hyperlipidemia (principal); I10 Essential (primary) hypertension; Z11.59 Encounter for screening for other viral diseases; Z12.5 Encounter for screening for malignant neoplasm of prostate
CPT/HCPCS: 80053; 80061; 82043; 82570; 86803; G0103

== ENCOUNTER 2024-09-08 13:19 | Outpatient (CLI) | payer MEDICARE, SELFPAY | END 2024-09-08 13:20 | disposition home or self-care (01) | PROVIDERS: PCP Family Medicine; Visit Provider Family Medicine | DX: E78.2 Mixed hyperlipidemia (principal); I10 Essential (primary) hypertension; R73.03 Prediabetes; Z12.5 Encounter for screening for malignant neoplasm of prostate | CPT/HCPCS: 80053; 80061; 82043; 82570; G0103 ==

== ENCOUNTER 2024-10-31 11:51 | Outpatient (CLI) | payer MEDICARE, SELFPAY | END 2024-10-31 11:52 | disposition home or self-care (01) | PROVIDERS: PCP Family Medicine; Visit Provider Family Medicine | DX: E78.2 Mixed hyperlipidemia (principal); Z12.5 Encounter for screening for malignant neoplasm of prostate | CPT/HCPCS: 80061; G0103 ==

== ENCOUNTER 2024-11-08 09:24 | Day surgery (SDC) | payer MEDICARE, SELFPAY ==
[2024-11-08] VITALS (24 sets, daily range): BP systolic 77–135; BP diastolic 46–95; PULSE 45–81; RESP 12–18; TEMP 36–36.9; O2SAT 94–100; BMI 29.8
[2024-11-08] MEDS: OXYCODONE (CR) 10 MG TAB.ER.12H PO (09:55)
[2024-11-08] MEDS: SODIUM CHLORIDE 0.9 % (FLUSH) 10 ML SYRINGE IVF (09:55)
[2024-11-08] MEDS: LACTATED RINGERS 1000 ML 1,000 ML 100 ML IV ×2 (09:55→13:40)
[2024-11-08] MEDS: CELECOXIB 200 MG CAPSULE PO ×2 (09:56→21:56)
[2024-11-08] MEDS: ACETAMINOPHEN 500 MG TABLET 1000 MG PO ×2 (09:56→18:08)
--- NOTE | 2024-11-08 10:37 | SUR.PREOP ---
Stem Assembler reported BG will be taken pre op d/t DMII. Pt verbalized I am not a diabetic that is news to me. Pt does not take medications for DM, does not check BG at home, and was told he is borderline despite DMII stated in H&P. no pre-op BG drawn.
[2024-11-08] MEDS: MIDAZOLAM HCL 1 MG/ML inj IVP (10:59)
--- NOTE | 2024-11-08 11:05 | P.NB_ITS ---
Nerve Block Nerve Block Time Seen by Provider: 11:02 Date Seen: 11/08/24 Type of block requested by surgeon for post-operative analgesia: adductor canal Side: left Time out performed: Yes Verification of patient name: Yes Verification of date of : Yes Site marking: site marked Name of person performing procedure: Neel Continuous monitoring Was continuous monitoring of O2 sat, B/P, small arms artillery repairer, recorded every 15 minutes?: Yes Procedure Checklist: sterile prep, needles and gloves Ultrasound guided. Images saved: Yes Medications given in 5ml increments after negative aspiration: Marcaine %: 0.25 mL: 15 Needle gauge: 20 Precedex (mcg): 25 Patient tolerated procedure well: Yes Block Charges Block Charge (with Pro Fee): Femoral Nerve Use of Ultrasound Machine for Block: Yes- US Guidance/pain block
--- NOTE | 2024-11-08 11:06 | P.ANES_ITS ---
Anesthesia Charges Start Date/Time Anesthesia Start Date: 11/08/24 Anesthesia Start Time: 12:12 Stop Date/Time Anesthesia Stop Date: 11/08/24 Anesthesia Stop Time: 14:39 Summary Extremes of Age - Over 70 or under 1: MDA Coding CPT Codes CPT Codes: ANESTH KNEE ARTHROPLASTY - 44523 ([id number]) P2 - PATIENT W/MILD SYST DISEASE, QK - STAFF RN 2-4 CNCRNT ANES PROC, QX - ORACLE ADF DEVELOPER SVC W/ MD MED DIRECTION Additional Codes: Summary - Extremes of Age - Over 70 or under 1: MDA ([id number])
--- NOTE | 2024-11-08 11:06 | P.NB_ITS ---
Nerve Block Nerve Block Time Seen by Provider: 11:02 Date Seen: 11/08/24 Type of block requested by surgeon for post-operative analgesia: geniculars Side: left Time out performed: Yes Verification of patient name: Yes Verification of date of : Yes Site marking: site marked Name of person performing procedure: Neel Continuous monitoring Was continuous monitoring of O2 sat, B/P, police academy instructor, recorded every 15 minutes?: Yes Procedure Checklist: sterile prep, needles and gloves Ultrasound guided. Images saved: Yes Medications given in 5ml increments after negative aspiration: Marcaine %: 0.25 mL: 9 Needle gauge: 25 Patient tolerated procedure well: Yes Block Charges Block Charge (with Pro Fee): Genicular Nerve Block
--- NOTE | 2024-11-08 11:06 | W.ANESCHARGE ---
Anesthesia Charges Start Date/Time Anesthesia Start Date: 11/08/24 Anesthesia Start Time: 12:12 Stop Date/Time Anesthesia Stop Date: 11/08/24 Anesthesia Stop Time: 14:39 Summary Extremes of Age - Over 70 or under 1: MDA Coding CPT Codes CPT Codes: ANESTH KNEE ARTHROPLASTY - 57131 ([id number]) P2 - PATIENT W/MILD SYST DISEASE, QK - DIRECTOR OF MUSIC THERAPY 2-4 CNCRNT ANES PROC, QX - FARM EQUIPMENT OPERATOR SVC W/ MD MED DIRECTION Additional Codes: Summary - Extremes of Age - Over 70 or under 1: MDA ([id number])
[2024-11-08] MEDS: TRANEXAMIC ACID 100 MG/ML INJ 1000 MG IV (12:30)
--- NOTE | 2024-11-08 13:44 | CRLHL7_ITS ---
For Patients: As a result of the Cures Act, medical imaging exams and procedure reports are released immediately into your electronic medical record. You may view this report before your referring provider. If you have questions, please contact your health care provider. Indication: Postop TKA Technique: Two views left knee Findings/Impression: Hardware from a left total knee arthroplasty is in satisfactory position. Bone alignment is normal. No sign of acute fracture. Postop changes are within normal limits. Dictated by Manan Olivas MD @ 11/08/2024 3:29:21 PM (Electronically Signed)
--- NOTE | 2024-11-08 13:46 | PM.ORPRC ---
Procedure Note Date of procedure: 11/08/24 Procedure: PREOPERATIVE DIAGNOSIS: Left knee osteoarthritis POSTOPERATIVE DIAGNOSIS: Left knee osteoarthritis NAME OF OPERATION: Left total knee arthroplasty SURGEON: Maciej Hdez MD FENCE GATE ASSEMBLER: Rosalba Chawla PA-C ANESTHESIA: Spinal ESTIMATED BLOOD LOSS: 0 mL COMPLICATIONS: None SPECIMENS: None DRAINS: None PREOPERATIVE ANTIBIOTICS: Ancef 2 grams, antibiotic impregnated cement IMPLANTS: 1. J&J Attune # 7 posterior stabilized femur 2. # 7 fixed-bearing tibia 3. # 7 posterior stabilized, 5 mm fixed-bearing polyethylene 4. 41 patella INDICATIONS: The patient is a 74-year-old with a longstanding history of severe, unrelenting left knee pain secondary to end-stage (grade IV) left knee osteoarthritis. Despite appropriate nonoperative management, including activity modification, anti-inflammatories, ufyl-jiu-mowtxdk pain medication, bracing, physical therapy, and injections they continue to have pain and disability. Operative intervention was offered. The risks, benefits and expected outcomes were discussed in detail. These included but were not limited to: Infection, bleeding, injury to blood vessel or nerve, venous thromboembolism. All questions were answered to their satisfaction. Use of an assistant professor of biology was necessary throughout the case for patient positioning and safety, soft tissue retraction, and closure. PROCEDURE: Spinal anesthesia was administered. The patient was placed supine on the operating table. The assistant professor of biology made sure the patient was positioned appropriately. The lower extremity was prepped and draped in the usual sterile fashion. The limb was exsanguinated with the Aravind bandage. The pneumatic tourniquet was inflated to 300 mmHg. A standard anterior incision was made with the knee in flexion. Subcutaneous dissection was sharply taken through fascial layer #1. Full-thickness medial and lateral flaps were elevated. The assistant professor of biology retracted the soft tissues and protected them throughout the case. A standard subvastus approach was made. The patella was subluxed. The infrapatellar fat pad was debrided. The menisci and cruciate ligaments were sharply d?brided. Marginal osteophytes were d?brided with the rongeur. The drill was used to penetrate the femoral canal. The canal was aspirated and irrigated with pulse lavage. The intramedullary femoral guide was placed for a 5-degree valgus cut, removing 12 mm off the distal femur. The saw was used to make the cut. Whitesides line and the trans epicondylar axis were marked. The femoral sizing guide was pinned onto the distal femur. Three degrees of external rotation nicely parallels the transepicondylar axis. Pins were placed for posterior referencing. The four-in-one cutting guide was pinned onto the distal femur. The anterior, posterior, and chamfer cuts were made. The assistant professor of biology protected the collateral ligaments. The box cutting guide was pinned. The box cuts were made. The boxed trial was placed and was an excellent fit. Drill holes for the lugs were made. Attention was then turned to the proximal tibia. The extramedullary tibial guide was placed for a neutral varus/valgus cut with 5 degrees of posterior slope, removing 1 mm based off the medial tibial surface. The assistant professor of biology protected the collateral ligaments and the neurovascular bundle. The saw was used to make the cut. Trial components were placed. The knee was nicely balanced in both flexion and extension. The trial components were removed. The tray was placed in appropriate rotation, parallel to our tibial cutting pins. It was pinned by the assistant professor of biology and the drill and the punch were used. The tray was removed. The punch was used again. We placed a bone plug in the femoral canal. Attention was then turned to the patella. Beaver patellar thickness was 26 mm. The lobster claw resection guide was used with the 9.5 mm kassie. The saw was used to make the cut. Drill holes were made by the assistant professor of biology. The trial was placed and was an excellent fit. Cancellous surfaces were irrigated with pulse lavage and thoroughly dried by the assistant professor of biology. We cemented the tibial component, then the femoral component. We impacted the 5 mm polyethylene onto the tibial tray. The knee was brought into full extension. We then cemented the patellar component. Excessive cement was removed. The cement was allowed to harden. The knee was taken through a range of motion and was found to be nicely balanced in both flexion and extension. The patella tracks centrally. The assistant professor of biology did a three minute dilute Betadine solution soak. The assistant professor of biology irrigated the wound with 3 liters of normal saline via pulse lavage. The assistant professor of biology reapproximated the extensor mechanism with #1 Vicryl in an interrupted ljwotq-ew-aywwg fashion. The assistant professor of biology then ran the extensor mechanism with a #1 PDO Stratafix. The assistant professor of biology closed the subcutaneous tissues with a 3-0 Stratafix and the skin with a running 3-0 Stratafix in a subcuticular fashion. Glue was used to seal the skin. The assistant professor of biology placed a dry dressing. Sponge and needle counts were correct x2. The patient tolerated the procedure well. There were no apparent complications. They were carefully transferred to the hospital bed and taken to the postanesthesia care unit in satisfactory condition. PLAN: The patient will be mobilized with physical therapy. Aspirin will be used for DVT prophylaxis. They will be discharged to home once medically appropriate.
--- NOTE | 2024-11-08 14:40 | P.ANES_ITS ---
Anesthesia Charges Start Date/Time Anesthesia Start Date: 11/08/24 Anesthesia Start Time: 12:12 Stop Date/Time Anesthesia Stop Date: 11/08/24 Anesthesia Stop Time: 14:39 Coding CPT Codes CPT Codes: ANESTH KNEE ARTHROPLASTY - 22106 ([id number]) P3 - PATIENT W/SEVERE SYS DISEASE, QK - ELEMENT SETTER 2-4 CNCRNT ANES PROC, QX - SQL CONSULTANT SVC W/ MD MED DIRECTION
--- NOTE | 2024-11-08 14:40 | W.ANESCHARGE ---
Anesthesia Charges Start Date/Time Anesthesia Start Date: 11/08/24 Anesthesia Start Time: 12:12 Stop Date/Time Anesthesia Stop Date: 11/08/24 Anesthesia Stop Time: 14:39 Coding CPT Codes CPT Codes: ANESTH KNEE ARTHROPLASTY - 77138 ([id number]) P3 - PATIENT W/SEVERE SYS DISEASE, QK - HOME HEALTH LPN 2-4 CNCRNT ANES PROC, QX - CLIENT SUPPORT COORDINATOR SVC W/ MD MED DIRECTION
--- NOTE | 2024-11-08 14:51 | PM.IMCN1 ---
Date of Consult Patient: [facility] Patient Consult date: 11/08/24 Requesting Physician: Orthopedics Primary Care Provider: Alysha Diaz MD Consult Narrative Reason for consult: HTN Narrative: Alec Clements is a 74 year old male with h/o HTN underwent an elective left total knee replacement today by Dr. Hdez for end-stage left knee osteoarthritis. No complications. Up in chair eating after surgery. Got a dose of oral pain medicine and feels well now. and daughter are in the room with him. Review of Systems Status of ROS: Reports: 6 or more systems reviewed and unremarkable except as noted in History and below [facility] Medical History (Updated 11/08/24 @ 19:46 by Eva Yeboah MD) Elevated PSA ?R97.20 - Elevated prostate specific antigen [PSA] (ICD-10) Elevated AST (SGOT) ?R74.01 - Elevation of levels of liver transaminase levels (ICD-10) Mild anemia ?D64.9 - Anemia, unspecified (ICD-10) Newly diagnosed diabetes ?E11.9 - Type 2 diabetes mellitus without complications (ICD-10) Hypertriglyceridemia ?E78.1 - Pure hyperglyceridemia (ICD-10) Arthritis of shoulder ?M19.019 - Primary osteoarthritis, unspecified shoulder (ICD-10) HTN (hypertension) ?I10 - Essential (primary) hypertension (ICD-10) ST segment abnormality ?R94.31 - Abnormal electrocardiogram [ECG] [EKG] (ICD-10) Subarachnoid hemorrhage following injury with concussion ?S06.6XAA - Traumatic subarachnoid hemorrhage with loss of consciousness status unknown, initial encounter (ICD-10) Surgical History (Updated 11/08/24 @ 19:31 by Eva Yeboah MD) Status post total left knee replacement ?Z96.652 - Presence of left artificial knee joint (ICD-10) History of right hip replacement (06/16/23) ?Z96.641 - Presence of right artificial hip joint (ICD-10) H/O arthroscopy of left knee (~1999) ?Z98.890 - Other specified postprocedural states (ICD-10) Family History Mother Diabetes Father Diabetes Sister Diabetes High blood pressure Social History (Updated 11/08/24 @ 19:39 by Eva Yeboah MD) Narrative: Retired from [email or web address]. - [employer]. Denies tobacco use. Drinks occasional beer, 1-2 per month. What is your current living situation?: I presently have a place to live Problems where you live: no known problems In the past 12 months, utilities in danger of being shut off: no In past 12 months, lack of transportation kept you from medical appts, meetings, work, or getting things needed for daily living: no In the past 12 mos, have been you worried that your food would run out before you had money to buy more?: never true In the past 12 mos, the food you bought just didn't last and you didn't have money to buy more?: never true Smoking Status: Never smoker Do you use any of these nicotine containing products: None How often do you have a drink containing alcohol: 2-4 times a month How many standard drinks containing alcohol do you have on a typical day: 1 or 2 How often do you have six or more drinks on one occasion: Never AUDIT-C Alcohol total score: 2 Non-prescribed substance use: denies use Caffeine: Yes (1 c/day) How often does anyone, including family, friends and others, physically hurt you: never How often does anyone, including family, friends and others, insult or talk down to you: never How often does anyone, including family, friends and others, threaten you with harm: never How often does anyone, including family, friends and others, scream or curse at you: never Meds Home Medications and Allergies Home Medications ?Medication ?Instructions ?Recorded ?Confirmed ?Type aspirin 81 mg chewable tablet 81 mg PO QDAY 09/28/24 11/08/24 History Held on 11/08/24. Instructions: Resume on 12/09/24. Walker- 2 Wheels #1 ea 10/06/24 10/25/24 Rx acetaminophen 500 mg capsule 500 - 1,000 mg (1 - 2 x 500 mg) PO 11/08/24 Rx Q6H PRN pain #100 caps amlodipine 5 mg tablet 5 mg PO HS 11/08/24 11/08/24 History aspirin 81 mg chewable tablet 81 mg PO BID for DVT prophylaxis 11/08/24 Rx (Aspirin Childrens) 30 days #60 tabs olmesartan 40 1 tab PO HS 11/08/24 11/08/24 History mg-hydrochlorothiazide 12.5 mg tablet oxycodone 5 mg tablet 2.5 - 5 mg (0.5 - 1 x 5 mg) PO 11/08/24 Rx Q4-6H PRN Pain #42 tabs sennosides 8.6 mg tablet (Senna 17.2 mg (2 x 8.6 mg) PO BID PRN 11/08/24 Rx Lax) constipation #100 tabs Allergies Allergy/AdvReac Type Severity Reaction Status Date / Time No Known Drug Allergies Allergy Verified 10/31/24 11:10 Exam Narrative: Exam Narrative: General: No acute distress. Awake alert oriented x3. HEENT: Normocephalic atraumatic, pupils equally round and reactive to light and accommodation. Oropharynx clear. Mucous membranes are moist. No JVD. Cardiovascular: Regular rate and rhythm. No murmurs, gallops, or rubs. Chest: No increased work of breathing. Clear to auscultation bilaterally. No crackles or wheezes. Abdomen: Bowel sounds present. Soft, nondistended, nontender. Extremities: Left knee bandage is clean, dry, and intact. No edema, no cyanosis or clubbing. Skin: No jaundice, no pallor, no rashes on visible skin. Const: Vital Signs, click to edit/add: Vital Signs - 24 hr 11/08/24 10:24 11/08/24 11:00 11/08/24 11:15 Temperature 97.8 F Pulse Rate 78 60 55 L Respiratory Rate 16 16 16 Blood Pressure 125/75 120/68 92/63 Pulse Oximetry 96 98 98 Oxygen Delivery Me thod Room Air Room Air Room Air 11/08/24 11:30 11/08/24 14:35 11/08/24 14:40 Temperature 98.2 F Pulse Rate 50 L 51 L 55 L Respiratory Rate 16 12 12 Blood Pressure 86/59 L 107/57 L 109/65 Pulse Oximetry 98 95 96 Oxygen Delivery Me thod Room Air Room Air Room Air 11/08/24 14:45 11/08/24 14:50 Temperature Pulse Rate 48 L 58 L Respiratory Rate 12 12 Blood Pressure 105/65 105/64 Pulse Oximetry 96 97 Oxygen Delivery Me thod Room Air Room Air Assessment and Plan Assessment and plan (1) Status post total left knee replacement: Problem comment: - 11/08/24 Dr. Hdez - routine post op cares - VTE prophylaxis: BID baby aspirin for 30 days. Status: Acute (2) Osteoarthritis of left knee: Status: Chronic (3) HTN (hypertension): Problem comment: BP is low postoperatively, better now, will hold his usual evening antihypertensives, these could be given if his blood pressure becomes elevated. Status: Chronic (4) Newly diagnosed diabetes: Problem comment: 09/08/24 HgbA1C 6.5% Diet controlled Status: Chronic (5) Hypertriglyceridemia: Problem comment: Statin and gemfibrozil was recommended by his primary care provider september, but he declined. He was advised to adopt a lower cholesterol diet and consider meeting with a waiter/waitress club. Status: Chronic
[2024-11-08] MEDS: LACTATED RINGERS 1000 ML 1,000 ML 75 ML IV (16:51)
[2024-11-08] MEDS: CEFAZOLIN 2 GM in 0.9 % SODIUM CHLORIDE Mini-bag 100 ML IVPB (18:07)
--- NOTE | 2024-11-08 18:52 | PC.NURSE ---
End of Shift: Patient pleasant and cooperative. Patient vitally stable, lungs clear, BS WNL, IV SL and intact. Patient rates left knee pain at most 4/10, scheduled tylenol given and 5 mg of oxy. Patient left knee dressing C/D/I. Patient 1 assist/walker, patient has been up in chair and walked the ng. Patient tolerating regular diet, and urinated 400.
[2024-11-08] MEDS: SENNOSIDES 1 TAB TABLET 2 TAB PO (21:55)
[2024-11-08] MEDS: ASPIRIN 81 MG TABLET EC PO (21:56)
[2024-11-09 00:01] VITALS: BP 146/74; PULSE 74; RESP 16; TEMP 36.4; O2SAT 99
[2024-11-09] MEDS: ACETAMINOPHEN 500 MG TABLET 1000 MG PO ×2 (00:10→06:50)
[2024-11-09 02:31] VITALS: BP 142/70; PULSE 87; RESP 17; TEMP 36.6; O2SAT 96
[2024-11-09] MEDS: CEFAZOLIN 2 GM in 0.9 % SODIUM CHLORIDE Mini-bag 100 ML IVPB (02:36)
[2024-11-09 06:54] LABS: INR 1.10 (0.91-1.10); Prothrombin Time 15.0 Seconds
[2024-11-09 07:00] VITALS: BP 124/69; PULSE 66; RESP 16; TEMP 36.8; O2SAT 99
--- NOTE | 2024-11-09 07:33 | PC.NURSE ---
Shift note ([id number]): Patient pleasant, alert and oriented. Ambulated to bathroom with walker and assist of one. BP 77/46 at 191. Pt reported feeling some lightheadedness. Prior shift nurse positioned pt in Trendelenburg at that time. Recheck BP at 1926 was 104/56. Blood pressures have been within normal limits since that time and pt denies any lightheadedness. Dressing clean, dry and intact. Given scheduled Tylenol. Reports tolerating some discomfort in left knee rated 2-3/10.?
--- NOTE | 2024-11-09 08:33 | PM.ORPN ---
Subjective Subjective Time Seen by Provider: 07:20 Date Seen: 11/09/24 Principal diagnosis: Status post left knee replacement Interval history: Nico has been ambulating within his room and down the hallway. He plans to discharge to home. Ortho Exam Narrative Exam Narrative: Alert and oriented x3. Patient is in no acute distress. Converses without labored breathing. Hearing is grossly intact. Ambulates with a walker. Examination of the left knee shows the dressing is intact. There is no erythema or warmth or evidence of infection. Minimal soft tissue edema. Bilateral calves are soft and nontender. CMS is intact left lower extremity. He is unable to straight leg raise in the recliner today. Tenderness about the thigh where the tourniquet had been placed. Const Vital Signs, click to edit/add: Vital Signs - 24 hr 11/08/24 10:24 11/08/24 11:00 11/08/24 11:15 Temperature 97.8 F Pulse Rate 78 60 55 L Pulse Rate [Pulse Oximeter] Respiratory Rate 16 16 16 Blood Pressure 125/75 120/68 92/63 Blood Pressure [Right Arm] Pulse Oximetry 96 98 98 Oxygen Delivery Method Room Air Room Air Room Air 11/08/24 11:30 11/08/24 14:35 11/08/24 14:40 Temperature 98.2 F Pulse Rate 50 L 51 L 55 L Pulse Rate [Pulse Oximeter] Respiratory Rate 16 12 12 Blood Pressure 86/59 L 107/57 L 109/65 Blood Pressure [Right Arm] Pulse Oximetry 98 95 96 Oxygen Delivery Method Room Air Room Air Room Air 11/08/24 14:45 11/08/24 14:50 11/08/24 14:55 Temperature Pulse Rate 48 L 58 L 45 L Pulse Rate [Pulse Oximeter] Respiratory Rate 12 12 12 Blood Pressure 105/65 105/64 107/65 Blood Pressure [Right Arm] Pulse Oximetry 96 97 97 Oxygen Delivery Method Room Air Room Air Room Air 11/08/24 15:00 11/08/24 15:05 11/08/24 15:14 Temperature 97 F L 96.8 F L Pulse Rate 50 L 45 L 47 L Pulse Rate [Pulse Oximeter] Respiratory Rate 12 12 14 Blood Pressure 119/64 114/67 114/64 Blood Pressure [Right Arm] Pulse Oximetry 98 100 97 Oxygen Delivery Method Room Air Room Air Room Air 11/08/24 15:30 11/08/24 15:45 11/08/24 16:07 Temperature 97 F L 96.9 F L 97.1 F L Pulse Rate 51 L 64 53 L Pulse Rate [Pulse Oximeter] Respiratory Rate 14 16 16 Blood Pressure 108/69 116/67 105/63 Blood Pressure [Right Arm] Pulse Oximetry 94 97 97 Oxygen Delivery Method Room Air Room Air Room Air 11/08/24 16:15 11/08/24 16:45 11/08/24 17:15 Temperature 97.2 F L 97.5 F L 97.7 F Pulse Rate 66 81 53 L Pulse Rate [Pulse Oximeter] Respiratory Rate 16 16 16 Blood Pressure 107/68 126/95 H 135/76 Blood Pressure [Right Arm] Pulse Oximetry 99 99 98 Oxygen Delivery Method Room Air Room Air Room Air 11/08/24 18:15 11/08/24 19:15 11/08/24 19:27 Temperature 98.5 F 97.7 F Pulse Rate 78 61 Pulse Rate [Pulse Oximeter] Respiratory Rate 16 16 Blood Pressure 132/81 77/46 L 104/56 L Blood Pressure [Right Arm] Pulse Oximetry 98 99 Oxygen Delivery Method Room Air Room Air 11/08/24 20:08 11/08/24 20:42 11/08/24 21:39 Temperature 97.6 F 97.4 F L Pulse Rate 54 L 60 60 Pulse Rate [Pulse Oximeter] Respiratory Rate 18 17 Blood Pressure 118/81 129/61 125/61 Blood Pressure [Right Arm] Pulse Oximetry 99 100 98 Oxygen Delivery Method Room Air 11/09/24 00:01 11/09/24 00:01 11/09/24 02:31 Temperature 97.6 F 97.8 F Pulse Rate Pulse Rate [Pulse Oximeter] 74 87 Respiratory Rate 16 16 17 Blood Pressure Blood Pressure [Right Arm] 146/74 H 142/70 H Pulse Oximetry 99 99 96 Oxygen Delivery Method Room Air Room Air Room Air 11/09/24 07:00 11/09/24 07:00 11/09/24 07:00 Temperature 98.3 F Pulse Rate Pulse Rate [Pulse Oximeter] 66 Respiratory Rate 16 16 16 Blood Pressure Blood Pressure [Right Arm] 124/69 Pulse Oximetry 99 99 Oxygen Delivery Method Room Air Room Air Assessment and Plan Assessment and plan (1) Status post total left knee replacement: Problem details: - 11/08/24 Dr. Hdez - routine post op cares - VTE prophylaxis: BID baby aspirin for 30 days. Status: Acute Assessment and Plan: Plan for discharge is today to home if they meet discharge criteria. DVT prophylaxis includes aspirin 81 mg twice daily x1 month, Compression stockings as needed for swelling. Frequent ambulation, every hour throughout the day. Remove dressing in 1 week. Observe wound and phone Orthopedics with any questions or concerns Return to clinic in 1 week for a wound check Return to clinic in 6 weeks with surgeon Minimize narcotic use. Wean off and discontinue soon as possible. Activities as tolerated. No strenuous activity. Outpatient physical therapy as scheduled. Ice and elevate the operative extremity. No restriction on ice.
[2024-11-09] MEDS: CELECOXIB 200 MG CAPSULE PO (08:47)
[2024-11-09] MEDS: SENNOSIDES 1 TAB TABLET 2 TAB PO (08:48)
[2024-11-09] MEDS: ASPIRIN 81 MG TABLET EC PO (08:48)
[2024-11-09 08:55] LABS: Hemoglobin* 11.6 gm/dL (13.5-17.5)
--- NOTE | 2024-11-09 09:44 | PC.SOCIAL ---
Discharge planning: SW met with patient and his family to determine if there are any needs. Patient and family state they have everything they need and have no concerns. SW to assist if needs arise.
--- NOTE | 2024-11-09 11:19 | PC.NURSE ---
Discharge: patient alert and oriented, pleasant and cooperative. VSS, on RA tolerating a reg diet. Patient rates pain 2/10 PRN oxy administered x1 prior to therapy. Patient denies N/V/SOB. dressing to Left Knee C/D/I. Active ice to OP site. Patient ambulating to BR and chair with SBA walker GB. Discharged today at 1105 to home with spouse. IV removed tip intact. Discharge instructions given and signed, patient verbalized understanding of instructions. Belongings sheet signed.
== END 2024-11-09 11:05 | disposition home or self-care (01) ==
LOC: OR 09:25 → MEDSURG 09:26
PROVIDERS: Internal Medicine; PCP Family Medicine; Visit Provider Orthopaedic Surgery
PROC: (CPT 27447; principal; 2024-11-08 11:15)
DX: M17.12 Unilateral primary osteoarthritis, left knee (principal); G89.18 Other acute postprocedural pain; E11.9 Type 2 diabetes mellitus without complications; I10 Essential (primary) hypertension; D64.9 Anemia, unspecified; Z79.82 Long term (current) use of aspirin; E78.1 Pure hyperglyceridemia; Z51.81 Encounter for therapeutic drug level monitoring
CPT/HCPCS: 27447; 01402; 36415; 64447; 64454; 73560; 76942; 85018; 85610; 97110; 97116; 97161; 97165; 97530; 97535; 99100; A9270; C1776; J0665; J0690; J2250; J2405; J2704; J3010; J7120

== ENCOUNTER 2025-02-06 11:12 | Outpatient (CLI) | payer MEDICARE, SELFPAY ==
[2025-02-06 11:57] LABS: PCR FLU A Negative PCR FLU A (Negative); PCR FLU B Negative PCR FLU B (Negative); SARS PCR* Negative SARS-CoV-2 (Negative)
== END 2025-02-06 11:13 | disposition home or self-care (01) ==
LOC: FRMREF 11:12
PROVIDERS: PCP Family Medicine; Visit Provider Physician Assistant Medical
DX: R11.10 Vomiting, unspecified (principal); R68.83 Chills (without fever)
CPT/HCPCS: 87086; 87636

== ENCOUNTER 2025-03-27 07:25 | Outpatient (CLI) | payer MEDICARE, SELFPAY | END 2025-03-27 07:26 | disposition home or self-care (01) | LOC: FRMREF 07:25 | PROVIDERS: PCP Family Medicine; Visit Provider Family Medicine | DX: E11.9 Type 2 diabetes mellitus without complications (principal); I10 Essential (primary) hypertension; E78.1 Pure hyperglyceridemia | CPT/HCPCS: 80053 ==